=== PATIENT | female | born 1980 | race Caucasian/White ===

== ENCOUNTER 2024-02-26 12:49 | Outpatient (OUT) | payer MEDICARE, MEDICAID, SELFPAY ==
--- NOTE | 2024-02-26 | CONS_ITS ---
CONSULTATION DATE: 02/26/2024 TO: Dr. Longo CHIEF COMPLAINT: Includes severe left leg pain. HISTORY OF PRESENT ILLNESS: Review of systems, past medical/surgical history were obtained and documented on the health questionnaire and is available upon request. She is a 43-year-old female, reports having pain in the above mentioned areas for the last one year. She reports the pain as being 4-7/10 pain in the lower back and lower extremity, described as a sharp pain with a deep aching component, increased with activities such as standing, walking and performing transitioning maneuvers. Patient feels most comfortable in the semi-recumbent position. She also reports sitting too long is also uncomfortable at times. Denies any change in bowel and bladder habits or new sensorimotor changes in her lower extremities. MEDICATIONS: She currently has been on ibuprofen for at least the last three months. She reports that she has to limit the use of nonsteroidal agents secondary to ?easy bruisability?. EXAMINATION: Notable for patient having hypoesthesia along the left L4 dermatome, 3/5 strength of the left quadriceps and anterior tibialis, depressed patellar reflex. Straight leg raise is equivocally positive at approximately 90 degrees. She had no signs consistent with myelopathy. She had severe myofascial spasm of the left lumbar paravertebral muscles. IMPRESSION: Our impression is patient with chronic pain. She also has had physical therapy. She finished her last physical therapy sometime in the end of January, and she reports she went through her full course of physical therapy. RECOMMENDATIONS: I recommend patient discontinue her baclofen secondary to ineffectiveness. We will trial her on Zanaflex 4 mg, half a pill to one pill b.i.d. Obtain an x-ray of her lumbar spine, as well as MRI of her lumbar spine to determine if there is a mechanical etiology to her left L4 radicular process. As part of providing excellent, safe, comprehensive care, the following was completed at our patient's visit: 1. A medication reconciliation and review to ensure accurate knowledge of current/active medications, including asking our patients to inform us about any [id number] medications or herbal remedies/nutritional supplements/alternative remedies. 2. A review to specifically ensure our patients have had annual screening for: elevated body mass index (BMI, see intake chart for exact total), tobacco use, screening for depression, and screening for unhealthy alcohol use. When screening is concerning, patients are provided with education and the specific recommendation to discuss the concerning health issue and treatment options with their primary care provider. PERLITA
== END 2024-02-26 12:50 | disposition home or self-care (01) ==
PROVIDERS: PCP Family Medicine; Visit Provider Anesthesiology Pain Medicine
DX: G89.4 Chronic pain syndrome (principal); M79.662 Pain in left lower leg
CPT/HCPCS: G0463

== ENCOUNTER 2024-02-26 13:53 | Outpatient (OUT) | payer MEDICARE, MEDICAID, SELFPAY ==
--- NOTE | 2024-02-26 14:04 | XR_ITS ---
[facility] [id number] Patient Name: WON MCINTYRE MRN: [id number] date: 1980 Sex: F Assigned Patient Location: [facility] Current Patient Location: Accession/Order Number: [id number] Exam Date: 02/26/2024 14:15 Report Date: 02/27/2024 08:53 At the request of: VU AGUIRRE Procedure: XR lumbar spine 2-3V EXAMINATION: XR lumbar spine 2-3V HISTORY: Low Back Pain COMPARISON: No relevant comparison available. FINDINGS: BONES: Normal alignment with no acute fracture or spondylolisthesis. Mild degenerative spondylosis. Ffqv-lc-prvlqpea facet osteoarthropathy DISC SPACES: Normal. No significant disc height narrowing, subluxation, or endplate abnormality. PARASPINOUS: Negative. No paraspinous abnormality is seen. OTHER: Large amount of stool XR/XR lumbar spine 2-3V IMPRESSION: Mild degenerative changes Electronically authenticated by: SHERRIE JAEGER Date: 02/27/2024 08:53
== END 2024-02-26 13:54 | disposition home or self-care (01) ==
PROVIDERS: PCP Family Medicine; Visit Provider Anesthesiology Pain Medicine
DX: M54.50 Low back pain, unspecified (principal); M51.36 Other intervertebral disc degeneration, lumbar region
CPT/HCPCS: 72100

== ENCOUNTER 2024-03-11 13:21 | Outpatient (OUT) | payer MEDICARE, MEDICAID, SELFPAY ==
--- NOTE | 2024-03-11 13:28 | MR_ITS ---
[address] [address] Patient Name: WON MCINTYRE MRN: [id number] date: 1980 Sex: F Assigned Patient Location: MRI Current Patient Location: Accession/Order Number: [id number] Exam Date: 03/11/2024 13:39 Report Date: 03/12/2024 09:55 At the request of: VU AGUIRRE Procedure: MR lumbar spine wo con EXAMINATION: MR lumbar spine wo con HISTORY: Lumbar Radiculopathy ; low back and left leg pain COMPARISON: CT lumbar spine 04/09/2014 TECHNIQUE: A variety of imaging planes and parameters were utilized for visualization of suspected pathology. FINDINGS: For the purposes of numbering, sagittal T2 image # 8 extends from the T11 vertebral body superiorly to the S3 level inferiorly. PARASPINAL AREA: Normal with no visible mass. BONES: No fracture, pars defect, or osseous lesion. CORD/CAUDA EQUINA: Normal caliber, contour, and signal intensity. DISC LEVELS: 12-L1: Mild-moderate central canal narrowing without significant foraminal narrowing. Mild diffuse disc bulging with minimal disc at reduction. No significant facet arthropathy. L1-L2: No significant disc/facet abnormality, spinal stenosis, or foraminal stenosis. L2-L3: No significant disc/facet abnormality, spinal stenosis, or foraminal stenosis. L3-L4: Minimal central canal and foramen narrowing bilaterally. Minimal disc bulging without disc height reduction. Mild bilateral facet arthropathy. L4-L5: Mild degenerative facet arthropathy without significant central canal or foraminal narrowing. Normal disc. L5-S1: Early degenerative disc disease is present without focal protrusion or neural impingement. MR/MR lumbar spine wo con IMPRESSION: 1. Minimal degenerative changes of the spine, most notable at T12-L1 where there is mild/moderate central canal narrowing secondary to mild diffuse disc bulging. 2. No significant central canal or foraminal stenosis of the lumbar spine. Electronically authenticated by: LEXY BRENNER Date: 03/12/2024 09:55
== END 2024-03-11 13:22 | disposition home or self-care (01) ==
LOC: MRI 13:22
PROVIDERS: PCP Family Medicine; Visit Provider Anesthesiology Pain Medicine
DX: M54.16 Radiculopathy, lumbar region (principal); M51.36 Other intervertebral disc degeneration, lumbar region
CPT/HCPCS: 72148

== ENCOUNTER 2024-03-25 13:44 | Outpatient (OUT) | payer MEDICARE, SELFPAY ==
--- NOTE | 2024-03-25 | CONS_ITS ---
CONSULTATION DATE: 03/25/2024 TO: Dr. Longo HISTORY: Patient returns today complaining of pain in her mid back area. She describes the pain as being 6-7/10 pain, sharp in character, increased with activity such as standing, walking and performing transitioning maneuvers. Denied any change in bowel and bladder habits or new sensorimotor change in the lower extremities. EXAMINATION: Notable for patient having no clinical radiculopathy or myelopathy involving the lower extremities. She have severe pain with lumbar facet loading maneuvers on the left side at L1-2 and L2-3, with associated myofascial spasm along the lumbar paravertebral muscles. Her NICOLETTE on today?s visit was 20%. MEDICATIONS: Continues to use Zanaflex 4 mg pills, half a pill b.i.d., which offers only marginal reduction in pain symptoms. IMPRESSION: Patient appears to have chronic pain secondary to lumbosacral spondylosis, facet joint loading pain clinically. We did review her lumbosacral MRI in quite a bit of detail. RECOMMENDATIONS: We recommend proceeding with a diagnostic left sided L1-2 , L2-3 medial branch block. I have increased the Zanaflex 4 mg pills, half a pill to one pill up to b.i.d. as tolerated. As part of providing excellent, safe, comprehensive care, the following was completed at our patient's visit: 1. A medication reconciliation and review to ensure accurate knowledge of current/active medications, including asking our patients to inform us about any mrvq-lai-eyjhtua medications or herbal remedies/nutritional supplements/alternative remedies. 2. A review to specifically ensure our patients have had annual screening for: elevated body mass index (BMI, see intake chart for exact total), tobacco use, screening for depression, and screening for unhealthy alcohol use. When screening is concerning, patients are provided with education and the specific recommendation to discuss the concerning health issue and treatment options with their primary care provider. PERLITA
== END 2024-03-25 13:45 | disposition home or self-care (01) ==
LOC: PM 13:44
PROVIDERS: PCP Family Medicine; Visit Provider Anesthesiology Pain Medicine
DX: M47.816 Spondylosis without myelopathy or radiculopathy, lumbar region (principal); G89.4 Chronic pain syndrome
CPT/HCPCS: G0463

== ENCOUNTER 2024-04-22 07:58 | Day surgery (SDC) | payer MEDICARE, MEDICAID, SELFPAY ==
--- OUTSIDE RECORDS SUMMARY | 2024-04-22 08:18 | XMS_ITS | CCD ---
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 Role Phone ROWAN CASANOVA Primary Care Unavailable BRENDA WEI Attending Unavailab JUICE Sweet Attending Unavailable JUAN, DR IVORY Consulting [facility] GOL[facility] Primary Care Unavailable JUAN, DR IVORY Attending Unavailable JUAN, DR IVORY Admitting Unavailable JESÚS, DR CASTRO Consulting Unavailable Solo Navarrete Attending Unavailable Rumschlag DO, Kadi K Primary Care Provider Pawan Kerns MD Primary Care Provider RUMSCHLAG, KADI K Primary Care Unavailable MEAGAN MORAN Attending Unavailable OPHELIA LAZO Admitting Unavailable INPATIENT, TELENEUROLOGY Consulting Unavail able ÓSCAR WALLS Attending Unavailable ÓSCAR WALLS Referring Unavailable RUMSCHLAG, KADI K Primary Care Unavailable ÓSCAR WALLS Attending Unavailable ÓSCAR WALLS Referring Unavailable RUMSCHLAG, KADI K Primary Care Unavailable VICKY RUSHING Attending Unavailable VICKY RUSHING Referring Unavailable RUMSCHLAG, KADI K Primary Care Unavailable ÓSCAR WALLS Attending Unavailable ÓSCAR WALLS Referring Unavailable RUMSCHLAG, KADI K Primary Care Unavailable VICKY RUSHING Attending Unavailable СЕРГЕЙ VICKY M Referring Unavailable RUMSCHLAG, KADI K Primary Care Unavailable VICKY RUSHING Attending Unavailable СЕРГЕЙ, VICKY M Referring Unavailable RUMSCHLAG, KADI K Primary Care Unavailable SHIRA FRANCO Attending Unavailable SHIRA FRANCO Referring Unavailable RUMSCHLAG, KADI K Primary Care Unavailable RUMSCHLAG, KADI K Primary Care Unavailable JUVE ALANIZ Attending Unavailable RUMSCHLAG, KADI K Primary Care Unavailable JUVE ALANIZ Attending Unavailable RUMSCHLAG, KADI K Primary Care Unavailable JUVE ALANIZ Attending Unavailable JUAN FRANCO Attending Unavailable RUMSCHLAG, KADI K Referring Unavailable KADI HERMOSILLO Primary Care Unavailable Kadi Hermosillo DO Primary Care Provider MATTHEW GIRON Attending Unavailable JESÚS, MATTHEW Godoy Referring Unavailable JUVE GARRETT Attending Unavailable KADI HERMOSILLO Referring Unavailable GIRON, MATTHEW Godoy Attending Unavailable GIRON, MATTHEW Godoy Attending Unavailable XAVIER, GERARDO Godoy Attending Unavailable GIRON, MATTHEW Godoy Referring Unavailable XAVIER, GERARDO Godoy Attending Unavailable GIRON, J Referring Unavailable XAVIER, GERARDO Godoy Attending Unavailable GIRON, J Referring Unavailable XAVIER, GERARDO Godoy Attending Unavailable GIRON, J Referring Unavailable JANETH RODRIGUEZ Attending Unavailable LEXY PASCUAL Attending Unavailable XAVIER, GERARDO Godoy Attending Unavailable GIRON, MATTHEW Godoy Referring Unavailable ANGIE YOUNGBLOOD Attending Unavailable GIRON, MATTHEW Godoy Referring Unavailable XAVIER, GERARDO Godoy Attending Unavailable GIRON, MATTHEW Godoy Referring Unavailable GIRON, MATTHEW Godoy Attending Unavailable XAVIER, GERARDO Godoy Attending Unavailable GIRON, MATTHEW Godoy Referring Unavailable XAVIER, GERARDO Godoy Attending Unavailable GIRON, MATTHEW Godoy Referring Unavailable JR. MORENO GEORGE C Attending Unavaila ble Allergies Allergy Classification Reported Allergen(s) Allergy Type Date of Onset Reaction(s) Facility (2 sources) Amoxicillin; Translations: [AMOXICILLIN] Drug Allergy 02-14-20 17 [facility] Repository (2 sources) Aspirin; Translations: [ASPIRIN] Drug Allergy 02-14-20 17 [facility] Repository (2 sources) Amoxicillin Drug Allergy 02-14-20 17 [facility] Work Phone: (2 sources) Aspirin Drug Allergy 02-14-20 17 Other (See Comments) [facility] (6 sources) Ibuprofen; Translations: [IBUPROFEN] Drug Allergy 02-14-20 Other (See Comments) [facility] (3 sources) traMADol; Translations: [TRAMADOL HCL] Drug Allergy 03-09-20 19 [facility] (3 sources) Aluminum aspirin Drug Allergy 12-10-19 [facility] (3 sources) HYDROmorphone Drug Allergy 04-18-20 [facility] (3 sources) Ketorolac trometamol Allergy to substance 04-18-20 [facility] (3 sources) Penicillins Drug Intolerance 12-10-19 17 [facility] (3 sources) traMADol Drug Allergy 03-09-20 19 [facility] (3 sources) Amoxicillin-Pot Clavulanate Drug Allergy 04-18-20 23 [facility] Work Phone: Medications Current Medications Medication Drug Class(es) Dates Sig (Normalized) Sig (Original) acetaminophen 325 mg / HYDROcodone bitartrate 5 mg oral tablet (3 sources) Opioid Agonist Start: 07-17-2023 HYDROcodone-aceta minophen ([place]) 5-325 MG tablet albuterol 0.83 mg/ml inhalation solution (7 sources) beta2-Adrenergic Agonist Start: 03-16-2023 albuterol (2.5 MG/3ML) 0.083% nebulizer solution USE 1 VIAL IN NEBULIZER EVERY 4 HOURS NEEDED 0 03/16/2023 Active take 1.25 mg by inha lation every six hours as needed for wheezing albuterol (ACCUNEB) 1.25 mg/3 mL nebuliz er solution Inhale 3 mL (1.25 mg total) by nebulization every 6 (six) hours as needed for wheezing. 0 Active take 2 puff(s) by in halation every six hours as needed for wheezing albuterol (PROVENTIL HFA;VENTOLIN HFA) 9 0 mcg/actuation inhaler Inhale 2 puffs every 6 (six) hours as needed for wheezing. 0 Active baclofen 20 mg oral tablet (5 sources) gamma-Aminobutyric Acid-ergic Agonist Start: 10-25-2023 take 1 tablet by mouth twice daily as needed baclofen (Lioresal) 20 MG tablet Take 20 mg by mouth 2 (two) times a day as needed 0 10/25/2023 Active Start: 02-15-2023 take 1 tablet by mercedes th twice daily as needed baclofen (LIORESAL) 10 mg tablet Take 1 tablet (10 mg total) by mouth 2 (two) times a day as needed. 0 02/15/2023 Active benzonatate 100 mg oral capsule (1 source) Non-narcotic Antitussive Start: 11-21-2023 End: 11-28-2023 take 1 capsule by mouth every eight hours benzonatate (TESSALON PERLES) 100 mg capsule Take 1 capsule (100 mg total) by mouth every 8 (eight) hours for 7 days. 21 capsule 0 11/21/2023 11/28/2023 Active empagliflozin 10 mg oral tablet (2 sources) Sodium-Glucose Cotransporter 2 Inhibitor take 1 tablet by mouth in the morning empagliflozin (JARDIANCE) 10 mg tablet tablet Take 1 tablet (10 mg total) by mouth in the morning. 0 Active 60 actuat fluticasone propionate 0.5 mg/actuat / salmeterol 0.05 mg/actuat dry powder inhaler (5 sources) Corticosteroid, beta2-Adrenergic Agonist Start: 04-20-2021 take 1 puff(s) by inhalation once ADVAIR DISKUS 500-50 mcg/dose DISKUS Inhale 1 puff every 12 (twelve) hours. 0 04/20/2021 Active take 2 puff(s) by in halation in the morning fluticasone-salmeterol (Advair) 45-21 MC G/ACT inhaler Inhale 2 puffs in the morning and 2 puffs before bedtime. Rinse mouth with water after use to reduce aftertaste and incidence of candidiasis. Do not swallow.. 0 Active insulin aspart, human 100 unt/ml injectable solution (2 sources) Insulin Analog insulin aspart U-100 (NovoLOG) 100 unit/mL injection Inject 0.06 mL (6 Units total) under the skin in the morning and 0.06 mL (6 Units total) at noon and 0.06 mL (6 Units total) in the evening. Inject before meals. 0 Active 3 ml insulin glargine 100 unt/ml pen injector (2 sources) Insulin Analog Start: 1 LANTUS SOLOSTAR U-100 INSULIN 100 unit/mL (3 mL) insulin pen Inject 60 Units under the skin once daily at bedtime. 0 03/18/2021 Active lisinopril 5 mg oral tablet (5 sources) Angiotensin Converting Enzyme Inhibitor Start: 2 take 1 tablet by mouth in the morning lisinopriL (PRINIVIL,ZESTRIL) 5 mg tablet Take 1 tablet (5 mg total) by mouth in the morning. 90 tablet 3 08/03/2022 Active Start: 07-30-2022 take 1 tablet by mercedes th once daily lisinopril 2.5 MG tablet TAKE 1 TABLET BY MOUTH ONCE DAILY FOR 90 DAYS 0 07/30/2022 Active metFORMIN hydrochloride 1000 mg oral tablet (2 sources) Biguanide take 1 tablet by mouth in the morning, then take 1 tablet by mouth at mealtime metFORMIN (GLUCOPHAGE) 1000 mg tablet Take 1 tablet (1,000 mg total) by mouth in the morning and 1 tablet (1,000 mg total) in the evening. Take with meals. 0 Active montelukast 10 mg oral tablet (2 sources) Leukotriene Receptor Antagonist take 1 tablet by mouth once daily montelukast (SINGULAIR) 10 mg tablet Take 1 tablet (10 mg total) by mouth nightly. 0 Active idhtquwg-fued-CY-calciu m &mins (THERAGRAN-M) 9 mg iron-400 mcg tablet (2 sources) vpucwazw-svzv-ML -ca lcium &mins (THERAGRAN-M) 9 mg iron-400 mcg tablet Take 1 tablet by mouth in the morning. 0 Active omeprazole 40 mg delayed release oral capsule (5 sources) Proton Pump Inhibitor take 1 capsule by mouth in the morning omeprazole (PriLOSEC) 40 mg capsule Take 1 capsule (40 mg total) by mouth in the morning. 0 Active phenazopyridine hydrochloride 200 mg oral tablet (3 sources) Start: 05-08-20 Pyridium 200 MG tablet every 8 (eight) hours. 0 05/08/2023 Active rosuvastatin calcium 40 mg oral tablet (5 sources) HMG-CoA Reductase Inhibitor Start: 02-23-20 take 1 tablet by mouth once daily rosuvastatin (Crestor) 40 MG tablet TAKE 1 TABLET BY MOUTH ONCE DAILY FOR 90 DAYS 0 02/22/2023 Active take 2 tablets by mouth in the m orning rosuvastatin (CRESTOR) 20 mg tablet Take 2 tablets (40 mg total) by mouth in the morning. 0 Active SITagliptin 100 mg oral tablet (2 sources) Dipeptidyl Peptidase 4 Inhibitor Start: 04-20-2021 take 1 tablet by mouth in the morning JANUVIA 100 mg tablet Take 1 tablet (100 mg total) by mouth in the morning. 0 04/20/2021 Active 24 hr venlafaxine 150 mg extended release oral capsule (5 sources) Serotonin and Norepinephrine Reuptake Inhibitor Start: 02-22-2023 take 1 capsule by mouth once daily at mealtime venlafaxine XR (Effexor XR) 150 MG 24 hr capsule TAKE 1 CAPSULE BY MOUTH ONCE DAILY WITH FOOD 0 02/22/2023 Active take 2 tablets by mo ut in the morning, then take 2 tablets by mouth at bedtime venlafaxine (EFFEXOR) 75 mg tablet Take 2 tablets (150 mg total) by mouth in the morning and 2 tablets (150 mg total) before bedtime. 0 Active Completed/Discontinued Medications Medication Drug Class(es) Dates Sig (Normalized) Sig (Original) predniSONE 20 mg oral tablet (1 source) Start: 11-23-2023 End: 11-27-2023 take 2 tablets by mouth in the morning predniSONE (DELTASONE) 20 mg tablet Take 2 tablets (40 mg total) by mouth in the morning for 4 days. 8 tablet 0 11/23/2023 11/27/2023 Problems Active Problems Problem Classification Problem Date Documented Da te Episodic/Chronic Abdominal pain (4 sources) Pelvic and perineal pain; Translations: [PELVIC AND PERINEAL PAIN] Onset: 1 Episodic Acute bronchitis (1 source) Acute bronchitis, unspecified; Translations: [Acute bronchitis, unspecified] Onset: 4 Episodic Anxiety disorders (6 sources) Mixed anxiety and depressive disorder; Translations: [Anxiety disorder, unspecified] Onset: 2 02-07-2022 Chronic Asthma (5 sources) Asthma; Translations: [Unspecified asthma, uncomplicated] Onset: 2 02-07-2022 Chronic Blindness and vision defects (5 sources) Visual impairment; Translations: [Unspecified visual loss] Onset: 2 02-07-2022 Chronic Cardiac dysrhythmias (1 source) Tachycardia, unspecified; Translations: [Tachycardia, unspecified] Onset: 3 Episodic Chronic obstructive pulmonary disease and bronchiectasis (5 sources) Chronic obstructive lung disease; Translations: [Chronic obstructive pulmonary disease, unspecified] Onset: 2 10-02-2023 Chronic Chronic ulcer of skin (3 sources) Chronic ulcer of foot; Translations: [Non-pressure chronic ulcer of other part of unspecified foot with unspecified severity] Onset: 3 05-18-2023 Chronic Diabetes mellitus without complication (6 sources) Type 2 diabetes mellitus without complications; Translations: [Type 2 diabetes mellitus] Onset: 1 10-02-2023 Chronic Diseases of white blood cells (5 sources) Band neutrophil count above reference range; Translations: [Bandemia] Onset: 3 Resolved: 4 08-02-2023 Chronic Disorders of lipid metabolism (5 sources) Hyperlipidemia; Translations: [Hyperlipidemia, unspecified] Onset: 2 02-07-2022 Chronic Esophageal disorders (5 sources) Gastroesophageal reflux disease without esophagitis; Translations: [Gastro-esophageal reflux disease without esophagitis] Onset: 2 10-02-2023 Chronic Essential hypertension (5 sources) Hypertensive disorder; Translations: [Essential (primary) hypertension] Onset: 2 10-02-2023 Chronic Gastroduodenal ulcer (except hemorrhage) (5 sources) Peptic ulcer; Translations: [Peptic ulcer, site unspecified, unspecified as acute or chronic, without hemorrhage or perforation] Onset: 2 02-07-2022 Chronic Headache; including migraine (5 sources) Migraine; Translations: [Migraine, unspecified, not intractable, without status migrainosus] Onset: 2 02-07-2022 Chronic Joint disorders and dislocations; trauma-related (6 sources) Chondromalacia of left patella; Translations: [Chondromalacia patellae, left knee] Onset: 3 05-18-2023 Chronic Malaise and fatigue (1 source) Fatigue Onset: 3 Episodic Mood disorders (6 sources) Bipolar disorder; Translations: [Bipolar disorder, unspecified] Onset: 2 10-02-2023 Chronic Osteoarthritis (3 sources) Arthritis of left knee; Translations: [Unilateral primary osteoarthritis, left knee] Onset: 3 05-18-2023 Chronic Other connective tissue disease (1 source) Pain in right toe(s); Translations: [Pain in right toe(s)] Onset: 4 Episodic Other connective tissue disease (1 source) Pain in toe Onset: 4 Episodic Other ear and sense organ disorders (1 source) Hearing loss; Translations: [Unspecified hearing loss, unspecified ear] 11-17-2023 Chronic Other gastrointestinal disorders (1 source) Constipation, unspecified; Translations: [CONSTIPATION UNSPECIFIED] Onset: 1 Episodic Other liver diseases (1 source) Abnormal levels of other serum enzymes; Translations: [ABNORMAL LEVELS OTHER SERUM ENZYMES] Onset: 1 Episodic Other nervous system disorders (3 sources) Difficulty walking; Translations: [Difficulty in walking, not elsewhere classified] Onset: 3 05-18-2023 Chronic Other nervous system disorders (3 sources) Chronic pain; Translations: [Other chronic pain] Onset: 3 05-18-2023 Chronic Other non-traumatic joint disorders (1 source) Pain in right elbow; Translations: [Pain in right elbow] Onset: 4 Episodic Other non-traumatic joint disorders (1 source) Pain in elbow Onset: 4 Episodic Other non-traumatic joint disorders (1 source) Pain in left shoulder; Translations: [Pain in left shoulder] Onset: 3 Episodic Other non-traumatic joint disorders (1 source) Shoulder pain Onset: 3 Episodic Other screening for suspected conditions (not mental disorders or infectious disease) (3 sources) Ultrasound scan abnormal; Translations: [Abnormal findings on diagnostic imaging of other specified body structures] Onset: 3 05-18-2023 Chronic Paralysis (6 sources) Cerebral palsy; Translations: [Cerebral palsy, unspecified] Onset: 2 10-02-2023 Chronic Residual codes; unclassified (5 sources) Delirium; Translations: [Disorientation, unspecified] Onset: 3 Resolved: 4 10-01-2023 Episodic Residual codes; unclassified (1 source) Tobacco user; Translations: [Tobacco use] 11-17-2023 Episodic Residual codes; unclassified (1 source) Altered mental status, unspecified; Translations: [Altered mental status, unspecified] Onset: 4 Episodic Residual codes; unclassified (1 source) Memory loss Onset: 4 Episodic Residual codes; unclassified (1 source) Disorientation, unspecified; Translations: [Disorientation, unspecified] Onset: 3 Episodic Residual codes; unclassified (1 source) Altered mental status; Translations: [Altered mental status, unspecified] 11-27-2023 Episodic Rheumatoid arthritis and related disease (5 sources) Rheumatoid arthritis; Translations: [Rheumatoid arthritis, unspecified] Onset: 2 02-07-2022 Chronic Spondylosis; intervertebral disc disorders; other back problems (10 sources) Lumbosacral spondylosis without myelopathy; Translations: [Spondylosis without myelopathy or radiculopathy, lumbosacral region] Onset: 7 02-13-2017 Chronic Substance-related disorders (1 source) Nicotine dependence, cigarettes, uncomplicated; Translations: [NICOTINE DEPEND CIGARETTES UNCOMP] Onset: 1 Chronic Unclassified (1 source) Cold Like Symptoms Onset: 4 Unclassified (1 source) Ill Onset: 3 Past or Other Problems Problem Classification Problem Date Documented Da te Episodic/Chronic Biliary tract disease (3 sources) Biliary calculus; Translations: [Calculus of gallbladder without cholecystitis without obstruction] Onset: 05-18-2023 05-18-2023 Episodic Diabetes mellitus with complications (8 sources) Diabetic ketoacidosis without coma; Translations: [Type 1 diabetes mellitus with ketoacidosis without coma] Onset: 04-10-2022 Resolved: 10-02-2023 10-02-2023 Chronic Diseases of mouth; excluding dental (4 sources) Lesion of salivary gland; Translations: [Disease of salivary gland, unspecified] Onset: 11-14-2023 Resolved: 11-14-2023 11-14-2023 Episodic Heart valve disorders (5 sources) Heart murmur; Translations: [Cardiac murmur, unspecified] Onset: 02-07-2022 02-07-2022 Episodic Mood disorders (1 source) Mood disorders Onset: 11-27-2023 11-27-2023 Neoplasms of unspecified nature or uncertain behavior (5 sources) Thrombocytosis; Translations: [Thrombocytosis] Onset: 08-02-2023 Resolved: 11-14-2023 08-02-2023 Episodic Other and unspecified benign neoplasm (3 sources) Benign neoplasm of bone; Translations: [Benign neoplasm of bone and articular cartilage, unspecified] Onset: 05-18-2023 05-18-2023 Episodic Other bone disease and musculoskeletal deformities (5 sources) Disorder of bone, unspecified; Translations: [Disorder of bone and cartilage, unspecified] Onset: 09-27-2017 09-27-2017 Episodic Other connective tissue disease (3 sources) Recurrent falls ; Translations: [Repeated falls] Onset: 05-18-2023 05-18-2023 Episodic Other non-traumatic joint disorders (3 sources) Pain in left knee; Translations: [Pain in joint, lower leg] Onset: 09-21-2018 05-18-2023 Episodic Other screening for suspected conditions (not mental disorders or infectious disease) (3 sources) Mammography abnormal; Translations: [Other abnormal and inconclusive findings on diagnostic imaging of breast] Onset: 05-18-2023 05-18-2023 Episodic Spondylosis; intervertebral disc disorders; other back problems (5 sources) Backache; Translations: [Dorsalgia, unspecified] Onset: 02-07-2022 02-07-2022 Episodic Thyroid disorders (5 sources) Disorder of thyroid gland; Translations: [Disorder of thyroid, unspecified] Onset: 02-07-2022 02-07-2022 Episodic Results Test Name Value Interpretation Reference Range Facility RAPID STREP SCR NURSINGon S. pyogenes Ag EIA Ql (Throat) Negative [facility] Comment on above: Performed By: #### C BCA, CMP, 63350-9, 5643-2 #### [facility] ([id number]) [address] [place] [address], [place] [address] SARS/FLU A+B/RSV by NAAT/Mol ecularon 11-21-2023 SARS/FLU A+B/RSV by NAAT/Molecular FLU A PCR Negative (qualifier value) FLU B PCR Negative (qualifier value) RSV by PCR Negative (qualifier value) SARS CoV 2 Not detected (qualifier value) NOTE The Xpert Xpress SARS-CoV-2/Flu/RSV Plus test is a rapid, multiplexed real-time RT-PCR test intended for the simultaneous qualitative detection and differentiation of SARS-CoV-2, influenza A, influenza B and respiratory syncytial virus (RSV) viral RNA from individuals suspected of respiratory viral infection consistent with COVID-19 by their healthcare provider. This test has not been validated in asymptomatic patients. The Xpert Xpress SARS-CoV-2 test is intended for use by qualified and trained operators who are performing tests using either [employer] or [employer] systems and is limited to laboratories that meet the CLIA requirements to perform high and moderate complexity tests. The Xpert Xpress SARS-CoV-2/Flu/RSV Plus is only for use under the Food and Drug Administration's Emergency Use Authorization. Results are for the simultaneous detection and differentiation of SARS-CoV-2, influenza A, influenza B and RSV nucleic acids in clinical specimens. SARS-CoV-2, influenza A, influenza B and RSV RNA identified by this test are generally detectable in upper respiratory samples during the acute phase of infection. Positive results are indicative of the presence of the identified virus, but do not rule out bacterial infection or co-infection with other pathogens not detected by this test. Clinical correlation with patient history and other diagnostic information is necessary to determine patient infection status. The agent detected may not be the definite cause of disease. Negative results do not preclude SARS-CoV-2, influenza A, influenza B and RSV infection and should not be used as the sole basis for treatment or other patient management decisions. Negative results must be combined with clinical observations, patient history and epidemiological information. An Invalid result may occur with specimen-associated inhibition unable to be resolved with specimen repeat. Fact Sheet for Healthcare Providers: https://www.fda.gov/me pascual/370435/download Fact Sheet for Patients: https://www.fda.gov/me pascual/361878/download Normal [facility] Comment on above: Performed By: #### C [facility], 10629-2, 5643-2 #### [facility] ([id number]) [address] [place] [address] CBC AND AUTO DIFFon 10-03-20 ABSOLUTE BASOPHIL 0.0 X10E9/L Normal 0.0-0.2 [facility] Comment on above: Performed By: #### C [facility], 96399-1, 5643-2 #### [facility] ([id number]) [address] [place] [address] ABSOLUTE NEUTROPHIL 3.0 X10E9/L Normal 1.5-6.6 [facility] Comment on above: Performed By: #### Aaron ANDERSON CMP, , 5642- #### [facility] ([id number]) [address] [place] [address]290 Basophils/100 WBC (Bld) 0.6 % Normal [facility] Comment on above: Performed By: #### Aaron ANDERSON CMP, , 5642-2 #### [facility] ([id number]) [address] [place] [address] Eosinophils (Bld) [#/Vol] 0.1 10*3/uL Normal 0.0-0.4 [facility] Comment on above: Performed By: #### Aaron ANDERSON CMP, , 5642- #### [facility] ([id number]) [address] [place] [address]882 Eosinophils/100 WBC (Bld) 0.9 % Normal [facility] Comment on above: Performed By: #### Aaron ANDERSON CMP, , 5642- #### [facility] ([id number]) [address] [place] [address]13 Erythrocyte distribution width (RBC) [Ratio] 13.6 % Normal 11.5-15.0 [facility] Comment on above: Performed By: #### Aaron ANDERSON CMP, , 56-2 #### [facility] ([id number]) [address] [place] [address]73 Hematocrit (Bld) [Volume fraction] 39.7 % Normal 35-47 [facility] Comment on above: Performed By: #### Aaron ANDERSON CMP, , 43-2 #### [facility] ([id number]) [address] [place] [address]8965 Hemoglobin (Bld) [Mass/Vol] 13.1 g/dL Normal 11.7-15.5 [facility] Comment on above: Performed By: #### Aaron ANDERSON CMP, , 5643-2 #### [facility] ([id number]) [address] [place] [address]9920 Lymphocytes (Bld) [#/Vol] 2.2 10*3/uL Normal 1.0-3.5 [facility] Comment on above: Performed By: #### Aaron ANDERSON [facility], , 5642-2 #### [facility] ([id number]) [address] [place] [address]107 Lymphocytes/100 WBC (Bld) 36.6 % Normal [facility] Comment on above: Performed By: #### Aaron ANDERSON [facility], , 5642-2 #### [facility] ([id number]) [address] [place] [address] 47031 MCH (RBC) [Entitic mass] 28.5 pg Normal 27-34 [facility] Comment on above: Performed By: #### Aaron ANDERSON [facility], , 5642-2 #### [facility] ([id number]) [address] [place] [address] 89343 MCHC (RBC) [Mass/Vol] 32.9 g/dL Normal 32-36 [facility] Comment on above: Performed By: #### Aaron ANDERSON CMP, , 5643-2 #### [facility] ([id number]) [address] [place] [address] 73133 MCV (RBC) [Entitic vol] 87 fL Normal 80-100 [facility] Comment on above: Performed By: #### Aaron ANDERSON CMP, , 5643-2 #### [facility] ([id number]) [address] [place] [address] 58161 Monocytes (Bld) [#/Vol] 0.8 10*3/uL Normal 0-0.9 [facility] Comment on above: Performed By: #### Aaron ANDERSON CMP, , 56- #### [facility] ([id number]) [address] [place] [address] 18314 Monocytes/100 WBC (Bld) 13.1 % Normal [facility] Comment on above: Performed By: #### Aaron ANDERSON CMP, , 5642-2 #### [facility] ([id number]) [address] [place] [address] 40889 Neutrophils/100 WBC (Bld) 48.8 % Normal [facility] Comment on above: Performed By: #### Aaron ANDERSON CMP, , 5642- #### [facility] ([id number]) [address] [place] [address] 75527 Platelet mean volume (Bld) [Entitic vol] 7.7 fL Normal 7-12 [facility] Comment on above: Performed By: #### Aaron ANDERSON CMP, , 56- #### [facility] ([id number]) [address] [place] [address] 32699 Platelets (Bld) [#/Vol] 392 10*3/uL Normal 150-450 [facility] Comment on above: Performed By: #### Aaron ANDERSON CMP, , 56-2 #### [facility] ([id number]) [address] [place] [address] 26064 RBC COUNT 4.58 X10E12/L Normal 3.80-5.20 [facility] Comment on above: Performed By: #### Aaron ANDERSON, CMP, , 5643-2 #### [facility] ([id number]) [address] [place] [address] 84118 WBC (Bld) [#/Vol] 6.1 10*3/uL Normal 4.0-11.0 [facility] Comment on above: Performed By: #### C BCA, CMP, , 5643-2 #### [facility] ([id number]) [address] [place] [address] 04942 COMPREHENSIVE METABOLIC PANE Artur 10-03-2023 Albumin [Mass/Vol] 3.6 g/dL Normal 3.2-5.3 [facility] Comment on above: Performed By: #### C BCA, CMP, , 43-2 #### [facility] ([id number]) [address] [place] [address] 94054 ALP [Catalytic activity/Vol] 86 U/L Normal 39-130 [facility] Comment on above: Performed By: #### C BCA, CMP, , 43-2 #### [facility] ([id number]) [address] [place] [address] 57535 ALT [Catalytic activity/Vol] 24 U/L Normal 0-31 [facility] Comment on above: Performed By: #### C BCA, CMP, , 5643-2 #### [facility] ([id number]) [address] [place] [address] 09764 Anion gap [Moles/Vol] 7 mmol/L Normal 5-15 [facility] Comment on above: Performed By: #### C BCA, CMP, , 5643-2 #### [facility] ([id number]) [address] [place] [address] 10654 AST [Catalytic activity/Vol] 36 U/L Normal 0-41 [facility] Comment on above: Performed By: #### C BCA, CMP, , 5643-2 #### [facility] ([id number]) [address] [place] [address] 47842 Bilirubin [Mass/Vol] 0.7 mg/dL Normal 0.3-1.2 [facility] Comment on above: Performed By: #### C JUSTIN, CMP, , 5642-2 #### [facility] ([id number]) [address] [place] [address] 88368 Calcium [Mass/Vol] 8.5 mg/dL Normal 8.5-10.5 [facility] Comment on above: Performed By: #### C BCA, CMP, , 5642-2 #### [facility] ([id number]) [address] [place] [address] 28510 Chloride [Moles/Vol] 107 mmol/L Normal 98-109 [facility] Comment on above: Performed By: #### C JUSTIN, CMP, , 5642- #### [facility] ([id number]) [address] [place] [address] 22577 CO2 [Moles/Vol] 23 mmol/L Normal 22-32 [facility] Comment on above: Performed By: #### C JUSTIN, CMP, , 56-2 #### [facility] ([id number]) [address] [place] [address] 11005 Creatinine [Mass/Vol] 0.70 mg/dL Normal 0.40-1.00 [facility] Comment on above: Result Comment: METH OD TRACEABLE TO IDMS STANDARD Performed By: #### C BCA, CMP, , 5642-2 #### [facility] ([id number]) [address] [place] [address] 03920 eGFR (CKD-EPI) NON-RACE DEPENDENT >90 Normal >59 [facility] Comment on above: Result Comment: Reported eGFR is based on the CKD-EPI 2020 equation that does not use a race coefficient. Performed By: #### C BCA, CMP, , 43-2 #### [facility] ([id number]) [address] [place] [address] 63082 Glucose [Mass/Vol] 78 mg/dL Normal 65-99 [facility] Comment on above: Performed By: #### C JUSTIN CMP, , 5643-2 #### [facility] ([id number]) [address] [place] [address] 40918 Potassium [Moles/Vol] 3.6 mmol/L Normal 3.5-5.0 [facility] Comment on above: Performed By: #### C JUSTIN CMP, , 5643-2 #### [facility] ([id number]) [address] [place] [address] 89458 Protein [Mass/Vol] 6.6 g/dL Normal 6.0-8.0 [facility] Comment on above: Performed By: #### C JUSTIN, CMP, , 43-2 #### [facility] ([id number]) [address] [place] [address] 84744 Sodium [Moles/Vol] 137 mmol/L Normal 134-146 [facility] Comment on above: Performed By: #### C JUSTIN, CMP, , 5643-2 #### [facility] ([id number]) [address] [place] [address] 33017 Urea nitrogen [Mass/Vol] 17 mg/dL Normal 5-23 [facility] Comment on above: Performed By: #### C BCA, CMP, , 5643-2 #### [facility] ([id number]) [address] [place] [address] 85274 MAGNESIUMon 10-03-2023 Magnesium [Mass/Vol] 1.9 mg/dL Normal 1.8-2.6 [facility] Comment on above: Performed By: #### C JUSTIN, CMP, , 5643-2 #### [facility] ([id number]) [address] [place] [address] 72954 AMMONIAon 10-02-2023 Ammonia (P) [Moles/Vol] 33 umol/L Normal 11-35 [facility] Comment on above: Performed By: #### Aaron ANDERSON CMP, , 5643-2 #### [facility] ([id number]) [address] [place] [address] 68505 BLOOD CULTUREon 10-02-2023 Bacteria identified Aer cx Nom (Bld) SPECIMEN NOTES SUBOPTIMAL VOLUME OF BLOOD COLLECTED, RESULTS MAY BE AFFECTED. CULTURE RESULTS NO GROWTH [address] [facility] Comment on above: Performed By: #### Aaron ANDERSON CMP, , 5643-2 #### [facility] ([id number]) [address] [place] [address] 43156 Bacteria identified Aer cx Nom (Bld) SPECIMEN NOTES SUBOPTIMAL VOLUME OF BLOOD COLLECTED, RESULTS MAY BE AFFECTED. CULTURE RESULTS NO GROWTH [address] [facility] Comment on above: Performed By: #### Aaron ANDERSON CMP, , 5643-2 #### [facility] ([id number]) [address] [place] [address] 20558 CBC AND AUTO DIFFon 10-02-20 23 ABSOLUTE BASOPHIL 0.1 X10E9/L Normal 0.0-0.2 [facility] Comment on above: Performed By: #### Aaron ANDERSON CMP, , 5643-2 #### [facility] ([id number]) [address] [place] [address] 68081 ABSOLUTE NEUTROPHIL 8.5 X10E9/L High 1.5-6.6 [facility] Comment on above: Performed By: #### Aaron ANDERSON CMP, , 5643-2 #### [facility] ([id number]) [address] [place] [address] 84353 Basophils/100 WBC (Bld) 0.5 % Normal [facility] Comment on above: Performed By: #### Aaron ANDERSON CMP, , 56- #### [facility] ([id number]) [address] [place] [address] 39736 Eosinophils (Bld) [#/Vol] 0.1 10*3/uL Normal 0.0-0.4 [facility] Comment on above: Performed By: #### Aaron ANDERSON [facility], , 5642- #### [facility] ([id number]) [address] [place] [address] 73161 Eosinophils/100 WBC (Bld) 0.6 % Normal [facility] Comment on above: Performed By: #### Aaron ANDERSON CMP, , 5642- #### [facility] ([id number]) [address] [place] [address] 40529 Erythrocyte distribution width (RBC) [Ratio] 13.6 % Normal 11.5-15.0 [facility] Comment on above: Performed By: #### Aaron ANDERSON [facility], , 5642-2 #### [facility] ([id number]) [address] [place] [address] 71083 Hematocrit (Bld) [Volume fraction] 43.3 % Normal 35-47 [facility] Comment on above: Performed By: #### Aaron ANDERSON CMP, , 5642-2 #### [facility] ([id number]) [address] [place] [address] 54292 Hemoglobin (Bld) [Mass/Vol] 14.4 g/dL Normal 11.7-15.5 [facility] Comment on above: Performed By: #### Aaron ANDERSON CMP, , 43-2 #### [facility] ([id number]) [address] [place] [address] 93262 Lymphocytes (Bld) [#/Vol] 3.2 10*3/uL Normal 1.0-3.5 [facility] Comment on above: Performed By: #### Aaron ANDERSON CMP, , 43-2 #### [facility] ([id number]) [address] [place] [address] 82875 Lymphocytes/100 WBC (Bld) 24.9 % Normal [facility] Comment on above: Performed By: #### Aaron ANDERSON, CMP, , 5642-2 #### [facility] ([id number]) [address] [place] [address] 99005 MCH (RBC) [Entitic mass] 28.9 pg Normal 27-34 [facility] Comment on above: Performed By: #### Aaron ANDERSON CMP, , 43-2 #### [facility] ([id number]) [address] [place] [address] 11226 MCHC (RBC) [Mass/Vol] 33.4 g/dL Normal 32-36 [facility] Comment on above: Performed By: #### Aaron ANDERSON CMP, , 5643-2 #### [facility] ([id number]) [address] [place] [address] 45069 MCV (RBC) [Entitic vol] 87 fL Normal 80-100 [facility] Comment on above: Performed By: #### Aaron ANDERSON, CMP, , 43-2 #### [facility] ([id number]) [address] [place] [address] 18489 Monocytes (Bld) [#/Vol] 1.1 10*3/uL High 0-0.9 [facility] Comment on above: Performed By: #### Aaron ANDERSON CMP, , 43-2 #### [facility] ([id number]) [address] [place] [address] 61244 Monocytes/100 WBC (Bld) 8.5 % Normal [facility] Comment on above: Performed By: #### Aaron ANDERSON CMP, , 5643-2 #### [facility] ([id number]) [address] [place] [address] 78896 Neutrophils/100 WBC (Bld) 65.5 % Normal [facility] Comment on above: Performed By: #### Aaron ANDERSON CMP, , 43-2 #### [facility] ([id number]) [address] [place] [address] 79310 Platelet mean volume (Bld) [Entitic vol] 7.7 fL Normal 7-12 [facility] Comment on above: Performed By: #### Aaron ANDERSON CMP, , 5643-2 #### [facility] ([id number]) [address] [place] [address] 89575 Platelets (Bld) [#/Vol] 510 10*3/uL High 150-450 [facility] Comment on above: Performed By: #### Aaron ANDERSON CMP, , 5643-2 #### [facility] ([id number]) [address] [place] [address] 24553 RBC COUNT 4.99 X10E12/L Normal 3.80-5.20 [facility] Comment on above: Performed By: #### Aaron ANDERSON, CMP, , 5643-2 #### [facility] ([id number]) [address] [place] [address] 37753 WBC (Bld) [#/Vol] 13.0 10*3/uL High 4.0-11.0 [facility] Comment on above: Performed By: #### Aaron ANDERSON CMP, , 5643-2 #### [facility] ([id number]) [address] [place] [address] 09116 COMPREHENSIVE METABOLIC PANE [facility] 10-02-2023 Albumin [Mass/Vol] 4.3 g/dL Normal 3.2-5.3 [facility] Comment on above: Performed By: #### C BCA, CMP, , 5643-2 #### [facility] ([id number]) [address] [place] [address] 38695 ALP [Catalytic activity/Vol] 98 U/L Normal 39-130 [facility] Comment on above: Performed By: #### C BCA, CMP, , 43-2 #### [facility] ([id number]) [address] [place] [address] 14753 ALT [Catalytic activity/Vol] 17 U/L Normal 0-31 [facility] Comment on above: Performed By: #### C BCA, CMP, , 43-2 #### [facility] ([id number]) [address] [place] [address] 81663 Anion gap [Moles/Vol] 8 mmol/L Normal 5-15 [facility] Comment on above: Performed By: #### C BCA, CMP, , 5643-2 #### [facility] ([id number]) [address] [place] [address] 97704 AST [Catalytic activity/Vol] 24 U/L Normal 0-41 [facility] Comment on above: Performed By: #### C BCA, CMP, , 43-2 #### [facility] ([id number]) [address] [place] [address] 37766 Bilirubin [Mass/Vol] 1.0 mg/dL Normal 0.3-1.2 [facility] Comment on above: Performed By: #### C BCA, CMP, , 5643-2 #### [facility] ([id number]) [address] [place] [address] [place] [address] Calcium [Mass/Vol] 9.3 mg/dL Normal 8.5-10.5 [facility] Comment on above: Performed By: #### C SARAH ANDERSON, , 5642-2 #### [facility] ([id number]) [address] [place] [address] 54213 Chloride [Moles/Vol] 109 mmol/L Normal 98-109 [facility] Comment on above: Performed By: #### C SARAH ANDERSON, , 5642- #### [facility] ([id number]) [address] [place] [address] 20448 CO2 [Moles/Vol] 24 mmol/L Normal 22-32 [facility] Comment on above: Performed By: #### C SARAH ANDERSON, , 5642-11 #### [facility] ([id number]) [address] [place] [address] 42163 Creatinine [Mass/Vol] 0.81 mg/dL Normal 0.40-1.00 [facility] Comment on above: Result Comment: METH OD TRACEABLE TO IDMS STANDARD Performed By: #### C SARAH ANDERSON, , 5642-11 #### [facility] ([id number]) [address] [place] [address] 94132 eGFR (CKD-EPI) NON-RACE DEPENDENT >90 Normal >59 [facility] Comment on above: Result Comment: Reported eGFR is based on the CKD-EPI 2021 equation that does not use a race coefficient. Performed By: #### C SARAH ANDERSON, , 5642-2 #### [facility] ([id number]) [address] [place] [address] 20446 Glucose [Mass/Vol] 174 mg/dL High 65-99 [facility] Comment on above: Performed By: #### C SARAH ANDERSON, , 5642-2 #### [facility] ([id number]) [address] [place] [address] 85941 Potassium [Moles/Vol] 3.9 mmol/L Normal 3.5-5.0 [facility] Comment on above: Performed By: #### Aaron ANDERSON CMP, , 5643-2 #### [facility] ([id number]) [address] [place] [address] 85671 Protein [Mass/Vol] 7.9 g/dL Normal 6.0-8.0 [facility] Comment on above: Performed By: #### Aaron ANDERSON [facility], , 5643-2 #### [facility] ([id number]) [address] [place] [address] 64269 Sodium [Moles/Vol] 141 mmol/L Normal 134-146 [facility] Comment on above: Performed By: #### Aaron ANDERSON [facility], , 5643-2 #### [facility] ([id number]) [address] [place] [address] 21063 Urea nitrogen [Mass/Vol] 10 mg/dL Normal 5-23 [facility] Comment on above: Performed By: #### Aaron ANDRESON CMP, , 5643-2 #### [facility] ([id number]) [address] [place] [address] 46101 CRP [Mass/Vol]on 10-02-2023 C REACTIVE PROTEIN 1.0 mg/dL High 0.000-0.744 [facility] Comment on above: Performed By: #### Aaron ANDERSON CMP, , 5643-2 #### [facility] ([id number]) [address] [place] [address] BRAIN WO CONTon CT BRAIN WO CONT CT BRAIN WO CONT Examination: Noncontrast brain CT Date of Exam:10/01/2023 Clinical History:Fatigue confusion Comparison:None Procedure: Multi-detector CT performed through the brain without IV contrast. Automatic exposure control (AEC) was utilized. Findings: There is no intracranial hemorrhage, extra-axial fluid collection, mass effect, or hydrocephalus. Smith-white matter differentiation is appropriate. Infarcts may be occult on CT, but grossly no acute infarct identified There is no midline shift. IMPRESSION: 1. No acute findings. All CT scans at this facility use dose modulation, iterative reconstruction, and/or weight based dosing when appropriate to reduce radiation dose to as low as reasonably achievable. Finalized by Cleve Valentin MD on 10/01/2023 10:[address] [facility] FREE T4on 10-02-2023 Free T4 [Mass/Vol] 0.98 ng/dL Normal 0.61-1.60 [facility] Comment on above: Performed By: #### 1 0839-9, 67674-3, TSHR, 3024-7 ####[facility] ([id number])[address] [place] [address]#### 2132-9 ####[facility] ([id number])[address] [place] [address], [address] [place] [address] Glucose Glucometer (BldC) [M ass/Vol]on 10-02-2023 Glucose [Mass/Vol] 146 mg/dL High 65-99 [facility] Glucose [Mass/Vol] 127 mg/dL High 65-99 [facility] Glucose [Mass/Vol] 136 mg/dL High 65-99 [facility] Glucose [Mass/Vol] 114 mg/dL High 65-99 [facility] Glucose [Mass/Vol] 152 mg/dL High 65-99 [facility] Glucose [Mass/Vol] 188 mg/dL High 65-99 [facility] Glucose [Mass/Vol] 221 mg/dL High 65-99 [facility] HGB A1C (GLYCO-HGB)on 2022 Glucose [Mass/Vol] 194 mg/dL Normal [facility] Comment on above: Performed By: #### 1 0839-9, 32679-3, TSHR, 3024-7 ####[facility] ([id number])[address] [place] [address] 79297#### 2132-9 ####[facility] ([id number])[address], [address] [place] [address] 01642 HbA1c (Bld) [Mass fraction] 8.4 % High 4.4-5.6 [facility] Comment on above: Result Comment: NOTE ADA Guidelines Result HgbA1c Normal : less than 5.7 % Prediabetes : 5.7 % to 6.4 % Diabetes : > 6.4 % Use with caution in patients with abnormal hemoglobin variants as the half-life of red blood cells and in vivo glycation rates are affected. Performed By: #### 1 0839-9, 00581-2, TSHR, 3024-7 ####[facility] ([id number])[address] [place] [address] 24713#### 2132-9 ####[facility] ([id number])[address] [facility], [address] [place] [address] 02637 MAGNESIUMon 10-02-2023 Magnesium [Mass/Vol] 2.2 mg/dL Normal 1.8-2.6 [facility] Comment on above: Performed By: #### C BCA, CMP, 71497-8, 5643-2 #### [facility] ([id number]) [address] [place] [address] 53279 MR BRAIN W CONTon 10-02-2023 MR BRAIN W CONT MR BRAIN W CONT STUDY: MR BRAIN W CONT INDICATION: new onset seizure. TECHNIQUE: * Routine multiplanar multisequence MR imaging of the brain was performed with intravenous contrast. FINDINGS: Limited exam due to motion artifact. Limited postcontrast and coronal FLAIR sequences for the purpose of seizure evaluation given MR brain without contrast earlier this morning. Nonspecific FLAIR hyperintensity in the left anterior centrum semiovale extending to the left superior frontal gyrus (series 11, image 13 of 28). There may be equivocal enhancement which may reflect a developmental venous anomaly. Other etiologies such as transmantle sign of cortical dysplasia are considered less likely. No evidence of encephalocele is, mesial temporal sclerosis, heterotopic smith matter or enhancing cortical mass. IMPRESSION: * Limited exam due to motion artifact. 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 Correlation with semiology is recommended. * Please note the right parotid observation on the prior MRI is not well assessed due to motion. Finalized by Narinder Baez on 10/02/2023 6:[address] [facility] MR BRAIN WO CONTon 3 MR BRAIN WO CONT MR BRAIN WO CONT MRI brain: HISTORY: Altered mental status. Evaluate CVA. Multisequence multiplanar imaging of the brain was obtained utilizing the routine protocol. The diffusion-weighted images and corresponding ADC map show no focus of diffusion restriction or acute intracranial ischemia. There is no mass or midline shift. Basilar cisterns are patent. The sinuses are clear. Flow voids are normal in caliber and contour. White matter signal characteristics are unremarkable without evidence of significant chronic ischemia or demyelination. No susceptibility appreciated on gradient echo sequences. Cerebellar tonsils are normal position. Pituitary infundibulum is midline. There is a 1.3 cm nonspecific observation within the posterior aspect of the right parotid. Both benign and malignant processes could produce this appearance. Please correlate clinically. IMPRESSION: No acute intracranial findings. 1.3 cm nonspecific lesion posterior aspect of the right parotid, not fully evaluated with this exam. Please correlate clinically. Finalized by Loki Myers MD on 10/02/2023 7:[address] [facility] Procalcitonin IA [Mass/Vol]o n 10-02-2023 PROCALCITONIN <0.05 Normal <0.05 [facility] Comment on above: Result Comment: NOTE <0.50 ng/mL - Low risk of severe sepsis and/or septic shock. <2.00 ng/mL - Recommend retesting within 6-24 hours. >2.00 ng/mL - High risk of sepsis and/or septic shock. Performed By: #### 1 0839-9, 73929-9, TSHR, 3024-7 ####[facility] ([id number])[address] [place] [id number]#### 2131-9 ####[facility] ([id number])[facility] [facility], [address] [place] [id number] THYROID PROFILEon 10-02-2023 Free T4 [Mass/Vol] 1.19 ng/dL Normal 0.61-1.60 [facility] Comment on above: Performed By: #### C BCA, CMP, 21406-3, 5643-2 #### [facility] ([id number]) [address] [place] [id number] TSH 2.52 uIU/mL Normal 0.49-4.67 [facility] Comment on above: Performed By: #### C BCA, CMP, 17831-1, 5643-2 #### [facility] ([id number]) [address] [place] [address] 06616 TROPONIN Ion 10-02-2023 Troponin I.cardiac [Mass/Vol] ng/mL Normal 0.00-0.04 [facility] Comment on above: Performed By: #### 1 0839-9, 42048-5, TSHR, 3024-7 ####[facility] ([id number])[address] [place] [address] 855[address]#### 2131-9 ####[facility] ([id number])[address] [place] [address], [address] [place] [address]322 TSH WITH REFLEXon 10-02-2023 TSH 6.43 uIU/mL High 0.49-4.67 [facility] Comment on above: Performed By: #### 1 0839-9, 97578-4, TSHR, 3024-7 ####[facility] ([id number])[address] [place] [address] 83851#### 2132-9 ####[facility] ([id number])[address], [address] [place] [address] 13280 URIC ACIDon 10-02-2023 Urate [Mass/Vol] 3.5 mg/dL Normal 2.6-7.2 [facility] Comment on above: Performed By: #### C BCA, CMP, 74084-9, 5643-2 #### [facility] ([id number]) [address] [place] [address] 94189 VITAMIN B12on 10-02-2023 Cobalamin (Vitamin B12) [Mass/Vol] 313 pg/mL Normal 180-914 [facility] Comment on above: Performed By: #### 1 0839-9, 60811-4, TSHR, 3024-7 ####[facility] ([id number])[address] [place] [address] 19907#### 2-9 ####[facility] ([id number])[address] [facility], [address] [address] XR CHEST 1 VWon 10-02-2023 XR CHEST 1 VW XR CHEST 1 VW XR CHEST 1 VW HISTORY: Transient alteration of awareness, fatigue, possible aspiration. COMPARISON: 07/04/2023, 11/24/2022, 10/13/2021. FINDINGS: The cardiomediastinal silhouette is not enlarged. No pleural effusion or focal consolidation. Limited ability to detect pneumothorax on this semierect film. No discernible pneumothorax. IMPRESSION: No radiographically evident acute process. Approved by Resident Maximino Reeder MD on 10/02/2023 3:21 AM I, Brenda Hayes MD have personally reviewed the image(s) and agree with and/or edited the report Finalized by Brenda Hayes MD on 10/02/2023 4:[address] [facility] ACETAMINOPHENon 10-01-2023 Acetaminophen [Mass/Vol] ug/mL Low 10.0-30.0 [facility] Comment on above: Result Comment: Refe rence ranges are for therapeutic limits. Performed By: #### 3 298-7, 4024-6, 98652-0 #### [facility] ([id number]) [address] [place] [address] 31320 AMMONIAon 10-01-2023 Ammonia (P) [Moles/Vol] 30 umol/L Normal 11-35 [facility] Comment on above: Performed By: #### 3 298-7, 4024-6, 66388-3 ####[facility] ([id number])[address] [place] [address] 41415 CBC AND AUTO DIFFon 10-01-20 ABSOLUTE BASOPHIL 0.1 X10E9/L Normal 0.0-0.2 [facility] Comment on above: Performed By: #### C BCA, CMP, 00852-6, 5643-2 #### [facility] ([id number]) [address] [place] [address] 05550 ABSOLUTE NEUTROPHIL 9.1 X10E9/L High 1.5-6.6 [facility] Comment on above: Performed By: #### C BCA, CMP, , 5643-2 #### [facility] ([id number]) [address] [place] [address] 14415 Basophils/100 WBC (Bld) 0.6 % Normal [facility] Comment on above: Performed By: #### C BCA, CMP, , 5643-2 #### [facility] ([id number]) [address] [place] [address] 10796 Eosinophils (Bld) [#/Vol] 0.1 10*3/uL Normal 0.0-0.4 [facility] Comment on above: Performed By: #### C BCA, CMP, , 56- #### [facility] ([id number]) [address] [place] [address] 76045 Eosinophils/100 WBC (Bld) 1.1 % Normal [facility] Comment on above: Performed By: #### C JUSTIN [facility], , 5642- #### [facility] ([id number]) [address] [place] [address] 55837 Erythrocyte distribution width (RBC) [Ratio] 13.6 % Normal 11.5-15.0 [facility] Comment on above: Performed By: #### C JUSTIN [facility], , 5642- #### [facility] ([id number]) [address] [place] [address] 55049 Hematocrit (Bld) [Volume fraction] 43.2 % Normal 35-47 [facility] Comment on above: Performed By: #### C JUSTIN [facility], , 5642- #### [facility] ([id number]) [address] [place] [address] 37505 Hemoglobin (Bld) [Mass/Vol] 14.5 g/dL Normal 11.7-15.5 [facility] Comment on above: Performed By: #### C SARAH ANDERSON, , 5642- #### [facility] ([id number]) [address] [place] [address] 47282 Lymphocytes (Bld) [#/Vol] 2.4 10*3/uL Normal 1.0-3.5 [facility] Comment on above: Performed By: #### C JUSTIN, CMP, , 5642-2 #### [facility] ([id number]) [address] [place] [address] 19351 Lymphocytes/100 WBC (Bld) 18.7 % Normal [facility] Comment on above: Performed By: #### C BCA, CMP, , 5642- #### [facility] ([id number]) [address] [place] [address] 21473 MCH (RBC) [Entitic mass] 28.8 pg Normal 27-34 [facility] Comment on above: Performed By: #### Aaron BCA, CMP, , 5642-2 #### [facility] ([id number]) [address] [place] [address] 21581 MCHC (RBC) [Mass/Vol] 33.5 g/dL Normal 32-36 [facility] Comment on above: Performed By: #### Aaron ANDERSON, CMP, , 5642- #### [facility] ([id number]) [address] [place] [address] 81753 MCV (RBC) [Entitic vol] 86 fL Normal 80-100 [facility] Comment on above: Performed By: #### Aaron BCA, CMP, , 5642- #### [facility] ([id number]) [address] [place] [address] 76804 Monocytes (Bld) [#/Vol] 1.0 10*3/uL High 0-0.9 [facility] Comment on above: Performed By: #### Aaron BCA, CMP, , 5642- #### [facility] ([id number]) [address] [place] [address] 98759 Monocytes/100 WBC (Bld) 7.5 % Normal [facility] Comment on above: Performed By: #### Aaron BCA, CMP, , 5642- #### [facility] ([id number]) [address] [place] [address] 08463 Neutrophils/100 WBC (Bld) 72.1 % Normal [facility] Comment on above: Performed By: #### C BCA, CMP, , 5643-2 #### [facility] ([id number]) [address] [place] [address] 72285 Platelet mean volume (Bld) [Entitic vol] 7.5 fL Normal 7-12 [facility] Comment on above: Performed By: #### C BCA, CMP, , 5643-2 #### [facility] ([id number]) [address] [place] [address] 88899 Platelets (Bld) [#/Vol] 510 10*3/uL High 150-450 [facility] Comment on above: Performed By: #### Aaron ANDERSON, CMP, , 5643-2 #### [facility] ([id number]) [address] [place] [address] 02679 RBC COUNT 5.02 X10E12/L Normal 3.80-5.20 [facility] Comment on above: Performed By: #### Aaron ANDERSON, CMP, , 5643-2 #### [facility] ([id number]) [address] [place] [address] 02779 WBC (Bld) [#/Vol] 12.6 10*3/uL High 4.0-11.0 [facility] Comment on above: Performed By: #### Aaron ANDERSON, CMP, , 5643-2 #### [facility] ([id number]) [address] [place] [address] 19560 COMPREHENSIVE METABOLIC PANE Artur 10-01-2023 Albumin [Mass/Vol] 4.8 g/dL Normal 3.2-5.3 [facility] Comment on above: Performed By: #### Aaron BCA, CMP, , 5643-2 #### [facility] ([id number]) [address] [place] [address] 27878 ALP [Catalytic activity/Vol] 101 U/L Normal 39-130 [facility] Comment on above: Performed By: #### C BCA, CMP, , 5643-2 #### [facility] ([id number]) [address] [place] [address] 45576 ALT [Catalytic activity/Vol] 17 U/L Normal 0-31 [facility] Comment on above: Performed By: #### C BCA, CMP, , 43-2 #### [facility] ([id number]) [address] [place] [address] 35000 Anion gap [Moles/Vol] 6 mmol/L Normal 5-15 [facility] Comment on above: Performed By: #### Aaron ANDERSON, CMP, , 43-2 #### [facility] ([id number]) [address] [place] [address] 70059 AST [Catalytic activity/Vol] 18 U/L Normal 0-41 [facility] Comment on above: Performed By: #### C JUSTIN, CMP, , 5643-2 #### [facility] ([id number]) [address] [place] [address] 53436 Bilirubin [Mass/Vol] 0.4 mg/dL Normal 0.3-1.2 [facility] Comment on above: Performed By: #### C BCA, CMP, , 5643-2 #### [facility] ([id number]) [address] [place] [address] 77054 Calcium [Mass/Vol] 9.2 mg/dL Normal 8.5-10.5 [facility] Comment on above: Performed By: #### C BCA, CMP, , 5643-2 #### [facility] ([id number]) [address] [place] [address] 44856 Chloride [Moles/Vol] 104 mmol/L Normal 98-109 [facility] Comment on above: Performed By: #### C SARAH ANDERSON, , 5643-2 #### [facility] ([id number]) [address] [place] [address] 07045 CO2 [Moles/Vol] 26 mmol/L Normal 22-32 [facility] Comment on above: Performed By: #### C SARAH ANDERSON, , 5642- #### [facility] ([id number]) [address] [place] [address] 35503 Creatinine [Mass/Vol] 0.88 mg/dL Normal 0.40-1.00 [facility] Comment on above: Result Comment: METH OD TRACEABLE TO IDMS STANDARD Performed By: #### C SARAH ANDERSON, , 5642-11 #### [facility] ([id number]) [address] [place] [address] 48950 GFR/1.73 sq M.predicted among non-blacks MDRD (S/P/Bld) [Vol rate/Area] 84 mL/min/{1.73_m2} Normal >59 [facility] Comment on above: Result Comment: Reported eGFR is based on the CKD-EPI 2020 equation that does not use a race coefficient. Performed By: #### C SARAH ANDERSON, , 5642- #### [facility] ([id number]) [address] [place] [address] 29228 Glucose [Mass/Vol] 247 mg/dL High 65-99 [facility] Comment on above: Performed By: #### C ASRAH ANDERSON, , 56-2 #### [facility] ([id number]) [address] [place] [address] 32918 Potassium [Moles/Vol] 4.0 mmol/L Normal 3.5-5.0 [facility] Comment on above: Performed By: #### C SARAH ANDERSON, , 5642-2 #### [facility] ([id number]) [address] [place] [address] 27921 Protein [Mass/Vol] 8.2 g/dL High 6.0-8.0 [facility] Comment on above: Performed By: #### C BCA, CMP, 82662-4, 5643-2 #### [facility] ([id number]) [address] [place] [address] 78453 Sodium [Moles/Vol] 136 mmol/L Normal 134-146 [facility] Comment on above: Performed By: #### C BCA, CMP, 18229-6, 5643-2 #### [facility] ([id number]) [address] [place] [address] 23790 Urea nitrogen [Mass/Vol] 12 mg/dL Normal 5-23 [facility] Comment on above: Performed By: #### C BCA, CMP, , 5643-2 #### [facility] ([id number]) [address] [place] [address] 84035 DRUG SCREEN, URINEon 023 AMPHETAMINE/METHAMP Negative Normal NEG [facility] Comment on above: Result Comment: AMPH /METH screening cut off = 1000 ng/mL Performed By: #### D STEELE #### [facility] ([id number]) [address] [place] [address] 51380 BARBITURATES Negative Normal NEG [facility] Comment on above: Result Comment: Kelsi iturates screening cut off value = 200 ng/mL Performed By: #### D STEELE #### [facility] ([id number]) [address] [place] [address] 30368 BENZODIAZEPINES Negative Normal NEG [facility] Comment on above: Result Comment: Simeon odiazepines screening cut off value = 200 ng/mL Performed By: #### D STEELE #### [facility] ([id number]) [address] [place] [address], [place] [address] CANNABINOIDS Negative Normal NEG [facility] Comment on above: Result Comment: Carlos abinoids/THC screening cut off value = 50 ng/mL Performed By: #### D STEELE #### [facility] ([id number]) [address] [place] [address] 67104 COCAINE METABOLITE Negative Normal NEG [facility] Comment on above: Result Comment: Coca ine screening cut off value = 300 ng/mL Performed By: #### D STEELE #### [facility] ([id number]) [address] [place] [address] 61226 ECSTASY Negative Normal [facility] Comment on above: Result Comment: Ecst asy screening cut off value = 500 ng/mL This report is intended for use in clinical monitoring or management of patients. Performed By: #### D STEELE #### [facility] ([id number]) [address] [place] [address] 17544 METHADONE Negative Normal [facility] Comment on above: Result Comment: Meth adone screening cut off value = 300 ng/mL. Performed By: #### D STEELE #### [facility] ([id number]) [address] [place] [address] 19349 OPIATES Negative Normal [facility] Comment on above: Result Comment: Opia chu screening cut off value = 300 ng/mL NOTE: This test is used for the detection of codeine, hydrocodone (>1000 ng/mL), morphine and hydromorphone (>900 ng/mL) in urine. Performed By: #### D STEELE #### [facility] ([id number]) [address] [place] [address] 31902 OXYCODONE Negative Normal NEG [facility] Comment on above: Result Comment: Oxyc odone screening cut off value = 300 ng/mL NOTE: This test is used for the detection of oxycodone and oxymorphone in urine. Performed By: #### D STEELE #### [facility] ([id number]) [address] [place] [address] 03031 PHENCYCLIDINE Negative Normal NEG [facility] Comment on above: Result Comment: Phen cyclidine screening cut off value = 25 ng/mL Performed By: #### D STEELE #### [facility] ([id number]) [address] [place] [address] 03074 ETHANOLon 10-01-2023 Ethanol [Mass/Vol] mg/dL Normal 0.00-0.08 [facility] Comment on above: Result Comment: This report is intended for use in clinical monitoring or management of patients. Performed By: #### C SARAH ANDERSON, 94234-8, 5643-2 #### [facility] ([id number]) [address] [place] [address] 49459 Glucose Glucometer (BldC) [M ass/Vol]on 10-01-2023 Glucose [Mass/Vol] 237 mg/dL High 65-99 [facility] MAGNESIUMon 10-01-2023 Magnesium [Mass/Vol] 2.1 mg/dL Normal 1.8-2.6 [facility] Comment on above: Performed By: #### C SARAH ANDERSON, 12988-4, 5643-2 #### [facility] ([id number]) [address] [place] [address] 96842 Salicylates [Mass/Vol]on SALICYLATE <4.0 Normal 2.0-25.0 [facility] Comment on above: Result Comment: Refe rence ranges are for therapeutic limits. Performed By: #### 3 298-7, 4024-6, 56037-6 #### [facility] ([id number]) [address] [place] [address] 46630 URN MACROSCOPIC NURon 2022 BILIRUBIN SAMMY Negative Normal NEG [facility] Comment on above: Performed By: #### N UM #### [facility] ([id number]) [address] [place] [address] [place] [address] BLOOD/HGB SAMMY Negative Normal NEG [facility] Comment on above: Performed By: #### N UM #### [facility] ([id number]) [address] [place] [address], [place] [address] GLUCOSE SAMMY 500 mg/dL Abnormal NEG [facility] Comment on above: Performed By: #### N UM #### [facility] ([id number]) [address] [place] [address], [place] [address] KETONES SAMMY Negative Normal NEG [facility] Comment on above: Performed By: #### N UM #### [facility] ([id number]) [address] [place] [address] [place] [address] LEUKOCYTE ESTERASE SAMMY Negative Normal NEG [facility] Comment on above: Performed By: #### N UM #### [facility] ([id number]) [address] [place] [address], [place] [address] NITRITE SAMMY Negative Normal NEG [facility] Comment on above: Performed By: #### N UM #### [facility] ([id number]) [address] [place] [address], [place] [address] PH SAMMY 7.0 Normal 5.0-8.5 [facility] Comment on above: Performed By: #### N UM #### [facility] ([id number]) [address] [place] [address] [place] [address] PROTEIN SAMMY Negative Normal NEG [facility] Comment on above: Performed By: #### N UM #### [facility] ([id number]) [address] [place] [address], [place] [address] SPECIFIC GRAVITY SAMMY 1.010 Normal 1.003-1.035 [facility] Comment on above: Performed By: #### N UM #### [facility] ([id number]) [address] [place] [address] UROBILINOGEN SAMMY 0.2 eu/dL Normal <1.1 [facility] Comment on above: Performed By: #### N UM #### [facility] ([id number]) [address] [place] [address] 47736 XR SHOULDER LT MIN 2 VWSon 1 11-25-2022 XR SHOULDER LT MIN 2 VWS XR SHOULDER LT MIN 2 VWS History: Pain. No known injury Study: Left Shoulder Three view study. Comparison: None Impression: No acute abnormality in the left shoulder.Surgical anchors are appreciated in the greater tuberosity and humeral head. No fracture or dislocation is appreciated. No chondrocalcinosis. Finalized by Leela Johnson MD on 09/24/2023 10:[address] [facility] HERPES SIMPLEX VIRUS (HSV) C ULTUREon 08-26-2021 HSV Culture/Type Comment Abnormal [facility] Comment on above: Result Comment: Posi tive for Herpes simplex virus type-2. Typing was confirmed by monoclonal antibody microscopic immunofluorescence. Performed By: #### H SVCUL #### [facility] [address] [address] [address] Gianfranco Orta AMYLASEon 08-21-2021 AMYL <30 Critically low 31-110 [facility] Comment on above: Performed By: #### A MY LIPA #### [facility] [address] [address] [address] Gianfranco Orta CBC AUTO DIFFon 08-21-2021 BASO # 0.1 103/ul Normal 0.0-0.1 [facility] Comment on above: Performed By: #### C BC #### [facility] [address] [address] [address] Gianfranco Orta Basophils/100 WBC (Bld) 0.5 % Normal 0.2-2.0 [facility] Comment on above: Performed By: #### C BC #### [facility] [address] [address] [address] Gianfranco Orta EO # 0.2 103/ul Normal 0.0-0.7 [facility] Comment on above: Performed By: #### C BC #### [facility] [address] [address] [address] Gianfranco Orta Eosinophils/100 WBC (Bld) 2.3 % Normal 0.9-7.0 [facility] Comment on above: Performed By: #### C BC #### [facility] [address] [place] [address] Dr. Gianfranco Orta Erythrocyte distribution width (RBC) [Ratio] 16.1 % Critically high 11.0-15.0 [facility] Comment on above: Performed By: #### C BC #### [facility] [address] [place] [address] Dr. Gianfranco Orta Hematocrit (Bld) [Volume fraction] 35.3 % Critically low 36.0-48.0 [facility] Comment on above: Performed By: #### C BC #### [facility] [address] [place] [address] Dr. Gianfranco Orta Hemoglobin (Bld) [Mass/Vol] 11.3 g/dL Critically low 12.0-16.0 [facility] Comment on above: Performed By: #### C BC #### [facility] [address] [place] [address] Dr. Gianfranco Orta IG # 0.07 10e3/ul Critically high 0.00-0.03 [facility] Comment on above: Performed By: #### C BC #### [facility] [address] [place] [address] Dr. Gianfranco Orta IG % 0.7 % Critically high 0.0-0.5 [facility] Comment on above: Performed By: #### C BC #### [facility] [address] [place] [address] Dr. Gianfranco Orta LYMPH # 2.6 103/ul Normal 1.2-3.8 [facility] Comment on above: Performed By: #### C BC #### [facility] [address] [place] [address] Dr. Gianfranco Orta Lymphocytes/100 WBC (Bld) 26.7 % Normal 20.5-60.0 [facility] Comment on above: Performed By: #### C BC #### [facility] [address] [place] [address] Dr. Gianfranco Orta MANUAL DIFF REQ NO Normal [facility] Comment on above: Performed By: #### C BC #### [facility] [address] [place] [address] Dr. Gianfranco Orta MCH (RBC) [Entitic mass] 26.1 pg Critically low 26.7-34.0 [facility] Comment on above: Performed By: #### C BC #### [facility] [address] [place] [address] Dr. Gianfranco Orta MCHC (RBC) [Mass/Vol] 32.0 g/dL Normal 29.9-35.2 [facility] Comment on above: Performed By: #### C BC #### [facility] [address] [place] [address] Dr. Gianfranco Orta MCV (RBC) [Entitic vol] 81.5 fL Normal 81.0-99.0 [facility] Comment on above: Performed By: #### C BC #### [facility] [address] [place] [address] Dr. Gianfranco Orta MONO # 0.5 103/ul Normal 0.3-0.8 [facility] Comment on above: Performed By: #### C BC #### [facility] [address] [place] [address] Dr. Gianfrnaco Orta Monocytes/100 WBC (Bld) 5.2 % Normal 1.7-12.0 [facility] Comment on above: Performed By: #### C BC #### [facility] [address] [place] [address] Dr. Gianfranco Orta NEUT # 6.4 103/ul Normal 1.4-6.5 [facility] Comment on above: Performed By: #### C BC #### [facility] [address] [place] [address] Dr. Gianfranco Orta Neutrophils/100 WBC (Bld) 64.6 % Normal 43.0-75.0 [facility] Comment on above: Performed By: #### C BC #### [facility] [address] [place] [address] Dr. Gianfranco Orta Platelet mean volume (Bld) [Entitic vol] 10.8 fL Normal 9.5-13.5 [facility] Comment on above: Performed By: #### C BC #### [facility] [address] [place] [address] Dr. Gianfranco Orta PLT 322 103/ul Normal 150-450 [facility] Comment on above: Performed By: #### C BC #### [facility] [address] [place] [address] Dr. Gianfranco Orta RBC 4.33 106/ul Normal 4.20-5.40 [facility] Comment on above: Performed By: #### C BC #### [facility] [address] [place] [address] Dr. Gianfranco Orta WBC 9.9 103/ul Normal 4.0-11.0 [facility] Comment on above: Performed By: #### C BC #### [facility] [address] [place] [address] Dr. Gianfranco Orta CULTURE URINEon 08-21-2021 CULTURE URINE Culture Observations : LIGHT GROWTH OF MIXED GENITAL ROSANNE. NO POTENTIAL PATHOGENS SEEN. Normal [facility] Comment on above: Performed By: #### U RCX #### [facility] [address] [place] [address] Dr. Gianfranco Orta ER URINE PROFILEon Bilirubin Ql (U) Negative Normal NEGATIVE [facility] [place] Comment on above: Performed By: #### U MICRO, ERUR #### [facility] [address] [place] [address] Dr. Gianfranco Orta Clarity (U) CLEAR Normal CLEAR [facility] Comment on above: Performed By: #### U MICRO, ERUR #### [facility] [address] [place] [address] Dr. Gianfranco Orta Color (U) YELLOW Normal YELLOW [facility] Comment on above: Performed By: #### U MICRO, ERUR #### [facility] [address] [address] [address] Gianfranco MEDINA A micrscopic examination will be performed if indicated. Normal [facility] Comment on above: Performed By: #### U MICRO, ERUR #### [facility] [address] [address] [address] Gianfranco Orta Glucose Ql (U) 1000 mg/dl Abnormal NEGATIVE [facility] Comment on above: Performed By: #### U MICRO, ERUR #### [facility] [address] [address] [address] Gianfranco Orta Hemoglobin Ql (U) TRACE-INTACT Abnormal NEGATIVE [facility] Comment on above: Performed By: #### U MICRO, ERUR #### [facility] [address] [place] [address] Dr. Gianfranco Orta Ketones Ql (U) TRACE Abnormal NEGATIVE [facility] Comment on above: Performed By: #### U MICRO, ERUR #### [facility] [address] [place] [address] Dr. Gianfranco Orta LEUKOCYTES Negative Normal NEGATIVE [facility] Comment on above: Performed By: #### U MICRO, ERUR #### [facility] [address] [address] [address] Gianfranco Orta Nitrite Ql (U) Negative Normal NEGATIVE [facility] Comment on above: Performed By: #### U MICRO, ERUR #### [facility] [address] [place] [address] Dr. Gianfranco Orta pH (U) 6.0 [pH] Normal 5-9 [facility] Comment on above: Performed By: #### U MICRO, ERUR #### [facility] [address] [place] [address] Dr. Gianfranco Orta SPEC GRAVITY 1.010 Normal 1.005-<=1.025 [facility] Comment on above: Performed By: #### U MICRO, ERUR #### [facility] [address] [place] [address] Dr. Gianfranco Orta UA PROTEIN TRACE Normal NEGATIVE/ TRACE [facility] Comment on above: Performed By: #### U MICRO, ERUR #### [facility] [address] [place] [address] Dr. Gianfranco Orta UR MICRO IND INDICATED Normal [facility] Comment on above: Performed By: #### U MICRO, ERUR #### [facility] [address] [place] [address] Dr. Gianfranco Orta Urobilinogen Qn (U) 1.0 {Gabriela'U}/dL Normal 0.2 - 1. 0 [facility] Comment on above: Performed By: #### U MICRO, ERUR #### [facility] [address] [place] [address] Dr. Gianfranco Orta LIPASEon 08-21-2021 Lipase [Catalytic activity/Vol] 210.0 U/L Normal 23.0-300.0 [facility] Comment on above: Performed By: #### A MY, LIPA #### [facility] [address] [place] [address] Dr. Gianfranco Orta PREG HCG QUALon 08-21-2021 , QUAL Negative Normal NEGATIVE [facility] Comment on above: Performed By: #### P REG #### [facility] [address] [place] [address] Dr. Gianfranco Orta PROF 14(COMP METB)on 021 Albumin [Mass/Vol] 2.9 g/dL Critically low 3.5-5.0 [facility] Comment on above: Performed By: #### C MP #### [facility] [address] [place] [address] Dr. Gianfranco Orta Albumin/Globulin [Mass ratio] 0.7 {ratio} Normal [facility] Comment on above: Performed By: #### C MP #### [facility] [address] [place] [address] Dr. Gianfranco Orta ALP [Catalytic activity/Vol] 136 U/L Critically high 38-126 [facility] Comment on above: Performed By: #### C MP #### [facility] [address] [place] [address] Dr. Gianfranco Orta ALT [Catalytic activity/Vol] 384 U/L Critically high 9-52 [facility] Comment on above: Performed By: #### C MP #### [facility] [address] [address] [address] Gianfranco Orta Anion gap [Moles/Vol] 12.7 mmol/L Normal [facility] Comment on above: Performed By: #### C MP #### [facility] [address] [address] [address] Gianfranco Orta AST [Catalytic activity/Vol] 32 U/L Normal 14-36 [facility] Comment on above: Performed By: #### C MP #### [facility] [address] [address] [address] Gianfranco Orta Bilirubin [Mass/Vol] 0.5 mg/dL Normal 0.2-1.3 [facility] Comment on above: Performed By: #### C MP #### [facility] [address] [place] [address] Dr. Gianfranco Orta Calcium [Mass/Vol] 8.6 mg/dL Normal 8.4-10.2 [facility] Comment on above: Performed By: #### C MP #### [facility] [address] [address] [address] Gianfranco Orta Chloride [Moles/Vol] 100 mmol/L Normal 98-107 [facility] Comment on above: Performed By: #### C MP #### [facility] [address] [address] [address] Gianfranco Orta CO2 [Moles/Vol] 26.1 mmol/L Normal 22.0-30.0 [facility] [place] Comment on above: Performed By: #### C MP #### [facility] [address] [address] [address] Gianfranco Orta Creatinine [Mass/Vol] 0.74 mg/dL Normal 0.52-1.04 [facility] Comment on above: Performed By: #### C MP #### [facility] [address] [address] [address] Gianfranco Orta EGFR-AF [place] >60 Normal >=60 [facility] [place] Comment on above: Performed By: #### C MP #### [facility] [address] [place] [address] Dr. Gianfranco Orta EGFR-NON AF [place] >60 Normal >=60 [facility] Comment on above: Performed By: #### C MP #### [facility] [address] [place] [address] Dr. Gianfranco Orta Globulin (S) [Mass/Vol] 4.0 g/dL Normal [facility] Comment on above: Performed By: #### C MP #### [facility] [address] [address] [address] Gianfranco Orta Glucose [Mass/Vol] 365 mg/dL Critically high 74-106 T [facility] Comment on above: Performed By: #### C MP #### [facility] [address] [place] [address] Dr. Gianfranco Orta Potassium [Moles/Vol] 3.8 mmol/L Normal 3.4-5.0 [facility] Comment on above: Performed By: #### C MP #### [facility] [address] [place] [address] Dr. Gianfranco Orta Protein [Mass/Vol] 6.9 g/dL Normal 6.1-8.2 [facility] Comment on above: Performed By: #### C MP #### [facility] [address] [place] [address] Dr. Gianfranco Orta Sodium [Moles/Vol] 135 mmol/L Critically low 137-145 [facility] Comment on above: Performed By: #### C MP #### [facility] [address] [place] [address] Dr. Gianfranco Orta Urea nitrogen [Mass/Vol] 7.0 mg/dL Normal 7.0-17.0 [facility] Comment on above: Performed By: #### C MP #### [facility] [address] [place] [address] Dr. Gianfranco Orta Urea nitrogen/Creatinine [Mass ratio] 9.5 mg/mg Normal [facility] Comment on above: Performed By: #### C MP #### [facility] [address] [place] [address] Dr. Gianfranco Orta URINE MICROSCOPIC ONLYon BACTERIA SMALL Abnormal NONE SEEN [facility] Comment on above: Performed By: #### U MICRO, ERUR #### [facility] [address] [address] [address] Gianfranco Orta Bacteria identified Cx Nom (U) INDICATED Normal [facility] Comment on above: Performed By: #### U MICRO, ERUR #### [facility] [address] [place] [address] Dr. Gianfranco Orta CAST NONE SEEN Normal NONE SEEN [facility] Comment on above: Performed By: #### U MICRO, ERUR #### [facility] [address] [address] [address] Gianfranco Orta Crystals LM Nom (Urine sed) NONE SEEN Normal NONE SEEN [facility] Comment on above: Performed By: #### U MICRO, ERUR #### [facility] [address] [place] [address] Dr. Gianfranco Orta Epithelial cells LM Ql (Urine sed) FEW Abnormal NONE SEEN /RARE [facility] Comment on above: Performed By: #### U MICRO, ERUR #### [facility] [address] [address] [address] Gianfranco Orta MUCOUS NONE SEEN Normal NONE SEEN [facility] Comment on above: Performed By: #### U MICRO, ERUR #### [facility] [address] [place] [address] Dr. Gianfranco Orta RBC 5-10 Abnormal 0-2 [facility] Comment on above: Performed By: #### U MICRO, ERUR #### [facility] [address] [place] [address] Dr. Gianfranco Orta WBC 0-2 Abnormal NONE SEEN [facility] Comment on above: Performed By: #### U MICRO, ERUR #### [facility] [address] [place] [address] Dr. Gianfranco Orta XR HAND RIGHT (MIN 3 VIEWS)o n 03-19-2018 XR HAND RIGHT (MIN 3 VIEWS) REPORT: 3 views right hand and 3 views right wrist INDICATION: Pain status post injury FINDINGS: No acute fracture or dislocation is seen. Carpal rows are aligned. Early degenerative changes of the 1st CMC/STT articulation and IP joints. No soft tissue swelling. Final report electronically signed by Chikis Somers on 03/19/2018 12:39 PM IMPRESSION: NO ACUTE FRACTURE Interpreted by: Chikis Somers MD Signed by: Chikis Somers MD 03/19/18 Final result Normal [facility] XR WRIST RIGHT (MIN 3 VIEWS) on 03-19-2018 XR WRIST RIGHT (MIN 3 VIEWS) REPORT: 3 views right hand and 3 views right wrist INDICATION: Pain status post injury FINDINGS: No acute fracture or dislocation is seen. Carpal rows are aligned. Early degenerative changes of the 1st CMC/STT articulation and IP joints. No soft tissue swelling. Final report electronically signed by Chikis Somers on 03/19/2018 12:39 PM IMPRESSION: NO ACUTE FRACTURE Interpreted by: Chikis Somers MD Signed by: Chikis Somers MD 03/19/18 Final result Normal [facility] Vital Signs Date Time Vital Sign Value Performing Clinician Collin melo 11-27-2023 09:05-0500 Body height 157.5 cm Juan Franco PA-C [facility] 11-27-2023 09:05-0500 Body mass index (BMI) [Ratio] 28.17 kg/m2 Juan [facility]-C [facility] 11-27-2023 09:05-0500 Body weight 69.85 kg Juan Franco PA-C [facility] 11-27-2023 09:05-0500 Diastolic blood pressure 64 mm[Hg] Juan [facility]-C [facility] 11-27-2023 09:05-0500 Heart rate 90 /min Juan Franco PA-C [facility] 11-27-2023 09:05-0500 Systolic blood pressure 114 mm[Hg] Juan Franco PA-C [facility] 11-16-2023 11:20-0500 Body height 157.5 cm Juve Garrett DO Work Phone: [facility] 11-16-2023 11:20-0500 Body mass index (BMI) [Ratio] 28.17 kg/m2 Juve Garrett DO Work Phone: [facility] 11-16-2023 11:20-0500 Body weight 69.85 kg Juve Garrett DO Work Phone: [facility] Encounters Encounter Date Encounter Type Care Provider Facility Start: 02-11-2024 End: 02-11-2024 ambulatory SUSAN LESTER Not Available Start: 02-01-2024 End: 02-01-2024 ambulatory GERARDO J XAVIER Not Available Start: 01-30-2024 End: 01-30-2024 ambulatory GERARDO J XAVIER Not Available Start: 01-25-2024 End: 01-25-2024 ambulatory GERARDO J XAVIER Not Available Start: 01-23-2024 End: 01-23-2024 ambulatory ANGIE YOUNGBLOOD Not Available Start: 01-18-2024 End: 01-18-2024 ambulatory GERARDO J XAVIER Not Available Start: 01-16-2024 End: 01-16-2024 ambulatory LEXY PASCUAL Not Available Start: 01-15-2024 End: 01-15-2024 ambulatory JANETH RODRIGUEZ Not Available Start: 01-11-2024 End: 01-11-2024 ambulatory GERARDO J XAVIER Not Available Start: 01-08-2024 End: 01-08-2024 ambulatory GERARDO J XAVIER Not Available Start: 01-04-2024 End: 01-04-2024 ambulatory GERARDO J XAVIER Not Available Start: 01-01-2024 End: 01-01-2024 ambulatory GERARDO J XAVIER Not Available Start: 01-01-2024 End: 01-01-2024 ambulatory MATTHEW GIRON Not Available Start: 12-04-2023 End: 12-04-2023 ambulatory MATTHEW GIRON Not Available Start: 11-27-2023 End: 11-27-2023 ambulatory JUAN Walker [facility] Start: 11-27-2023 End: 11-27-2023 Office outpatient visit 25 minutes Juan Franco PANaty [facility] Comment on above: Altered mental statu s, unspecified altered mental status type (Primary Dx); Other cerebral palsy ([facility]); Anxiety and depression; Bipolar affective disorder, remission status unspecified ([facility]) Start: 11-23-2023 End: 11-23-2023 Emergency department patient visit [facility] Start: 11-21-2023 End: 11-21-2023 Emergency department patient visit [facility] Start: 11-19-2023 Chart abstracting Gerardo Sullivan gs PT Work Phone: [facility] Start: 11-16-2023 Bamboo flowsheet Juve S Bieden bach DO Work Phone: [facility] Start: 11-16-2023 Bamboo flowsheet Juve S Bieden bach DO Work Phone: [facility] Start: 11-16-2023 End: 11-16-2023 ambulatory JUVE GARRETT Not Available Start: 11-16-2023 End: 11-16-2023 Office outpatient new 45 minutes Juve S Biedjuventino DO Work Phone: [facility] Comment on above: Parotid mass (Primar y Dx); Tobacco abuse; Hearing loss, unspecified hearing loss type, unspecified laterality Start: 11-06-2023 End: 11-07-2023 ambulatory MATTHEW GIRON Not Available Start: 11-04-2023 End: 11-04-2023 Emergency department patient visit [facility] Start: 10-17-2023 Telephone encounter Reema Amaya [facility] Comment on above: Neurology Referral Start: 10-02-2023 End: 10-04-[address] [facility] Start: 10-02-2023 End: 10-04-[address] [facility] Start: 10-02-2023 End: 10-04-2023 ambulatory VICKY Quinn [facility] Start: 10-01-2023 End: 10-04-[address] [facility] Start: 10-01-2023 End: 10-04-2023 Emergency department patient visit [facility]SCAR WALLS [facility] Start: 09-24-2023 End: 09-25-2023 Emergency department patient visit [facility]SCAR W[facility] Start: 09-11-2023 End: 09-11-2023 ambulatory MATTHEW GIRON Not Available Start: 12-06-2022 ambulatory Solo Navarrete Facility:[facility] Start: 08-21-2021 End: 08-21-[address] DIANELYS MARTINEZ Facility:[facility] Start: 03-09-2019 [facility] Start: 09-21-2018 End: 09-21-2018 Emergency department patient visit BRENDA Delvalle WEI [facility] Start: 03-19-2018 End: 03-19-2018 Emergency department patient visit ROWAN Lewis CASANOVA [facility] Procedures Date Procedure Procedure Detail Performing Clinician Start: 11-27-2023 Adult depression scr eening assessment Juan Franco PA-C Work Phone: Start: 04-19-2023 Microscopic observat ion [Identifier] in Cervix by Cyto stain Reema Amaya Start: 04-22-2019 Microalbumin [Mass/v olume] in Urine by Test strip Reema Amyaa Start: 03-19-2018 VELCRO WRIST SPLINT BRA DY CASANOVA Start: 03-19-2018 Radex wrist complete minimum 3 views ROWAN CASANOVA Start: 03-19-2018 Radex hand minimum 3 views ROWAN JOCELYNE Plan of Treatment Date Care Activity Detail Author Start: 10-24-2031 DTaP,Tdap and Td Vaccines (3 - Td or Tdap) DTaP,Tdap and Td Vaccines (3 - Td or Tdap) [facility] Start: 04-19-2026 Screening for malignant neoplasm of cervix Pap Smear [facility] Start: 11-27-2024 Adult BMI Screening Adult BMI Screen ing [facility] Start: 11-27-2024 [facility] Start: 11-27-2024 Tobacco Screening Tobacco Screening [facility] Start: 11-03-2024 Adult BMI Screening Adult BMI Screen ing [facility] Start: 11-03-2024 Tobacco Screening Tobacco Screening [facility] Start: 06-12-2024 End: 06-12-2024 Patient encounter procedure 06/12/2024 9:15 AM EDT Office Visit Leelee Meier [facility] Oncology [address] [place] [phone] You Patel MD [address] [facility] [address] [place] [address] Leelee Delval[place] [facility] On[facility] Start: 06-12-2024 End: 06-12-2024 ambulatory 06/12/2024 8:50 AM EDT Support Visit Leelee Meier [facility] Medical Oncology [address] [place] [phone] Leelee Delvalle [place] [facility] Start: 05-23-2024 End: 05-23-2024 Patient encounter procedure 05/23/2024 1:00 PM EDT Office Visit [facility] [address] [place] [phone] Juve Garrett DO [address] [place] [address] [facility] Start: 01-29-2024 End: 01-29-2024 Patient encounter procedure 01/29/2024 9:30 AM EDT Office Visit [facility] [address] [place] [phone] Juan Franco, PAAndreyC [address] [place] [phone] [facility] Start: 01-15-2024 End: 01-15-2024 Clinical Support 01/15/2024 2:00 PM EDT Clinical Support [facility] [address] [facility] [place] [phone] Janeth Rodriguez, [facility] [address] [facility] [address] [facility] Start: 12-13-2023 End: 12-13-2023 ambulatory 12/13/2023 9:15 AM EST Support Visit Leelee Meier [facility] - Medical Oncology [address] [place] [phone] Leelee Meier [facility] Start: 12-04-2023 End: 12-04-2023 Patient encounter procedure 12/04/2023 9:15 AM EST Office Visit [facility] [address] [place] [phone] Matthew Giron, JACQUE [address] [address] [facility] Start: 11-27-2023 End: 11-27-2023 Patient encounter procedure 11/27/2023 3:30 PM EST Procedure Visit [facility] [address] [place] [phone] Lexy Pascual, SISI [address] [place] [address] [facility] Start: 11-27-2023 End: 11-27-2023 Patient encounter procedure 11/27/2023 9:30 AM EST Office Visit [facility] [address] [facility] [place] [phone] Juan Franco PA-C [address] [facility], [address] [place] [phone] [facility] Start: 11-19-2023 End: 11-19-2023 ambulatory 11/19/2023 9:30 AM EST Evaluation [facility] [address] [place] [phone] Gerardo Pete, PT [address] [place] [address] [facility] Start: 06-08-2023 Influenza vaccination Influenza Vacc ine [facility] Start: 04-22-2020 Urine screening for protein Urine Microalbumin [facility] Start: 1999 Adult BMI Follow Up Plan Adult BMI Follow Up Plan [facility] [facility] Start: 1999 Diabetic foot examination Diabetic Foot Exam [facility] Start: 1993 Depression Screening Depression Scre ening [facility] Start: 1981 Glaucoma screening Diabetic Op hthalmology Exam [facility] Start: 1981 Tobacco Counseling Tobacco Counselin g [facility] End: 11-27-2024 Sleep Deprived EEG Sleep Deprived EEG Neurology Routine Altered mental status, unspecified altered mental status type 1 Occurrences starting 11/27/2023 until 11/27/2024 [facility] Work Phone: Comment on above: 1 Occurrences starti ng 11/27/2023 until 11/27/2024 Immunizations Immunization Date Immunization Notes Care Provider Fa cili 10-24-2021 tetanus toxoid, reduced diphtheria toxoid, and acellular pertussis vaccine, adsorbed [facility] 08-01-2011 influenza, seasonal, injectable Juve Garrett DO Work Phone: [facility] 08-01-2011 influenza virus vaccine, unspecified formulation [facility] 04-11-2010 tetanus toxoid, reduced diphtheria toxoid, and acellular pertussis vaccine, adsorbed Juve Biedenbach DO Work Phone: [facility] Payers Date Payer Category Payer Medicare [id number]. [id number] 2022 Medicare [id number] 2022 Medicare [id number] 2017 Medicaid [id number]. [id number] 2017 Medicare [id number] 1981 Unknown [id number] 2.16.8 40.1.403057.3.579.2.173 1981 Unknown [id number] 2.16.8 40.1.604419.3.579.2.173 1981 Unknown [id number] 2.16.8 40.1.128586.3.579.2.173 1981 Unknown [id number] 2.16.84 0.1.749792.3.579.2.593 1981 Unknown [id number] 2.16.8 40.1.968014.3.579.2.1285 1981 Unknown [id number] 2.16.8 40.1.272245.3.579.2.1285 1981 Unknown [id number] 2.16.8 40.1.185666.3.579.2.1285 1981 Unknown [id number] 2.16.8 40.1.936065.3.579.2.1285 1981 Unknown [id number] 2.16.84 0.1.245616.3.579.2.1285 1981 Unknown [id number] 2.16.84 0.1.251707.3.579.2.1285 1981 Unknown [id number] 2.16.84 0.1.851129.3.579.2.1285 1981 Unknown [id number] 2.16.84 0.1.969552.3.579.2.1285 1981 Unknown [id number] 2.16.84 0.1.450174.3.579.2.1285 1981 Unknown [id number] 2.16.84 0.1.783010.3.579.2.1285 1981 Unknown [id number] 2.16.84 0.1.559307.3.579.2.1285 1981 Unknown [id number] 2.16.840 .1.871787.3.579.2.1285 1981 Unknown [id number] 2.16.840. 1.392601.3.579.2.1285 1981 Unknown [id number] 2.16.84 0.1.087889.3.579.2.1258 1981 Unknown [id number] 2.16.84 0.1.581450.3.579.2.1258 1981 Unknown [id number] 2.16.84 0.1.163554.3.579.2.1258 1981 Unknown [id number] 2.16.84 0.1.044867.3.579.2.1258 1981 Unknown [id number] 2.16.84 0.1.563521.3.579.2.1258 1981 Unknown [id number] 2.16.84 0.1.811284.3.579.2.1258 1981 Unknown [id number] 2.16.84 0.1.328484.3.579.2.1258 1981 Unknown [id number] 2.16.84 0.1.863817.3.579.2.1258 1981 Unknown [id number] 2.16.84 0.1.719710.3.579.2.1258 1981 Unknown [id number] 2.16.84 0.1.377791.3.579.2.1258 1981 Unknown [id number] 2.16.84 0.1.785199.3.579.2.1258 1981 Unknown [id number] 2.16.84 0.1.326052.3.579.2.1258 1981 Unknown [id number] 2.16.84 0.1.846171.3.579.2.1258 1981 Unknown [id number] 2.16.84 0.1.316886.3.579.2.1259 1981 Unknown [id number] 2.16.84 0.1.994356.3.579.2.1259 1981 Unknown [id number] 2.16.84 0.1.067606.3.579.2.1259 1981 Unknown [id number] 2.16.84 0.1.958152.3.579.2.1259 1981 Unknown [id number] 2.16.840 .1.396093.3.579.2.1259 1959 Medicaid [id number] 1958 Medicare [id number] Social History Date Type Detail Facility Start: 10-08-1999 End: 07-04-2023 Tobacco smoking status MEIS Smokes tobacco daily [facility] Start: 10-08-1999 History of tobacco use Cigarette Smo ker [facility] Start: 10-21-2020 End: 07-04-2023 Cigarettes smoked current (pack per day) - Reported 0.5 [facility] Start: 06-19-2023 End: 07-04-2023 Tobacco use and exposure Smokeless tobacco non-user [facility] Start: 10-02-2023 End: 11-27-2023 Alcohol intake Current non-drinker of alcohol (finding) [facility] Start: 10-21-2020 End: 11-03-2023 Tobacco use panel [facility] Are you worried or concerned that in the next two months you may not have stable housing that you own, rent or stay in as a part of a household? No [facility] Start: 1980 Sex Assigned At Not on file P [facility] Start: 11-14-2023 End: 11-16-2023 Alcohol intake Ex-drinker (finding) [facility] Start: 06-19-2023 Tobacco Comment Smokes 6-10 ci gs per day [facility] Start: 08-17-2023 Alcohol Comment caffeine intak e: 3-4 cups per day [facility] History of Present illness Narrative 11-27-2023 Juan Franco PA-C - 11/27/2023 9:30 AM EST Note Date & Type Note Facility 11-27-2023 History of Presen t illness Narrative [facility] Neurology Office Note 11/27/2023 9:19 AM Patient info: Lindsey Mcintyre is a 43 y.o. female Account No.: [id number] Acct: : 1980 PCP: KADI HERMOSILLO DO Chief Complaint: Patient, 43 year old right hand dominant female, presents today for follow up Neurological evaluation regarding altered mental status. Last evaluated via telehealth consult on 10/02/[address] Clayton Lindsey is present in the office today with mother and son. Interval Hx: Lindsey denies any further such episodes of altered mental status since the episode on 10/01/23. Brain MRI completed on 10/02/23 did not show any acute intracranial abnormality. Routine EEG completed the following day on 10/03/23 was read as normal. Taking of patient's history was somewhat difficult. Patient's mother states Lindsey has a hx of cerebral palsy. She also states Lindsey had a stroke at age 13; prior chart documentation states age 5. Mother also reports Lindsey having had seizure-like events as a child but was never diagnosed with seizures/epilepsy or placed on anti-seizure medication. Seizure Risk Factors: (-) family hx of seizures: (-) hx of significant head injury/trauma: (-) hx of MANAGER BEHAVIORAL infection: (+) hx of stroke/cerebrovascular malformation: reported stroke at age 13 (-) hx of intracranial tumor/mass/cyst: (+/-) hx of cognitive delays/impairment: hx of cerebral palsy (-) hx of abuse (physical/emotional/etc.): Recent Labs: 10/01/23: CBC showed a WBC of 12.6 (range: 4.0-11.0), CMP with a Glucose of 247, UDS (-), Ethanol < 0.01, Ammonia was 30 (range: 11-35), TSH was 6.43 (range: 0.49-4.67), Free T4 was 0.98 (range: 0.61-1.60), Vitamin B12 was 313 (range: 180-914), Blood Culture #1 and #2 were normal/without growth x 5 days Previous Studies: 10/03/23: Routine EEG - Normal 10/02/23: Brain MRI without contrast - No acute intracranial abnormality Prior Hx: Initial Consultation 10/02/23 Lindsey Mcintyre is a 43 y.o. female with PMH of DMT2, HTN, HLD, migraine, bipolar disorder, cerebral palsy, COPD, who presented to [facility] 10/01/23 with reports of not feeling well. Patient was unable to tell ED physician exactly what was wrong but did c/o of an upset stomach. She did deny N/V/D, headache, abdominal pain, SOB or fever. Patient reported that she did not take her medications yesterday because she was too busy cooking and doing things for [employer]. Family was with her and reported that she has been urinating a lot, they stated that at abruptly 18:30 the patient became disoriented. Initially, while in the ED the patient appears to have improving mental status, she then became more altered. She was confused, thrashing in the bed, attempting to bite RN. At one point soft wrist restraints were applied. She was initially given Haldol 2.5mg IV, which did not help with mentation. She was given another 2.5mg of Haldol with no effect on mentation. She was then given Benadryl IV 50 mg and Zyprexa 10 mg which did appear to calm her down. She later became more disoriented again prior to her MRI and she was given Haldol 10 mg and Zyprexa 5 mg. Patient did relax and fall asleep after giving medications. Workup thus far includes CT brain that was negative for any acute pathology, MRI brain without contrast that was negative for any acute pathology. She has been afebrile. She does have mild leukocytosis with a white count of 13.0. Patient's blood glucose was 237 on arrival. Drug screen is negative. Urinalysis is negative for infection. Patient currently evaluated via tele. She received medications earlier this morning and is just waking up and is very lethargic. She does state her name and knows she is at [facility]. She did state that she remembers cooking in the kitchen but she is unable to recall any other events that brought her to the hospital. Patient's son and family members are in the room and provide history. Patient's son states that after dinner they were all cleaning up and his mom laid down on the couch and became unresponsive briefly she woke up and told family members that she had to go to the hospital and passed out again briefly. They deny any convulsive seizure activity, tongue trauma or loss of bowel or bladder. They deny any history of epilepsy, family history of epilepsy, head trauma or previous events of unresponsiveness. Past Medical Hx: See EMR Social Hx: Tobacco: yes, at least 1/2 ppd smoker ETOH: none Illicit Substances: none Family Hx: Mother: HTN, DM II Father: Asthma, Aneurysm Siblings: --- Surgical Hx: See EMR Allergies: See EMR Review of Systems: Constitutional: Negative for fever, chills, sweats, or unintentional weight loss Eyes: Negative HENT: Negative Cardiovascular: Negative for chest pain and palpitations Respiratory: Negative for cough and shortness of breath Gastrointestinal: Negative for nausea, vomiting, abdominal pain and diarrhea Genitourinary: Negative for dysuria, urgency, frequency, or hematuria Musculoskeletal: - RA Skin: Negative Neurological: - as noted in the HPI Psychiatric/Behavioral: - cerebral palsy, anxiety and depression Endocrine: - DM II Hem/Onc: Negative Allergy/Immunology: Negative Vitals: BP: 114/64 HR: 90 Weight: 69.9 kg Physical Exam: General: well groomed, appears stated age Neurological Exam: The patient is awake, alert, and attentive Speech and language are normal Normal affect, with normal orientation and seemingly normal cognition EOMI, PERRL, No gross visual field deficits Face is symmetric, Tongue protrudes midline Palate rises symmetrically with uvula midline Shoulder shrug is strong bilaterally Nose to finger testing is without dysmetria Upper Extremity Drift is (-) Fine motor skills are approximately equal in each hand Tremor: (-) Sensation is intact and symmetric in the extremities bilaterally DTR's are 1-2+ throughout Wetzel's sign (-) bilaterally Strength throughout the Upper Extremities is 5/5 Strength throughout the Lower Extremities is 5/5 Muscle Tone throughout the extremities is normal Romberg is (-) Gait is steady with normal base, normal stride and bilateral arm swing ASSESSMENT: Lindsey is a 43 year old right hand dominant female with a hx of asthma, anxiety, depression, bipolar affective disorder, GERD, HTN, hyperlipidemia, migraine, RA, COPD, remote stroke, and cerebral palsy who had an episode of confusion/delirium of unknown etiology. PLAN: Will order a Sleep Deprived EEG; consider Ambulatory EEG or LTME in the future Follow up in the office in 2 months Electronically Signed by: Juan Franco PA-C 11/28/23 1407 documented in this encounter [facility] History of Present illness Narrative 11-16-2023 Juve Garrett, - 11/16/2023 10:30 AM EST Note Date & Type Note Facility 11-16-2023 History of Presen t illness Narrative Subjective Patient ID: Lindsey Mcintyre is a 43 y.o. female who presents for Neck Mass (New Patient : Parotid mass) HPI 43-year-old white female presents today for evaluation of right parotid mass. Patient was undergoing MRI of the brain for evaluation of possible seizure disorder. Incidental finding of a mass of the right parotid gland measuring greater than 1 cm. Patient has been asymptomatic. Review of Systems HENT: Positive for congestion and hearing loss. Patient does admit to be a smoker. Neurological: History of cerebral palsy All other systems reviewed and are negative. Allergies as of 11/16/2023 - Reviewed 11/16/2023 Allergen Reaction Noted Amoxicillin-pot clavulanate 04/18/2023 Hydromorphone 04/18/2023 Ketorolac tromethamine 04/18/2023 Aspirin 12/09/2016 Ibuprofen 02/13/2017 Penicillins Rash 12/09/2016 Tramadol Rash 03/09/2019 Past Medical History: Diagnosis Date Asthma (CMS/HCC) Bandemia 08/02/2023 Cerebral palsy (CMS/[facility]) COPD (chronic obstructive pulmonary disease) (CMS/[facility]) Delirium 10/01/2023 Depression (CMS/HCC) Diabetes (CMS/HCC) GERD (gastroesophageal reflux disease) Heart murmur HLD (hyperlipidemia) (CMS/HCC) Hx of tear of meniscus of knee joint Hypertension (CMS/HCC) Knee pain, left Lesion of parotid gland 11/14/2023 Migraine headache (CMS/HCC) Thrombocytosis 08/02/2023 Current Outpatient Medications: albuterol (2.5 MG/3ML) 0.083% nebulizer solution, USE 1 VIAL IN NEBULIZER EVERY 4 HOURS NEEDED, Disp: , Rfl: baclofen (Lioresal) 20 MG tablet, Take 20 mg by mouth 2 (two) times a day as needed, Disp: , Rfl: fluticasone-salmeterol (Advair) 45-21 MCG/ACT inhaler, Inhale 2 puffs in the morning and 2 puffs before bedtime. Rinse mouth with water after use to reduce aftertaste and incidence of candidiasis. Do not swallow.., Disp: , Rfl: HYDROcodone-acetaminophen ([place]) 5-325 MG tablet, , Disp: , Rfl: lisinopril 2.5 MG tablet, TAKE 1 TABLET BY MOUTH ONCE DAILY FOR 90 DAYS, Disp: , Rfl: omeprazole (PriLOSEC) [address] capsule, Take 40 mg by mouth in the morning., Disp: , Rfl: Pyridium 200 MG tablet, every 8 (eight) hours., Disp: , Rfl: rosuvastatin (Crestor) 40 MG tablet, TAKE 1 TABLET BY MOUTH ONCE DAILY FOR 90 DAYS, Disp: , Rfl: venlafaxine XR (Effexor XR) 150 MG 24 hr capsule, TAKE 1 CAPSULE BY MOUTH ONCE DAILY WITH FOOD, Disp: , Rfl: Past Surgical History: Procedure Laterality Date SECTION, LOW TRANSVERSE CHOLECYSTECTOMY 2021 KNEE SURGERY Left 07/17/2023 LT KNEE SCOPE- DR MORENO KNEE SURGERY Left 12/08/2019 LT KNEE SCOPE PER DR COCHRAN ROTATOR CUFF REPAIR Left 2010 SHOULDER ARTHROSCOPY Left 2006 LT SHOULDER SURGERY PER DR COCHRAN Social History Socioeconomic History Marital status: Unmarried Spouse name: Not on file Number of children: Not on file Years of education: Not on file Highest education level: Not on file Occupational History Not on file Tobacco Use Smoking status: Every Day Packs/day: .5 Types: Cigarettes Start date: 10/08/1999 Smokeless tobacco: Never Tobacco comments: Smokes 6-10 cigs per day Substance and Sexual Activity Alcohol use: Not Currently Comment: caffeine intake: 3-4 cups per day Drug use: Never Sexual activity: Not on file Other Topics Concern Not on file Social History Narrative Not on file Social Determinants of Health Financial Resource Strain: Not on file Food Insecurity: Not on file Transportation Needs: Not on file Physical Activity: Not on file Stress: Not on file Social Connections: Not on file Intimate Partner Violence: Not on file Housing Stability: Not on file Objective ENT Physical Exam General Examination: General overview: Normal, age-appropriate, no evidence of distress Head: Normocephalic, atraumatic Eyes: Pupils are equally round and reactive to light and accommodation, extraocular muscles are intact Ears: External ear architecture within normal limits, ear canals are patent, tympanic membranes are intact. Nose: External nose unremarkable, nares patent, septum intact, congestion noted. Evidence of smoking Oral cavity: Mucosa moist, no evidence of ulcer, mass, or lesion Throat: Clear Neck/thyroid: Neck supple, full range of motion, no cervical lymphadenopathy, no evidence of thyromegaly, review of her MRI does reveal a small nodule of the right parotid gland. Very subtle. Quality of MRI is very poor. Lymph nodes: No cervical lymphadenopathy Skin: Warm and dry, no evidence of suspicious lesions, no rash Heart: No jugular venous distention, point of maximal impulse normal Lungs: Good air movement, no audible wheezing, no shortness of breath Chest: Normal shape and expansion Abdomen: Normal, soft, nontender, nondistended Musculoskeletal: Cervical spine normal, full range of motion Extremities: No clubbing, cyanosis, or edema Peripheral pulses: 2+ radial, 2+ carotid Neurologic: Alert and oriented, cranial nerves 2-12 are grossly intact Psych: Alert and oriented, normal affect, no evidence of distress Assessment/Plan Diagnoses and all orders for this visit: Parotid mass Comments: I recommend getting a CT scan of the neck in 6 months to look for interval change. Tobacco abuse Comments: Patient is encouraged to quit smoking Hearing loss, unspecified hearing loss type, unspecified laterality Comments: will arrange for an audiogram in the future documented in this encounter [facility] Note 10-17-2023 Telephone Encounter - Reema Amaya - 10/17/2023 12:45 PM ESTTelephone Encounter - Mildred Almeida - 10/17/2023 12:45 PM ESTTelephone Encounter - Deandra Shirley - 10/17/2023 12:45 PM EST Note Date & Type Note Facility 10-17-2023 Miscellaneous Notes Received call today 10/17/23 12:45 from patient to schedule new patient appt and I asked if referral was sent to us and she said no, she was handed referral by her PCP, Kadi Hermosillo. She will call their office to have them send referral, medical records for dx, and fax sheet to our referral fax# which I provided. I told her we need this information before we can schedule an appt. She said appt will not be through Workers Comp and isn't due to an accident. She said she no longer has [employer] Medicare Dual Complete. She said her primary is now [employer] and secondary is [place] Medicaid. She said she hasn't seen a neurologist before so it's not for second opinion. First [facility] from [facility] Voicemail New patient referral received. Dx:Altered mental status, unspecified altered mental status type [R41.82]/ Referred by:Kadi Hermosillo DO Referred to: Providers patient can see in clinic: Please contact patient to schedule from referral, Thanks! PLEASE REVIEW PLAN OVER THE PHONE AND ADVISE PATIENT TO BRING UPDATED INSURANCE INFORMATION TO THEIR NEW PATIENT APPOINTMENT Patient is scheduled for the following appointment on (JUAN FRANCO PA-C) 11/27/2023 at 9:30 AM. New patient Altered mental status, unspecified altered mental status type [R41.82] Referring provider: Kadi Hermosillo DO Requesting first available provider in [facility] with [place] Insurance verified: [place] [employer] [place] Exchange Not worker's comp related New patient paperwork mailed 11/09/2023 - MMV documented in this encounter [facility] Telephone encounter Note 10-17-2023 Telephone Encounter - Reema Amaya - 10/17/2023 12:45 PM EST Note Date & Type Note Facility 10-17-2023 Telephone encounter Note Received call today 10/17/23 12:45 from patient to schedule new patient appt and I asked if referral was sent to us and she said no, she was handed referral by her PCP, Kadi Hermosillo. She will call their office to have them send referral, medical records for dx, and fax sheet to our referral fax# which I provided. I told her we need this information before we can schedule an appt. She said appt will not be through [employer] and isn't due to an accident. She said she no longer has [employer] Medicare Dual Complete. She said her primary is now [employer] and secondary is [place] Medicaid. She said she hasn't seen a neurologist before so it's not for second opinion. [employer] Telephone encounter Note 10-17-2023 Telephone Encounter - Mildred Almeida - 10/17/2023 12:45 PM EST Note Date & Type Note Facility 10-17-2023 Telephone encount er Note First Attempt Made from [facility] Voicemail New patient referral received. Dx:Altered mental status, unspecified altered mental status type [R41.82]/ Referred by:Kadi Hermosillo DO Referred to: Providers patient can see in clinic: Please contact patient to schedule from referral, Thanks! PLEASE REVIEW PLAN OVER THE PHONE AND ADVISE PATIENT TO BRING UPDATED INSURANCE INFORMATION TO THEIR NEW PATIENT APPOINTMENT [employer] Telephone encounter Note 10-17-2023 Telephone Encounter - Deandra Shirley - 10/17/2023 12:45 PM EST Note Date & Type Note Facility 10-17-2023 Telephone encount er Note Patient is scheduled for the following appointment on (JUAN FRANCO PA-C) 11/27/2023 at 9:30 AM. New patient Altered mental status, unspecified altered mental status type [R41.82] Referring provider: Kadi Hermosillo, Requesting first available provider in [facility] with PA Insurance verified: [employer] [place] Exchange Not worker's comp related New patient paperwork mailed 11/09/2023 - MMV [facility] Evaluation note Note Date & Type Note Facility Evaluation note Diagnosis Parotid mass- Primary Swelling, mass, or lump in head and neck Tobacco abuse Tobacco use disorder Hearing loss, unspecified hearing loss type, unspecified laterality documented in this encounter [facility] Evaluation note Note Date & Type Note Facility Evaluation note Diagnosis Altered mental status, unspecified altered mental status type- Primary Other cerebral palsy (CMS-HCC) Anxiety and depression Bipolar affective disorder, remission status unspecified ([facility]-HCC) documented in this encounter [facility] Instructions Note Date & Type Note Facility Instructions Not on filedocumented in this en counter [facility] Instructions Note Date & Type Note Facility Instructions Not on filedocumented in this en counter [facility] Summary Purpose Family History No Family History Records FoundNo Family History Records FoundNo Family History Records FoundNo Family History Records FoundNo Family History Records Found Advance Directives No Advanced Directives Records FoundLatest Code Status on File Code Status Date Activated Date Inactivated Comments Full Code 10/01/2023 10:58 PM 10/03/2023 1:22 PM Latest Code Status on File Code Status Date Activated Date Inactivated Comments Full Code 10/01/2023 10:58 PM 10/03/2023 1:22 PM Reason for Referral Specialty Diagnoses / Procedures Referred By Contac t Referred To Contact Diagnoses Altered mental status, unspecified altered mental status type Procedures Sleep Deprived EEG Juan Franco, MAVIS [address] [place] [address] Referral ID Status Reason Start Date Expiration Date V isits Requested Visits Authorized [id number] Pending Review 11/27/2023 11/26/2024 1 1 Additional Source Comments INFORMATION SOURCE (unrecogn ized section and content) DATE CREATED AUTHOR 03/12/2019 Deana de jesus DATE CREATED AUTHOR AUTHOR'S ORGANIZ ATION 08/28/2021 [facility] DATE CREATED AUTHOR AUTHOR'S ORGANIZ ATION 09/28/2022 [facility] DATE CREATED AUTHOR AUTHOR'S ORGANIZ ATION 11/28/2023 [facility] DATE CREATED AUTHOR AUTHOR'S ORGANIZ ATION 02/11/2024 [facility] EPIC Reason for Visit (unrecogniz ed section and content) Reason Onset Date Comments Neurology Referral 10/17/2023 Reason Comments Neck Mass New Patient : Paroti d mass Reason Comments Memory Loss Patient is here toda y as a new patient for Altered mental status, unspecified altered mental status type. 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 Specialty Start Date End Date Kadi Hermosillo DO [address] [place] [address] PCP - General Family Medicine 01/24/22 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 Relationship Specialty Start Date End Date Pawan Kerns MD [address] [facility] [place] [id number] PCP - General 04/16/23 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 Relationship Specialty Start Date End Date Pawan Kerns MD [address] [facility] [place] [id number] PCP - General 04/16/23 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 This clinical summary was aggregated from multiple sources. Caution should be exercised in using it in the provision of clinical care. This summary normalizes information from multiple sources, and as a consequence, information in this document may materially change the coding, format and clinical context of patient data. In addition, data may be omitted in some cases. CLINICAL DECISIONS SHOULD BE BASED ON THE PRIMARY CLINICAL RECORDS. [facility]. provides no warranty or guarantee of the accuracy or completeness of information in this document.
[2024-04-22 08:33] VITALS: BP 148/98; PULSE 92; TEMP 36.7; O2SAT 100
[2024-04-22 08:39] LABS: Glucometer 198 mg/dL (74-106)
[2024-04-22 08:40] LABS: HCG Qualitative NEGATIVE (NEGATIVE); Internal Control Within Normal Limits
[2024-04-22 09:25] VITALS: BP 153/83; BP 155/72; PULSE 82; O2SAT 96; O2SAT 98
[2024-04-22] MEDS: BUPIVACAINE HCL 0.25% PF 25 MG/10 ML VIAL INJ (09:27)
--- NOTE | 2024-04-22 09:47 | P.ON_ITS ---
Date of procedure: 04/22/24 Pre-op diagnosis: Lumbar spondylosis Post-op diagnosis: same as pre-op Procedure: Left lumbar 1/2, 2/3 medial branch block Under fluoroscopic guidance Solution injected: 2millilitersMarcaine 0.25% Anesthesia :none Immediate complications none Time out process compliant After informed consent obtained from the patient placed in the Prone proposition . area was prepped and draped in a sterile fashion using Cloraprep .25 gauge spinal needle inserted over each of the above mentioned target areas . [place] were directed towards the target under fluoroscopic guidance . after encountering each of the targets , no indication of intravascular intraneuronal or intrathecal needle tip placement. Then 0 .5 to 1 Milliliter was injected at each level. [place] removed postoperatively. patient transferred to recovery in stable condition to be discharged home after meeting criteria Anesthesia: Local Surgeon: Charlie Harry Condition: stable
== END 2024-04-22 09:33 | disposition home or self-care (01) ==
LOC: SURGOUT 07:59
PROVIDERS: PCP Family Medicine; Visit Provider Anesthesiology Pain Medicine
DX: M47.816 Spondylosis without myelopathy or radiculopathy, lumbar region (principal); Z79.4 Long term (current) use of insulin; Z79.84 Long term (current) use of oral hypoglycemic drugs
CPT/HCPCS: 36415; 64493; 64494; 82948; 84703; J0665

== ENCOUNTER 2024-04-23 10:16 | Outpatient (OUT) | payer MEDICARE, MEDICAID, SELFPAY ==
--- NOTE | 2024-04-23 10:43 | P.CN_ITS ---
Consult Note: HPI Data of Consult Patient: known to practice within the last 3 years Requesting Physician: Christina Chiu NP Primary Care Provider: Kadi Chung Consult Narrative Reason for consult: f/u Narrative: Lindsey Knapp a pleasant 43 year old female presents for evaluation and management of chronic mid low back pain. She describes the pain as being 1.5/10 increasing to 6-7/10 pain, sharp in character, increased with activity such as standing, walking and performing transitioning maneuvers. Denied any change in bowel and bladder habits or new sensorimotor change in the lower extremities. reports mild benefit from OTC tylenol and xanaflex 2-4mg BID PRN prn. Recently underwent Left L1/2 L2/3 MBB #1 with >80% improvement in pain and function immediately following and hours after. cc:: CC: Christina Chiu NP Review of Systems ROS Status of ROS 10 or more systems reviewed and unremark able except as noted in history and below Musculoskeletal Reports: back pain Meds Home Medications and Allergies Home Medications ?Medication ?Instructions ?Recorded ?Confirmed ?Type albuterol sulfate 90 mcg/actuation 1 inh inhalation QID 02/27/24 04/22/24 History aerosol inhaler insulin aspart U-100 100 unit/mL 6 unit subcut TID 02/27/24 04/22/24 History (3 mL) subcutaneous pen (Novolog FlexPen U-100 Insulin aspart) insulin glargine 100 unit/mL 10 unit subcut QPM 02/27/24 04/22/24 History subcutaneous solution (Lantus U-100 Insulin) insulin lispro 100 unit/mL 10 unit subcut TID 02/27/24 04/22/24 History subcutaneous cartridge lisinopril 20 mg tablet 20 mg PO DAILY 02/27/24 04/22/24 History metformin 1,000 mg tablet 1,000 mg PO DAILY 02/27/24 04/22/24 History omeprazole 40 mg capsule,delayed 40 mg PO DAILY 02/27/24 04/22/24 History release rosuvastatin 40 mg tablet 40 mg PO DAILY 02/27/24 04/22/24 History sitagliptin phosphate 25 mg tablet 25 mg PO DAILY 02/27/24 04/22/24 History (Januvia) tizanidine 4 mg capsule (Zanaflex) 4 mg PO BID PRN muscle spasticity 02/27/24 04/22/24 History Allergies Allergy/AdvReac Type Severity Reaction Status Date / Time ibuprofen AdvReac Unknown Unknown Verified 04/22/24 08:31 Exam Constitutional Documenting provider has reviewed patient's vital signs: yes Common normals: no apparent distress, oriented x3, healthy appearing, alert and well nourished General appearance: cooperative HENMT Common normals: normocephalic, hearing grossly normal bilaterally and moist oral mucous membranes Head and scalp: normocephalic Eye Common normals: PERRL Pupil: PERRL Neck & C-Spine Common normals: full ROM General: normal visual inspection Chest Common normals: inspection of chest normal Respiratory Common normals: normal respiratory effort, no retractions and no use of accessory muscles Back & Pelvis Lumbar spine/lower back: ROM limited, pain with ROM, lumbar spinal tenderness and straight leg raise negative bilaterally Other: left positive facet loading, pain over L1-3 facets no radiculopathy no spasms noted strength 5/5 in BLE Extremity Common normals: normal to inspection and full ROM Neuro Common normals: oriented x3, CN's II-XII intact bilaterally, moves all extremities, no focal motor deficits, no sensory deficits noted, deep tendon reflexes 2+ bilaterally and gait normal Sensorium/orientation: alert Motor exam: strength 5/5 throughout and no movement abnormalities noted Psych Common normals: mental status grossly normal, thought process normal, cooperative, affect normal, speech normal and activity/motor behavior normal Speech: normal speech Thought process: normal thought process Results Additional Findings Additional findings: If on a controlled substance or opioids, I have checked an [place] report on this patient and there are no aberrancies noted in the prescribing history.??If on a controlled substance or opioid a drug screen was completed and reviewed within the last year, and if there has not been a drug screen completed we ordered one today to monitor higher risk, state monitored pain medication use. As part of providing excellent, safe, comprehensive care, the following was completed at our patient's visit: 1. A medication reconciliation and review to ensure accurate knowledge of current/active medications, including asking our patients to inform us about any [id number] medications or herbal remedies/nutritional supplements/alternative remedies. 2. A review to specifically ensure our patients have had annual screening for screening for depression, screening for tobacco use, and screening for unhealthy alcohol use. For concerning screenings had a discussion with the patient, provided patient education, and recommended follow-up with primary care provider when appropriate. If patient noted with a risk of falling, they received education on strength, gait, and balance training to prevent future risk of falling. Assessment and Plan Assessment and Plan (1) Lumbar spondylosis: (2) Myalgia: Plan left L1-2 L2-3 MBB #2 under fluoroscopy working towards thermal RFA, to be completed with 10mg PO Valium 30-60 mins prior to procedure due to anxiety. Risks vs benefits reviewed continue current medications f/u after injection
== END 2024-04-23 10:17 | disposition home or self-care (01) ==
LOC: PM 10:16
PROVIDERS: PCP Family Medicine; Visit Provider Nurse Practitioner
DX: M47.816 Spondylosis without myelopathy or radiculopathy, lumbar region (principal); M79.10 Myalgia, unspecified site
CPT/HCPCS: G0463

== ENCOUNTER 2024-05-06 06:56 | Day surgery (SDC) | payer MEDICARE, MEDICAID, SELFPAY ==
--- OUTSIDE RECORDS SUMMARY | 2024-05-06 06:59 | XMS_ITS | CCD ---
Author Organization [facility] CliniSyut Care Team Providers Care Title I Paraprofessional Name Role Phone ROWAN CASANOVA Primary Care Unavailable BRENDA WEI Attending Unavailab JUICE Sweet Attending Unavailable JUAN, DR IVORY Consulting Unavailable [facility] DR GOLDSMITH Primary Care Unavailable JUAN, DR IVORY Attending Unavailable JUAN, DR IVORY Admitting Unavailable JESÚS, DR CASTRO Consulting Unavailable Solo Navarrete Attending Unavailable Rumschlag DO, Kadi K Primary Care Provider [phone] Pawan Kerns MD Primary Care Provider [phone] RUMSCHLAG, KADI K Primary Care Unavailable MEAGAN [...] RUMSCHLAG, KADI K Primary Care Unavailable VICKY RUSIHNG Attending Unavailable СЕРГЕЙ, VICKY M Referring Unavailable [...] Primary Care Provider MATTHEW GIRON Attending Unavailable GIRON, MATTHEW Godoy Referring Unavailable JUVE GARRETT Attending Unavailable KADI HERMOSILLO Referring Unavailable GIRON, MATTHEW Godoy Attending Unavailable GIRON, MATTHEW Godoy Attending Unavailable XAVIER, GERARDO Godoy Attending Unavailable GIRON, J Referring Unavailable XAVIER, GERARDO Godoy Attending Unavailable GIRON, J Referring Unavailable XAVIER, GERARDO Godoy Attending Unavailable GIRON, J Referring Unavailable XAVIER, GERARDO Godoy Attending Unavailable GIRON, J Referring Unavailable JANETH COLEMAN Attending Unavailable RUSHER, LEXY Lal Attending Unavailable XAVIER, GERARDO Godoy Attending Unavailable GIRON, MATTHEW Godoy Referring Unavailable ANGIE YOUNGBLOOD Attending Unavailable GIRON, J Referring Unavailable XAVIER, GERARDO Godoy Attending Unavailable GIRON, J Referring Unavailable GIRON, MATTHEW Godoy Attending Unavailable XAVIER, GERARDO Godoy Attending Unavailable GIRON, J Referring Unavailable XAVIER, GERARDO Godoy Attending Unavailable GIRON, J Referring Unavailable JR. TIFFANIE, SUSAN Walker Attending Unavaila ble BRENDA, LEXY Lal Attending Unavailable JR. TIFFANIE, SUSAN Walker Attending Unavaila stephany MORENO JR., SUSAN Walker Referring Unavaila ble Allergies Allergy Classification Reported Allergen(s) Allergy Type Date of Onset Reaction(s) Facility (2 sources) Amoxicillin; Translations: [AMOXICILLIN] Drug Allergy 02-14-20 17 [facility] Repository (2 sources) Aspirin; Translations: [ASPIRIN] Drug Allergy 02-14-20 17 [facility] Repository (2 sources) Amoxicillin Drug Allergy 02-14-20 17 [facility] [employer] [facility] Work Phone: (2 sources) Aspirin Drug Allergy 02-14-20 Other (See Comments) [employer] [facility] (6 sources) Ibuprofen; Translations: [IBUPROFEN] Drug Allergy 02-14-20 17 Other (See Comments) [facility] [employer] [facility] (3 sources) traMADol; Translations: [TRAMADOL HCL] Drug Allergy 03-09-20 19 [facility] [employer] [facility] (3 sources) Aluminum aspirin Drug Allergy 12-10-19 17 [facility] (3 sources) HYDROmorphone Drug Allergy 04-18-20 23 [facility] (3 sources) Ketorolac trometamol Allergy to substance 04-18-20 23 [facility] (3 sources) Penicillins Drug Intolerance 12-10-19 17 [facility] (3 sources) traMADol Drug Allergy 03-09-20 19 [facility] (3 sources) Amoxicillin-Pot Clavulanate Drug Allergy 04-18-20 23 [facility] Work Phone: Medications Current Medications Medication Drug Class(es) Dates Sig (Normalized) Sig (Original) acetaminophen 325 mg / HYDROcodone bitartrate 5 mg oral tablet (3 sources) Opioid Agonist Start: 07-17-2023 HYDROcodone-aceta minophen ([place]) 5-325 MG tablet albuterol 0.83 mg/ml inhalation [...] mg total) by mouth nightly. 0 Active tclsdaqh-yqnj-ML-calciu m &mins (THERAGRAN-M) 9 mg iron-400 mcg tablet (2 sources) dizvuiwe-vyzh-HQ -ca lcium &mins (THERAGRAN-M) 9 mg iron-400 [...] 02/22/2023 Active take 2 tablets by mo uth in the morning, then take 2 tablets [...] Ag EIA Ql (Throat) Negative Normal NEG [facility] Comment on above: Performed By: #### C BCA, CMP, 41938-8, 5643-2 #### [facility] ([id number]) [address] [place] [address], [place] [address] SARS/FLU A+B/RSV by NAAT/Mol ecularon 11-21-2023 SARS/FLU [...] operators who are performing tests using either Perosphere DX or Crowdp[employer] systems and is limited to laboratories that [...] repeat. Fact Sheet for Healthcare Providers: https://www.fda.gov/me pascual/984670/download Fact Sheet for Patients: https://www.fda.gov/me pascual/116124/download Normal [facility] Comment on above: Performed By: #### C SARAH ANDERSON, 03809-9, 5643-2 #### [facility] ([id number]) [address] [place] [address] CBC AND AUTO DIFFon 10-03-20 ABSOLUTE BASOPHIL 0.0 X10E9/L Normal 0.0-0.2 [facility] Comment on above: Performed By: #### C SARAH ANDERSON, 89904-2, 5643-2 #### [facility] ([id number]) [address] [place] [address] 25897 ABSOLUTE NEUTROPHIL 3.0 X10E9/L Normal 1.5-6.6 [facility] Comment on above: Performed By: #### Aaron ANDERSON CMP, , 5642-2 #### [facility] ([id number]) [address] [place] [address] 03974 Basophils/100 WBC (Bld) 0.6 % Normal [facility] Comment on above: Performed By: #### Aaron ANDERSON, CMP, , 5642- #### [facility] ([id number]) [address] [place] [address] 47627 Eosinophils (Bld) [#/Vol] 0.1 10*3/uL Normal 0.0-0.4 [facility] Comment on above: Performed By: #### Aaron ANDERSON CMP, , 5642- #### [facility] ([id number]) [address] [place] [address] 71531 Eosinophils/100 WBC (Bld) 0.9 % Normal [facility] Comment on above: Performed By: #### Aaron ANDERSON, CMP, , 5642-2 #### [facility] ([id number]) [address] [place] [address] 04823 Erythrocyte distribution width (RBC) [Ratio] 13.6 % Normal 11.5-15.0 [facility] Comment on above: Performed By: #### Aaron ANDERSON, CMP, , 56-2 #### [facility] ([id number]) [address] [place] [address] 69352 Hematocrit (Bld) [Volume fraction] 39.7 % Normal 35-47 [facility] Comment on above: Performed By: #### Aaron ANDERSON CMP, , 43-2 #### [facility] ([id number]) [address] [place] [address] 06346 Hemoglobin (Bld) [Mass/Vol] 13.1 g/dL Normal 11.7-15.5 [facility] Comment on above: Performed By: #### Aaron ANDERSON CMP, , 5642- #### [facility] ([id number]) [address] [place] [address] 37385 Lymphocytes (Bld) [#/Vol] 2.2 10*3/uL Normal 1.0-3.5 [facility] Comment on above: Performed By: #### Aaron ANDERSON CMP, , 5642- #### [facility] ([id number]) [address] [place] [address] 54281 Lymphocytes/100 WBC (Bld) 36.6 % Normal [facility] Comment on above: Performed By: #### Aaron ANDERSON CMP, , 5642- #### [facility] ([id number]) [address] [place] [address] 63449 MCH (RBC) [Entitic mass] 28.5 pg Normal 27-34 [facility] Comment on above: Performed By: #### Aaron ANDERSON CMP, , 5642- #### [facility] ([id number]) [address] [place] [address] 07653 MCHC (RBC) [Mass/Vol] 32.9 g/dL Normal 32-36 [facility] Comment on above: Performed By: #### Aaron ANDERSON CMP, , 5642- #### [facility] ([id number]) [address] [place] [address] 27804 MCV (RBC) [Entitic vol] 87 fL Normal 80-100 [facility] Comment on above: Performed By: #### Aaron ANDERSON CMP, , 5642-2 #### [facility] ([id number]) [address] [place] [address] 96870 Monocytes (Bld) [#/Vol] 0.8 10*3/uL Normal 0-0.9 [facility] Comment on above: Performed By: #### Aaron ANDERSON, CMP, , 43-2 #### [facility] ([id number]) [address] [place] [address] 14846 Monocytes/100 WBC (Bld) 13.1 % Normal [facility] Comment on above: Performed By: #### Aaron ANDERSON, CMP, , 43-2 #### [facility] ([id number]) [address] [place] [address] 34162 Neutrophils/100 WBC (Bld) 48.8 % Normal [facility] Comment on above: Performed By: #### Aaron ANDERSON, CMP, , 43-2 #### [facility] ([id number]) [address] [place] [address] 31219 Platelet mean volume (Bld) [Entitic vol] 7.7 fL Normal 7-12 [facility] Comment on above: Performed By: #### Aaron ANDERSON, CMP, , 5643-2 #### [facility] ([id number]) [address] [place] [address] 46667 Platelets (Bld) [#/Vol] 392 10*3/uL Normal 150-450 [facility] Comment on above: Performed By: #### Aaron ANDERSON, CMP, , 5643-2 #### [facility] ([id number]) [address] [place] [address] 57340 RBC COUNT 4.58 X10E12/L Normal 3.80-5.20 [facility] Comment on above: Performed By: #### Aaron ANDERSON, CMP, , 5643-2 #### [facility] ([id number]) [address] [place] [address] 92208 WBC (Bld) [#/Vol] 6.1 10*3/uL Normal 4.0-11.0 [facility] Comment on above: Performed By: #### C BCA, CMP, , 5643-2 #### [facility] ([id number]) [address] [place] [address] 98595 COMPREHENSIVE METABOLIC PANE [facility] 10-03-2023 Albumin [Mass/Vol] 3.6 g/dL Normal 3.2-5.3 [facility] Comment on above: Performed By: #### C BCA, CMP, , 43-2 #### [facility] ([id number]) [address] [place] [address] 80073 ALP [Catalytic activity/Vol] 86 U/L Normal 39-130 [facility] Comment on above: Performed By: #### C BCA, CMP, , 43-2 #### [facility] ([id number]) [address] [place] [address] 07259 ALT [Catalytic activity/Vol] 24 U/L Normal 0-31 [facility] Comment on above: Performed By: #### C BCA, CMP, , 5643-2 #### [facility] ([id number]) [address] [place] [address] 05445 Anion gap [Moles/Vol] 7 mmol/L Normal 5-15 [facility] Comment on above: Performed By: #### C BCA, CMP, , 5643-2 #### [facility] ([id number]) [address] [place] [address] 15565 AST [Catalytic activity/Vol] 36 U/L Normal 0-41 [facility] Comment on above: Performed By: #### C BCA, CMP, , 5643-2 #### [facility] ([id number]) [address] [place] [address] 22164 Bilirubin [Mass/Vol] 0.7 mg/dL Normal 0.3-1.2 [facility] Comment on above: Performed By: #### C JUSTIN CMP, , 5643-2 #### [facility] ([id number]) [address] [place] [address] 99275 Calcium [Mass/Vol] 8.5 mg/dL Normal 8.5-10.5 [facility] Comment on above: Performed By: #### C JUSTIN CMP, , 5643-2 #### [facility] ([id number]) [address] [place] [address] 58800 Chloride [Moles/Vol] 107 mmol/L Normal 98-109 [facility] Comment on above: Performed By: #### C JUSTIN CMP, , 5643-2 #### [facility] ([id number]) [address] [place] [address] 78216 CO2 [Moles/Vol] 23 mmol/L Normal 22-32 [facility] Comment on above: Performed By: #### C JUSTIN CMP, , 5643-2 #### [facility] ([id number]) [address] [place] [address] 66214 Creatinine [Mass/Vol] 0.70 mg/dL Normal 0.40-1.00 [facility] Comment on above: Result Comment: METH OD TRACEABLE TO IDMS STANDARD Performed By: #### C JUSTIN CMP, , 5643-2 #### [facility] ([id number]) [address] [place] [address] 95363 eGFR (CKD-EPI) NON-RACE DEPENDENT >90 Normal >59 [facility] Comment on above: Result Comment: Reported eGFR is based on the CKD-EPI 2020 equation that does not use a race coefficient. Performed By: #### C JUSTIN, CMP, , 5643-2 #### [facility] ([id number]) [address] [place] [address] 89491 Glucose [Mass/Vol] 78 mg/dL Normal 65-99 [facility] Comment on above: Performed By: #### C JUSTIN, [facility], , 56-2 #### [facility] ([id number]) [address] [place] [address] 31824 Potassium [Moles/Vol] 3.6 mmol/L Normal 3.5-5.0 [facility] Comment on above: Performed By: #### C JUSTIN, CMP, , 56-2 #### [facility] ([id number]) [address] [place] [address] 42282 Protein [Mass/Vol] 6.6 g/dL Normal 6.0-8.0 [facility] Comment on above: Performed By: #### C JUSTIN, [facility], , 5643-2 #### [facility] ([id number]) [address] [place] [address] 08958 Sodium [Moles/Vol] 137 mmol/L Normal 134-146 [facility] Comment on above: Performed By: #### C JUSTIN, CMP, , 5643-2 #### [facility] ([id number]) [address] [place] [address] 17554 Urea nitrogen [Mass/Vol] 17 mg/dL Normal 5-23 [facility] Comment on above: Performed By: #### C BCA, CMP, , 5642-2 #### [facility] ([id number]) [address] [place] [address] 84444 MAGNESIUMon 10-03-2023 Magnesium [Mass/Vol] 1.9 mg/dL Normal 1.8-2.6 [facility] Comment on above: Performed By: #### Aaron ANDERSON CMP, , 5642-2 #### [facility] ([id number]) [address] [place] [address] 79806 AMMONIAon 10-02-2023 Ammonia (P) [Moles/Vol] 33 umol/L Normal 11-35 [facility] Comment on above: Performed By: #### Aaron ANDERSON CMP, , 5642-2 #### [facility] ([id number]) [address] [place] [address] 80960 BLOOD CULTUREon 10-02-2023 Bacteria identified Aer cx Nom (Bld) SPECIMEN NOTES SUBOPTIMAL VOLUME OF BLOOD COLLECTED, RESULTS MAY BE AFFECTED. CULTURE RESULTS NO GROWTH 5 DAYS Normal [facility] Comment on above: Performed By: #### Aaron ANDERSON CMP, , 5642-2 #### [facility] ([id number]) [address] [place] [address] Bacteria identified Aer cx Nom (Bld) SPECIMEN NOTES SUBOPTIMAL VOLUME OF BLOOD COLLECTED, RESULTS MAY BE AFFECTED. CULTURE RESULTS NO GROWTH 5 DAYS Normal [facility] Comment on above: Performed By: #### Aaron ANDERSON CMP, , 56- #### [facility] ([id number]) [address] [place] [address] 99948 CBC AND AUTO DIFFon 10-02-20 23 ABSOLUTE BASOPHIL 0.1 X10E9/L Normal 0.0-0.2 [facility] Comment on above: Performed By: #### Aaron ANDERSON CMP, , 5643-2 #### [facility] ([id number]) [address] [place] [address] 11245 ABSOLUTE NEUTROPHIL 8.5 X10E9/L High 1.5-6.6 [facility] Comment on above: Performed By: #### Aaron ANDERSON CMP, , 56-2 #### [facility] ([id number]) [address] [place] [address] 95264 Basophils/100 WBC (Bld) 0.5 % Normal [facility] Comment on above: Performed By: #### Aaron ANDERSON CMP, , 56-2 #### [facility] ([id number]) [address] [place] [address] 03073 Eosinophils (Bld) [#/Vol] 0.1 10*3/uL Normal 0.0-0.4 [facility] Comment on above: Performed By: #### Araon ANDERSON CMP, , 5642- #### [facility] ([id number]) [address] [place] [address] 70683 Eosinophils/100 WBC (Bld) 0.6 % Normal [facility] Comment on above: Performed By: #### Aaron ANDERSON CMP, , 5642-2 #### [facility] ([id number]) [address] [place] [address] 66699 Erythrocyte distribution width (RBC) [Ratio] 13.6 % Normal 11.5-15.0 [facility] Comment on above: Performed By: #### Aaron ANDERSON CMP, , 56- #### [facility] ([id number]) [address] [place] [address] 69546 Hematocrit (Bld) [Volume fraction] 43.3 % Normal 35-47 [facility] Comment on above: Performed By: #### Aaron ANDERSON, CMP, , 5642- #### [facility] ([id number]) [address] [place] [address] 45867 Hemoglobin (Bld) [Mass/Vol] 14.4 g/dL Normal 11.7-15.5 [facility] Comment on above: Performed By: #### Aaron ANDERSON CMP, , 43-2 #### [facility] ([id number]) [address] [place] [address] 07598 Lymphocytes (Bld) [#/Vol] 3.2 10*3/uL Normal 1.0-3.5 [facility] Comment on above: Performed By: #### Aaron ANDERSON CMP, , 5642- #### [facility] ([id number]) [address] [place] [address] 02086 Lymphocytes/100 WBC (Bld) 24.9 % Normal [facility] Comment on above: Performed By: #### Aaron ANDERSON CMP, , 5642- #### [facility] ([id number]) [address] [place] [address] 62032 MCH (RBC) [Entitic mass] 28.9 pg Normal 27-34 [facility] Comment on above: Performed By: #### Aaron ANDERSON CMP, , 5642-2 #### [facility] ([id number]) [address] [place] [address] 12853 MCHC (RBC) [Mass/Vol] 33.4 g/dL Normal 32-36 [facility] Comment on above: Performed By: #### Aaron ANDERSON CMP, , 5642- #### [facility] ([id number]) [address] [place] [address] 95449 MCV (RBC) [Entitic vol] 87 fL Normal 80-100 [facility] Comment on above: Performed By: #### Aaron ANDERSON, CMP, , 5642-2 #### [facility] ([id number]) [address] [place] [address] 60989 Monocytes (Bld) [#/Vol] 1.1 10*3/uL High 0-0.9 [facility] Comment on above: Performed By: #### Aaron ANDERSON CMP, , 5642-11 #### [facility] ([id number]) [address] [place] [address] 94926 Monocytes/100 WBC (Bld) 8.5 % Normal [facility] Comment on above: Performed By: #### Aaron ANDERSON, CMP, , 5642- #### [facility] ([id number]) [address] [place] [address] 25617 Neutrophils/100 WBC (Bld) 65.5 % Normal [facility] Comment on above: Performed By: #### Aaron ANDERSON, CMP, , 5642- #### [facility] ([id number]) [address] [place] [address] 72662 Platelet mean volume (Bld) [Entitic vol] 7.7 fL Normal 7-12 [facility] Comment on above: Performed By: #### Aaron ANDERSON, CMP, , 5642- #### [facility] ([id number]) [address] [place] [address] 31034 Platelets (Bld) [#/Vol] 510 10*3/uL High 150-450 [facility] Comment on above: Performed By: #### Aaron ANDERSON, CMP, , 5642- #### [facility] ([id number]) [address] [place] [address] 16133 RBC COUNT 4.99 X10E12/L Normal 3.80-5.20 [facility] Comment on above: Performed By: #### Aaron BCA, CMP, , 5642- #### [facility] ([id number]) [address] [place] [address] 33025 WBC (Bld) [#/Vol] 13.0 10*3/uL High 4.0-11.0 [facility] Comment on above: Performed By: #### Aaron BCA, CMP, , 5642-2 #### [facility] ([id number]) [address] [place] [address] 91247 COMPREHENSIVE METABOLIC PANE Artur 10-02-2023 Albumin [Mass/Vol] 4.3 g/dL Normal 3.2-5.3 [facility] Comment on above: Performed By: #### C BCA, CMP, , 43-2 #### [facility] ([id number]) [address] [place] [address] 50561 ALP [Catalytic activity/Vol] 98 U/L Normal 39-130 [facility] Comment on above: Performed By: #### C BCA, CMP, , 43-2 #### [facility] ([id number]) [address] [place] [address] 51701 ALT [Catalytic activity/Vol] 17 U/L Normal 0-31 [facility] Comment on above: Performed By: #### C BCA, CMP, , 43-2 #### [facility] ([id number]) [address] [place] [address] 76347 Anion gap [Moles/Vol] 8 mmol/L Normal 5-15 [facility] Comment on above: Performed By: #### C BCA, CMP, , 5643-2 #### [facility] ([id number]) [address] [place] [address] 35810 AST [Catalytic activity/Vol] 24 U/L Normal 0-41 [facility] Comment on above: Performed By: #### C BCA, CMP, , 5643-2 #### [facility] ([id number]) [address] [place] [address] 08697 Bilirubin [Mass/Vol] 1.0 mg/dL Normal 0.3-1.2 [facility] Comment on above: Performed By: #### C BCA, CMP, , 5643-2 #### [facility] ([id number]) [address] [place] [address] 98027 Calcium [Mass/Vol] 9.3 mg/dL Normal 8.5-10.5 [facility] Comment on above: Performed By: #### C JUSTIN, CMP, , 43-2 #### [facility] ([id number]) [address] [place] [address] 26013 Chloride [Moles/Vol] 109 mmol/L Normal 98-109 [facility] Comment on above: Performed By: #### C JUSTIN CMP, , 5642- #### [facility] ([id number]) [address] [place] [address] 69446 CO2 [Moles/Vol] 24 mmol/L Normal 22-32 [facility] Comment on above: Performed By: #### C JUSTIN, CMP, , 5642-2 #### [facility] ([id number]) [address] [place] [address] 60231 Creatinine [Mass/Vol] 0.81 mg/dL Normal 0.40-1.00 [facility] Comment on above: Result Comment: METH OD TRACEABLE TO IDMS STANDARD Performed By: #### C JUSTIN CMP, , 5642-2 #### [facility] ([id number]) [address] [place] [address] 07259 eGFR (CKD-EPI) NON-RACE DEPENDENT >90 Normal >59 [facility] Comment on above: Result Comment: Reported eGFR is based on the CKD-EPI 2020 equation that does not use a race coefficient. Performed By: #### C JUSTIN, CMP, , 5643-2 #### [facility] ([id number]) [address] [place] [address] 66959 Glucose [Mass/Vol] 174 mg/dL High 65-99 [facility] Comment on above: Performed By: #### C JUSTIN, CMP, , 5643-2 #### [facility] ([id number]) [address] [place] [address] 21317 Potassium [Moles/Vol] 3.9 mmol/L Normal 3.5-5.0 [facility] Comment on above: Performed By: #### C JUSTIN, CMP, , 43-2 #### [facility] ([id number]) [address] [place] [address] 67887 Protein [Mass/Vol] 7.9 g/dL Normal 6.0-8.0 [facility] Comment on above: Performed By: #### C JUSTIN, CMP, , 5643-2 #### [facility] ([id number]) [address] [place] [address] 21170 Sodium [Moles/Vol] 141 mmol/L Normal 134-146 [facility] Comment on above: Performed By: #### C JUSTIN, CMP, , 5643-2 #### [facility] ([id number]) [address] [place] [address] 44704 Urea nitrogen [Mass/Vol] 10 mg/dL Normal 5-23 [facility] Comment on above: Performed By: #### C JUSTIN, CMP, , 5643-2 #### [facility] ([id number]) [address] [place] [address] 31108 CRP [Mass/Vol]on 10-02-2023 C REACTIVE PROTEIN 1.0 mg/dL High 0.000-0.744 [facility] Comment on above: Performed By: #### C BCA, CMP, , 5643-2 #### [facility] ([id number]) [address] [place] [address] BRAIN WO CONTon 12-26-[address] BRAIN WO CONT CT BRAIN WO [...] Valentin MD on 10/01/2023 10:42 PM Normal [facility] FREE T4on 10-02-2023 Free T4 [Mass/Vol] 0.98 ng/dL Normal 0.61-1.60 [facility] Comment on above: Performed By: #### 1 0839-9, 73721-9, TSHR, 3024-7 ####[facility] ([id number])[address] [place] [address]#### 2132-9 ####[facility] ([id number])[address] [place] [address], [address] [place] [address] 89335 Glucose Glucometer (BldC) [M ass/Vol]on 10-02-2023 Glucose [Mass/Vol] 146 mg/dL High 65-99 [facility] Glucose [Mass/Vol] 127 mg/dL High 65-99 [facility] Glucose [Mass/Vol] 136 mg/dL High 65-99 [facility] Glucose [Mass/Vol] 114 mg/dL High 65-99 [facility] Glucose [Mass/Vol] 152 mg/dL High 65-99 [facility] Glucose [Mass/Vol] 188 mg/dL High 65-99 [facility] Glucose [Mass/Vol] 221 mg/dL High 65-99 [facility] HGB A1C (GLYCO-HGB)on 2022 Glucose [Mass/Vol] 194 mg/dL Normal [facility] Comment on above: Performed By: #### 1 0839-9, 71610-4, TSHR, 3024-7 ####[facility] ([id number])[address] [place] [address] 68344#### 2132-9 ####[facility] [facility] ([id number])[address] [place] [address], [address] [address] HbA1c (Bld) [Mass fraction] 8.4 % High 4.4-5.6 [facility] Comment on above: Result Comment: NOTE ADA Guidelines Result HgbA1c Normal : less than 5.7 % Prediabetes : 5.7 % to 6.4 % Diabetes : > 6.4 % Use with caution in patients with abnormal hemoglobin variants as the half-life of red blood cells and in vivo glycation rates are affected. Performed By: #### 1 0839-9, 87785-0, TSHR, 3024-7 ####[facility] ([id number])[address] [place] [address]#### 2132-9 ####[facility] ([id number])[address] [place] [address], [address] [address] MAGNESIUMon 10-02-2023 Magnesium [Mass/Vol] 2.2 mg/dL Normal 1.8-2.6 [facility] Comment on above: Performed By: #### C BCA, CMP, 31201-0, 5643-2 #### [facility] ([id number]) [address] [place] [address]02 MR BRAIN W CONTon 10-02-2023 MR BRAIN [...] Narinder Baez on 10/02/2023 6:09 PM Normal [facility] MR BRAIN WO CONTon 3 MR [...] Myers MD on 10/02/2023 7:30 AM Normal [facility] Procalcitonin IA [Mass/Vol]o n 10-02-2023 PROCALCITONIN <0.05 Normal <0.05 [facility] Comment on above: Result Comment: NOTE <0.50 ng/mL - Low risk of severe sepsis and/or septic shock. <2.00 ng/mL - Recommend retesting within 6-24 hours. >2.00 ng/mL - High risk of sepsis and/or septic shock. Performed By: #### 1 0839-9, 67157-2, TSHR, 3024-7 ####[facility] ([id number])[address] [place] [address]#### 9 ####[facility] ([id number])[address] [facility], [address] [place] [address] THYROID PROFILEon 10-02-2023 Free T4 [Mass/Vol] 1.19 ng/dL Normal 0.61-1.60 [facility] Comment on above: Performed By: #### C BCA, CMP, 30917-6, 5643-2 #### [facility] ([id number]) [address] [place] [address] TSH 2.52 uIU/mL Normal 0.49-4.67 [facility] Comment on above: Performed By: #### C BCA, CMP, , 5643-2 #### [facility] ([id number]) [address] [place] [address] 22361 TROPONIN Ion 10-02-2023 Troponin I.cardiac [Mass/Vol] ng/mL Normal 0.00-0.04 [facility] Comment on above: Performed By: #### 1 0839-9, 53533-4, TSHR, 3024-7 ####[facility] ([id number])[address] [place] [address]#### 2131-9 ####[facility] ([id number])[address] [facility], [address] [place] [address] 31910 TSH WITH REFLEXon 10-02-2023 TSH 6.43 uIU/mL High 0.49-4.67 [facility] Comment on above: Performed By: #### 1 0839-9, 67495-1, TSHR, 3024-7 ####[facility] ([id number])[address] [place] [address]#### 2132-9 ####[facility] ([id number])[address], [address] [place] [address] URIC ACIDon 10-02-2023 Urate [Mass/Vol] 3.5 mg/dL Normal 2.6-7.2 [facility] Comment on above: Performed By: #### C BCA, CMP, 80251-6, 5643-2 #### [facility] ([id number]) [address] [place] [address]102 VITAMIN B12on 10-02-2023 Cobalamin (Vitamin B12) [Mass/Vol] 313 pg/mL Normal 180-914 [facility] Comment on above: Performed By: #### 1 0839-9, 40833-3, TSHR, 3024-7 ####[facility] ([id number])[address] [place] [address]#### 2132-9 ####[facility] ([id number])[address], [address] [place] [address] 20741 XR CHEST 1 VWon 10-02-2023 XR CHEST [...] Hayes MD on 10/02/2023 4:35 AM Normal [facility] ACETAMINOPHENon 10-01-2023 Acetaminophen [Mass/Vol] ug/mL Low 10.0-30.0 [facility] Comment on above: Result Comment: Refe rence ranges are for therapeutic limits. Performed By: #### 3 298-7, 4024-6, 39120-8 #### [facility] ([id number]) [address] [place] [address] AMMONIAon 10-01-2023 Ammonia (P) [Moles/Vol] 30 umol/L Normal 11-35 [facility] Comment on above: Performed By: #### 3 298-7, 4024-6, 81846-3 ####[facility] ([id number])[address] [place] [address] 17762 CBC AND AUTO DIFFon 10-01-20 ABSOLUTE BASOPHIL 0.1 X10E9/L Normal 0.0-0.2 [facility] Comment on above: Performed By: #### C JUSTIN CMP, , 5643-2 #### [facility] ([id number]) [address] [place] [address]686 ABSOLUTE NEUTROPHIL 9.1 X10E9/L High 1.5-6.6 [facility] Comment on above: Performed By: #### C JUSTIN, CMP, , 5643-2 #### [facility] ([id number]) [address] [place] [address]20 Basophils/100 WBC (Bld) 0.6 % Normal [facility] Comment on above: Performed By: #### C BCA, CMP, , 5643-2 #### [facility] ([id number]) [address] [place] [address]28 Eosinophils (Bld) [#/Vol] 0.1 10*3/uL Normal 0.0-0.4 [facility] Comment on above: Performed By: #### Aaron ANDERSON CMP, , 56-2 #### [facility] ([id number]) [address] [place] [address] 31368 Eosinophils/100 WBC (Bld) 1.1 % Normal [facility] Comment on above: Performed By: #### Aaron ANDERSON [facility], , 5642-2 #### [facility] ([id number]) [address] [place] [address]773 Erythrocyte distribution width (RBC) [Ratio] 13.6 % Normal 11.5-15.0 [facility] Comment on above: Performed By: #### Aaron ANDERSON [facility], , 5642- #### [facility] ([id number]) [address] [place] [address]240 Hematocrit (Bld) [Volume fraction] 43.2 % Normal 35-47 [facility] Comment on above: Performed By: #### Aaron ANDERSON [facility], , 56-2 #### [facility] ([id number]) [address] [place] [address]1976 Hemoglobin (Bld) [Mass/Vol] 14.5 g/dL Normal 11.7-15.5 [facility] Comment on above: Performed By: #### Aaron ANDERSON CMP, , 5642-2 #### [facility] ([id number]) [address] [place] [address] 15522 Lymphocytes (Bld) [#/Vol] 2.4 10*3/uL Normal 1.0-3.5 [facility] Comment on above: Performed By: #### Aaron ANDERSON CMP, , 43-2 #### [facility] ([id number]) [address] [place] [address] 07374 Lymphocytes/100 WBC (Bld) 18.7 % Normal [facility] Comment on above: Performed By: #### Aaron ANDERSON CMP, , 5642- #### [facility] ([id number]) [address] [place] [address] 84596 MCH (RBC) [Entitic mass] 28.8 pg Normal 27-34 [facility] Comment on above: Performed By: #### Aaron ANDERSON CMP, , 5642-2 #### [facility] ([id number]) [address] [place] [address]771 MCHC (RBC) [Mass/Vol] 33.5 g/dL Normal 32-36 [facility] Comment on above: Performed By: #### Aaron ANDERSON CMP, , 5642- #### [facility] ([id number]) [address] [place] [address] 10678 MCV (RBC) [Entitic vol] 86 fL Normal 80-100 [facility] Comment on above: Performed By: #### Aaron ANDERSON CMP, , 5642- #### [facility] ([id number]) [address] [place] [address] 19830 Monocytes (Bld) [#/Vol] 1.0 10*3/uL High 0-0.9 [facility] Comment on above: Performed By: #### Aaron ANDERSON CMP, , 5642-2 #### [facility] ([id number]) [address] [place] [address] 32921 Monocytes/100 WBC (Bld) 7.5 % Normal [facility] Comment on above: Performed By: #### Aaron ANDERSON CMP, , 43-2 #### [facility] ([id number]) [address] [place] [address] 28843 Neutrophils/100 WBC (Bld) 72.1 % Normal [facility] Comment on above: Performed By: #### Aaron ANDERSON CMP, , 5643-2 #### [facility] ([id number]) [address] [place] [address] Platelet mean volume (Bld) [Entitic vol] 7.5 fL Normal 7-12 [facility] Comment on above: Performed By: #### Aaron ANDERSON CMP, , 43-2 #### [facility] ([id number]) [address] [place] [address] 23533 Platelets (Bld) [#/Vol] 510 10*3/uL High 150-450 [facility] Comment on above: Performed By: #### Aaron ANDERSON CMP, , 43-2 #### [facility] ([id number]) [address] [place] [address] 53850 RBC COUNT 5.02 X10E12/L Normal 3.80-5.20 [facility] Comment on above: Performed By: #### Aaron ANDERSON, CMP, , 5643-2 #### [facility] ([id number]) [address] [place] [address]6715 WBC (Bld) [#/Vol] 12.6 10*3/uL High 4.0-11.0 [facility] Comment on above: Performed By: #### Aaron ANDERSON, CMP, , 5643-2 #### [facility] ([id number]) [address] [place] [address] 92416 COMPREHENSIVE METABOLIC PANE Artur 10-01-2023 Albumin [Mass/Vol] 4.8 g/dL Normal 3.2-5.3 [facility] Comment on above: Performed By: #### Aaron ANDERSON, CMP, , 5643-2 #### [facility] ([id number]) [address] [place] [address] 17781 ALP [Catalytic activity/Vol] 101 U/L Normal 39-130 [facility] Comment on above: Performed By: #### C BCA, CMP, , 43-2 #### [facility] ([id number]) [address] [place] [address] 30866 ALT [Catalytic activity/Vol] 17 U/L Normal 0-31 [facility] Comment on above: Performed By: #### C BCA, CMP, , 43-2 #### [facility] ([id number]) [address] [place] [address] 65531 Anion gap [Moles/Vol] 6 mmol/L Normal 5-15 [facility] Comment on above: Performed By: #### C BCA, CMP, , 43-2 #### [facility] ([id number]) [address] [place] [address] 27245 AST [Catalytic activity/Vol] 18 U/L Normal 0-41 [facility] Comment on above: Performed By: #### C BCA, CMP, , 5643-2 #### [facility] ([id number]) [address] [place] [address] 38930 Bilirubin [Mass/Vol] 0.4 mg/dL Normal 0.3-1.2 [facility] Comment on above: Performed By: #### C BCA, CMP, , 43-2 #### [facility] ([id number]) [address] [place] [address] 45417 Calcium [Mass/Vol] 9.2 mg/dL Normal 8.5-10.5 [facility] Comment on above: Performed By: #### C BCA, CMP, , 5643-2 #### [facility] ([id number]) [address] [place] [address] [place] [address] Chloride [Moles/Vol] 104 mmol/L Normal 98-109 [facility] Comment on above: Performed By: #### C SARAH ANDERSON, , 56432 #### [facility] ([id number]) [address] [place] [address] 19923 CO2 [Moles/Vol] 26 mmol/L Normal 22-32 [facility] Comment on above: Performed By: #### C SARAH ANDERSON, , 5642- #### [facility] ([id number]) [address] [place] [address] 06272 Creatinine [Mass/Vol] 0.88 mg/dL Normal 0.40-1.00 [facility] Comment on above: Result Comment: METH OD TRACEABLE TO IDMS STANDARD Performed By: #### C SARAH ANDERSON, , 5642-11 #### [facility] ([id number]) [address] [place] [address] 45758 GFR/1.73 sq M.predicted among non-blacks MDRD (S/P/Bld) [Vol rate/Area] 84 mL/min/{1.73_m2} Normal >59 [facility] Comment on above: Result Comment: Reported eGFR is based on the CKD-EPI 2020 equation that does not use a race coefficient. Performed By: #### C SARAH ANDERSON, , 5642-11 #### [facility] ([id number]) [address] [place] [address] 30216 Glucose [Mass/Vol] 247 mg/dL High 65-99 [facility] Comment on above: Performed By: #### C SARAH ANDERSON, , 2 #### [facility] ([id number]) [address] [place] [address] 84747 Potassium [Moles/Vol] 4.0 mmol/L Normal 3.5-5.0 [facility] Comment on above: Performed By: #### C BCA, CMP, 42090-8, 5643-2 #### [facility] ([id number]) [address] [place] [address] 64117 Protein [Mass/Vol] 8.2 g/dL High 6.0-8.0 [facility] Comment on above: Performed By: #### C BCA, CMP, , 5643-2 #### [facility] ([id number]) [address] [place] [address] 49104 Sodium [Moles/Vol] 136 mmol/L Normal 134-146 [facility] Comment on above: Performed By: #### C BCA, CMP, , 5643-2 #### [facility] ([id number]) [address] [place] [address] 32379 Urea nitrogen [Mass/Vol] 12 mg/dL Normal 5-23 [facility] Comment on above: Performed By: #### C BCA, [facility], , 5643-2 #### [facility] ([id number]) [address] [place] [address] [place] [address] DRUG SCREEN, URINEon 023 AMPHETAMINE/METHAMP Negative Normal NEG [facility] Comment on above: Result Comment: AMPH /METH screening cut off = 1000 ng/mL Performed By: #### D STEELE #### [facility] ([id number]) [address] [place] [address] [place] [address] BARBITURATES Negative Normal NEG [facility] Comment on above: Result Comment: Kelsi iturates screening cut off value = 200 ng/mL Performed By: #### D STEELE #### [facility] ([id number]) [address] [place] [address] [place] [address] BENZODIAZEPINES Negative Normal NEG [facility] Comment on above: Result Comment: Simeon odiazepines screening cut off value = 200 ng/mL Performed By: #### D STEELE #### [facility] ([id number]) [address] [place] [address] 69682 CANNABINOIDS Negative Normal [facility] Comment on above: Result Comment: Carlos abinoids/THC screening cut off value = 50 ng/mL Performed By: #### D STEELE #### [facility] ([id number]) [address] [place] [address] 85295 COCAINE METABOLITE Negative Normal NEG [facility] Comment on above: Result Comment: Coca ine screening cut off value = 300 ng/mL Performed By: #### D STEELE #### [facility] ([id number]) [address] [place] [address] 40815 ECSTASY Negative Normal [facility] Comment on above: Result Comment: Ecst asy screening cut off value = 500 ng/mL This report is intended for use in clinical monitoring or management of patients. Performed By: #### D STEELE #### [facility] ([id number]) [address] [place] [address] 21787 METHADONE Negative [facility] Comment on above: Result Comment: Meth adone screening cut off value = 300 ng/mL. Performed By: #### D STEELE #### [facility] ([id number]) [address] [place] [address] 57746 OPIATES Negative Normal [facility] Comment on above: Result Comment: Opia chu screening cut off value = 300 ng/mL NOTE: This test is used for the detection of codeine, hydrocodone (>1000 ng/mL), morphine and hydromorphone (>900 ng/mL) in urine. Performed By: #### D STEELE #### [facility] ([id number]) [address] [place] [address] [place] [address] OXYCODONE Negative Normal NEG [facility] Comment on above: Result Comment: Oxyc odone screening cut off value = 300 ng/mL NOTE: This test is used for the detection of oxycodone and oxymorphone in urine. Performed By: #### D STEELE #### [facility] ([id number]) [address] [place] [address] 39198 PHENCYCLIDINE Negative Normal NEG [facility] Comment on above: Result Comment: Phen cyclidine screening cut off value = 25 ng/mL Performed By: #### D STEELE #### [facility] ([id number]) [address] [place] [address] 38416 ETHANOLon 10-01-2023 Ethanol [Mass/Vol] mg/dL Normal 0.00-0.08 [facility] Comment on above: Result Comment: This report is intended for use in clinical monitoring or management of patients. Performed By: #### C SARAH ANDERSON, 74428-0, 5643-2 #### [facility] ([id number]) [address] [place] [address] 30052 Glucose Glucometer (BldC) [M ass/Vol]on 10-01-2023 Glucose [Mass/Vol] 237 mg/dL High 65-99 [facility] MAGNESIUMon 10-01-2023 Magnesium [Mass/Vol] 2.1 mg/dL Normal 1.8-2.6 [facility] Comment on above: Performed By: #### C JUSTIN CMP, 64019-5, 5643-2 #### [facility] ([id number]) [address] [place] [address] 89269 Salicylates [Mass/Vol]on SALICYLATE <4.0 Normal 2.0-25.0 [facility] Comment on above: Result Comment: Refe rence ranges are for therapeutic limits. Performed By: #### 3 298-7, 4024-6, 32986-6 #### [facility] ([id number]) [address] [place] [address] 42361 URN MACROSCOPIC NURon 2022 BILIRUBIN SAMMY Negative Normal NEG [facility] Comment on above: Performed By: #### N UM #### [facility] ([id number]) [address] [place] [address] 33107 BLOOD/HGB SAMMY Negative Normal NEG [facility] Comment on above: Performed By: #### N UM #### [facility] ([id number]) [address] [place] [address] 54648 GLUCOSE SAMMY 500 mg/dL Abnormal NEG [facility] Comment on above: Performed By: #### N UM #### [facility] ([id number]) [address] [place] [address] 96204 KETONES SAMMY Negative Normal NEG [facility] Comment on above: Performed By: #### N UM #### [facility] ([id number]) [address] [place] [address] [place] [address] LEUKOCYTE ESTERASE SAMMY Negative Normal NEG [facility] Comment on above: Performed By: #### N UM #### [facility] ([id number]) [address] [place] [address] 32833 NITRITE SAMMY Negative Normal NEG [facility] Comment on above: Performed By: #### N UM #### [facility] ([id number]) [address] [place] [address] 54672 PH SAMMY 7.0 Normal 5.0-8.5 [facility] Comment on above: Performed By: #### N UM #### [facility] ([id number]) [address] [place] [address] 52762 PROTEIN SAMMY Negative Normal NEG [facility] Comment on above: Performed By: #### N UM #### [facility] ([id number]) [address] [place] [address] [place] [address] SPECIFIC GRAVITY SAMMY 1.010 Normal 1.003-1.035 [facility] Comment on above: Performed By: #### N UM #### [facility] ([id number]) [address] [facility], [place] [address] UROBILINOGEN SAMMY 0.2 eu/dL Normal <1.1 [facility] Comment on above: Performed By: #### N UM #### [facility] ([id number]) [address] [facility], [place] [address] XR SHOULDER LT MIN 2 VWSon 1 [...] Johnson MD on 09/24/2023 10:24 AM Normal [facility] HERPES SIMPLEX VIRUS (HSV) C ULTUREon 08-26-2021 HSV Culture/Type Comment Abnormal [facility] Comment on above: Result Comment: Posi tive for Herpes simplex virus type-2. Typing was confirmed by monoclonal antibody microscopic immunofluorescence. Performed By: #### H SVCUL #### [facility] [address] [place] [address] Dr. Gianfranco Orta AMYLASEon 08-21-2021 AMYL <30 Critically low 31-110 [facility] Comment on above: Performed By: #### A ALEXIA WALKER #### [facility] [address] [place] [address] Dr. Gianfranco Orta CBC AUTO DIFFon 08-21-2021 BASO # 0.1 103/ul Normal 0.0-0.1 [facility] Comment on above: Performed By: #### C BC #### [facility] [address] [place] [address] Dr. Gianfranco Orta Basophils/100 WBC (Bld) 0.5 % Normal 0.2-2.0 [facility] Comment on above: Performed By: #### C BC #### [facility] [address] [address] [address] Gianfranco Orta EO # 0.2 103/ul Normal 0.0-0.7 [facility] Comment on above: Performed By: #### C BC #### [facility] [address] [place] [address] Dr. Gianfranco Orta Eosinophils/100 WBC (Bld) 2.3 % Normal 0.9-7.0 [facility] Comment on above: Performed By: #### C BC #### [facility] [address] [place] [address] Dr. Gianfranco Orta Erythrocyte distribution width (RBC) [Ratio] 16.1 % Critically high 11.0-15.0 [facility] Comment on above: Performed By: #### C BC #### [facility] [address] [place] [address] Dr. Gianfranco Orta Hematocrit (Bld) [Volume fraction] 35.3 % Critically low 36.0-48.0 [facility] Comment on above: Performed By: #### C BC #### [facility] [address] [place] [address] Dr. Gianfranco Orta Hemoglobin (Bld) [Mass/Vol] 11.3 g/dL Critically low 12.0-16.0 [facility] Comment on above: Performed By: #### C BC #### [facility] [address] [place] [address] Dr. Gianfranco Orta IG # 0.07 10e3/ul Critically high 0.00-0.03 [facility] Comment on above: Performed By: #### C BC #### [facility] [address] [place] [address] Dr. Gianfranco Orta IG % 0.7 % Critically high 0.0-0.5 [facility] Comment on above: Performed By: #### C BC #### [facility] [address] [place] [address] Dr. Gianfranco Orta LYMPH # 2.6 103/ul Normal 1.2-3.8 [facility] Comment on above: Performed By: #### C BC #### [facility] [address] [place] [address] Dr. Gianfranco Orta Lymphocytes/100 WBC (Bld) 26.7 % Normal 20.5-60.0 [facility] Comment on above: Performed By: #### C BC #### [facility] [address] [place] [address] Dr. Gianfranco Orta MANUAL DIFF REQ NO Normal [facility] Comment on above: Performed By: #### C BC #### [facility] [address] [place] [address] Dr. Gianfranco Orta MCH (RBC) [Entitic mass] 26.1 pg Critically low 26.7-34.0 [facility] Comment on above: Performed By: #### C BC #### [facility] [address] [place] [address] Dr. Gianfranco Orta MCHC (RBC) [Mass/Vol] 32.0 g/dL Normal 29.9-35.2 [facility] Comment on above: Performed By: #### C BC #### [facility] [address] [place] [address] Dr. Gianfranco Orta MCV (RBC) [Entitic vol] 81.5 fL Normal 81.0-99.0 [facility] Comment on above: Performed By: #### C BC #### [facility] [address] [place] [address] Dr. Gianfranco Orta MONO # 0.5 103/ul Normal 0.3-0.8 [facility] Comment on above: Performed By: #### C BC #### [facility] [address] [place] [address] Dr. Gianfranco Orta Monocytes/100 WBC (Bld) 5.2 % Normal 1.7-12.0 [facility] Comment on above: Performed By: #### C BC #### [facility] [address] [place] [address] Dr. Gianfranco Orta NEUT # 6.4 103/ul Normal 1.4-6.5 [facility] Comment on above: Performed By: #### C BC #### [facility] [address] [place] [address] Dr. Gianfranco Orat Neutrophils/100 WBC (Bld) 64.6 % Normal 43.0-75.0 [facility] Comment on above: Performed By: #### C BC #### [facility] [address] [place] [address] Dr. Gianfranco Orta Platelet mean volume (Bld) [Entitic vol] 10.8 fL Normal 9.5-13.5 [facility] Comment on above: Performed By: #### C BC #### [facility] [address] [place] [address] Dr. Gianfranco Orta PLT 322 103/ul Normal 150-450 [facility] Comment on above: Performed By: #### C BC #### [facility] [address] [place] [address] Dr. Gianfranco Orta RBC 4.33 106/ul Normal 4.20-5.40 [facility] Comment on above: Performed By: #### C BC #### [facility] [address] [place] [address] Dr. Gianfranco Orta WBC 9.9 103/ul Normal 4.0-11.0 [facility] Comment on above: Performed By: #### C BC #### [facility] [address] [place] [address] Dr. Gianfranco Orta CULTURE URINEon 08-21-2021 CULTURE URINE Culture Observations : LIGHT GROWTH OF MIXED GENITAL ROSANNE. NO POTENTIAL PATHOGENS SEEN. Normal [facility] Comment on above: Performed By: #### U RCX #### [facility] [address] [place] [address] Dr. Gianfranco Orta ER URINE PROFILEon Bilirubin Ql (U) Negative Normal NEGATIVE [facility] Comment on above: Performed By: #### U MICRO, ERUR #### [facility] [address] [place] [address] Dr. Gianfranco Orta Clarity (U) CLEAR Normal CLEAR [facility] Comment on above: Performed By: #### U MICRO, ERUR #### [facility] [address] [place] [address] Dr. Gianfranco Orta Color (U) YELLOW Normal YELLOW [facility] Comment on above: Performed By: #### U MICRO, ERUR #### [facility] [address] [address] [address] Gianfranco MEDINA A micrscopic examination will be performed if indicated. Normal [facility] Comment on above: Performed By: #### U MICRO, ERUR #### [facility] [address] [address] [address] Gianfranco Orta Glucose Ql (U) 1000 mg/dl Abnormal NEGATIVE [facility] Comment on above: Performed By: #### U MICRO, ERUR #### [facility] [address] [address] [address] Gianfranco Orta Hemoglobin Ql (U) TRACE-INTACT Abnormal NEGATIVE [facility] Comment on above: Performed By: #### U MICRO, ERUR #### [facility] [address] [place] [address] Dr. Gianfranco Orta Ketones Ql (U) TRACE Abnormal NEGATIVE [facility] Comment on above: Performed By: #### U MICRO, ERUR #### [facility] [address] [address] [address] Gianfranco Orta LEUKOCYTES Negative Normal NEGATIVE [facility] Comment on above: Performed By: #### U MICRO, ERUR #### [facility] [address] [place] [address] Dr. Ginafranco Orta Nitrite Ql (U) Negative Normal NEGATIVE [facility] Comment on above: Performed By: #### U MICRO, ERUR #### [facility] [address] [address] [address] Gianfranco Orta pH (U) 6.0 [pH] Normal 5-9 [facility] Comment on above: Performed By: #### U MICRO, ERUR #### [facility] [address] [address] [address] Gianfranco Orta SPEC GRAVITY 1.010 Normal 1.005-<=1.025 [facility] Comment on above: Performed By: #### U MICRO, ERUR #### [facility] [address] [address] [address] Gianfranco Orta UA PROTEIN TRACE Normal NEGATIVE/ TRACE [facility] Comment on above: Performed By: #### U MICRO, ERUR #### [facility] [address] [place] [address] Dr. Gianfranco Orta UR MICRO IND INDICATED Normal [facility] Comment on above: Performed By: #### U MICRO, ERUR #### [facility] [address] [place] [address] Dr. Gianfranco Orta Urobilinogen Qn (U) 1.0 {Gabriela'U}/dL Normal 0.2 - 1. 0 [facility] Comment on above: Performed By: #### U MICRO, ERUR #### [facility] [address] [place] [address] Dr. Gianfranco Orta LIPASEon 08-21-2021 Lipase [Catalytic activity/Vol] 210.0 U/L Normal 23.0-300.0 [facility] Comment on above: Performed By: #### A MY, LIPA #### [facility] [address] [place] [address] Dr. Gianfranco Orta PREG HCG QUALon 08-21-2021 , QUAL Negative Normal NEGATIVE [facility] Comment on above: Performed By: #### P REG #### [facility] [address] [place] [address] Dr. Gianfranco Orta PROF 14(COMP METB)on 021 Albumin [Mass/Vol] 2.9 g/dL Critically low 3.5-5.0 [facility] Comment on above: Performed By: #### C MP #### [facility] [address] [place] [address] Dr. Gianfranco Orta Albumin/Globulin [Mass ratio] 0.7 {ratio} Normal [facility] Comment on above: Performed By: #### C MP #### [facility] [address] [place] [address] Dr. Gianfranco Orta ALP [Catalytic activity/Vol] 136 U/L Critically high 38-126 [facility] Comment on above: Performed By: #### C MP #### [facility] [address] [place], [place] [id number] Dr. Gianfranco Orta ALT [Catalytic activity/Vol] 384 U/L Critically high 9-52 [facility] Comment on above: Performed By: #### C MP #### [facility] [address] [place] [address] Dr. Gianfranco Orta Anion gap [Moles/Vol] 12.7 mmol/L Normal [facility] Comment on above: Performed By: #### C MP #### [facility] [address] [address] [address] Gianfranco Orta AST [Catalytic activity/Vol] 32 U/L Normal 14-36 [facility] Comment on above: Performed By: #### C MP #### [facility] [address] [place] [address] Dr. Gianfranco Orta Bilirubin [Mass/Vol] 0.5 mg/dL Normal 0.2-1.3 [facility] Comment on above: Performed By: #### C MP #### [facility] [address] [place] [address] Dr. Gianfranco Orta Calcium [Mass/Vol] 8.6 mg/dL Normal 8.4-10.2 [facility] Comment on above: Performed By: #### C MP #### [facility] [address] [place] [address] Dr. Gianfranco Orta Chloride [Moles/Vol] 100 mmol/L Normal 98-107 [facility] Comment on above: Performed By: #### C MP #### [facility] [address] [place] [address] Dr. Gianfranco Orta CO2 [Moles/Vol] 26.1 mmol/L Normal 22.0-30.[address] [facility] Comment on above: Performed By: #### C MP #### [facility] [address] [place] [address] Dr. Gianfranco Orta Creatinine [Mass/Vol] 0.74 mg/dL Normal 0.52-1.04 [facility] Comment on above: Performed By: #### C MP #### [facility] [address] [place] [address] Dr. Gianfranco Orta EGFR-AF VINCENTIAN >60 Normal >=60 [facility] Comment on above: Performed By: #### C MP #### [facility] [address] [address] [address] Gianfranco Orta EGFR-NON AF VINCENTIAN >60 Normal >=60 [facility] Comment on above: Performed By: #### C MP #### [facility] [address] [address] [address] Gianfranco Orta Globulin (S) [Mass/Vol] 4.0 g/dL Normal [facility] Comment on above: Performed By: #### C MP #### [facility] [address] [address] [address] Gianfranco Orta Glucose [Mass/Vol] 365 mg/dL Critically high 74-106 [facility] Comment on above: Performed By: #### C MP #### [facility] [address] [address] [address] Gianfranco Orta Potassium [Moles/Vol] 3.8 mmol/L Normal 3.4-5.0 [facility] Comment on above: Performed By: #### C MP #### [facility] [address] [address] [address] Gianfranco Orta Protein [Mass/Vol] 6.9 g/dL Normal 6.1-8.2 [facility] Comment on above: Performed By: #### C MP #### [facility] [address] [address] [address] Gianfranco Orta Sodium [Moles/Vol] 135 mmol/L Critically low 137-145 [facility] Comment on above: Performed By: #### C MP #### [facility] [address] [address] [address] Gianfranco Orta Urea nitrogen [Mass/Vol] 7.0 mg/dL Normal 7.0-17.0 [facility] Comment on above: Performed By: #### C MP #### [facility] [address] [address] [address] Gianfranco Orta Urea nitrogen/Creatinine [Mass ratio] 9.5 mg/mg Normal [facility] Comment on above: Performed By: #### C MP #### [facility] [address] [place] [address] Dr. Gianfranco Orta URINE MICROSCOPIC ONLYon BACTERIA SMALL Abnormal NONE SEEN [facility] Comment on above: Performed By: #### U MICRO, ERUR #### [facility] [address] [place] [address] Dr. Gianfranco Orta Bacteria identified Cx Nom (U) INDICATED Normal [facility] Comment on above: Performed By: #### U MICRO, ERUR #### [facility] [address] [place] [address] Dr. Gianfranco Orta CAST NONE SEEN Normal NONE SEEN [facility] Comment on above: Performed By: #### U MICRO, ERUR #### [facility] [address] [place] [address] Dr. Gianfranco Orta Crystals LM Nom (Urine sed) NONE SEEN Normal NONE SEEN [facility] Comment on above: Performed By: #### U MICRO, ERUR #### [facility] [address] [place] [address] Dr. Gianfranco Orta Epithelial cells LM Ql (Urine sed) FEW Abnormal NONE SEEN /RARE [facility] Comment on above: Performed By: #### U MICRO, ERUR #### [facility] [address] [place] [address] Dr. Gianfranco Orta MUCOUS NONE SEEN Normal NONE SEEN [facility] Comment on above: Performed By: #### U MICRO, ERUR #### [facility] [address] [address] [address] Gianfranco Orta RBC 5-10 Abnormal 0-2 [facility] Comment on above: Performed By: #### U MICRO, ERUR #### [facility] [address] [place] [address] Dr. Gianfranco Orta WBC 0-2 Abnormal NONE SEEN [facility] Comment on above: Performed By: #### U MICRO, ERUR #### [facility] [address] [place] [address] Dr. Gianfranco Orta XR HAND RIGHT (MIN [...] Chikis Somers MD 03/19/18 Final result Normal [facility] XR WRIST RIGHT (MIN 3 [...] Chikis Somers MD 03/19/18 Final result Normal [facility] Vital Signs Date Time Vital Sign Value Performing Clinician Inai kameron 11-27-2023 09:05-0500 Body height 157.5 cm Juan Franco PA-C Work Phone: [facility] [employer] [facility] 11-27-2023 09:05-0500 Body mass index (BMI) [Ratio] 28.17 kg/m2 Juan Franco PA-C Work Phone: [facility] [employer] [facility] 11-27-2023 09:05-0500 Body weight 69.85 kg Juan Franco PA-C Work Phone: [facility] [employer] [facility] 11-27-2023 09:05-0500 Diastolic blood pressure 64 mm[Hg] [facility]C [facility] 11-27-2023 09:05-0500 Heart rate 90 /min Juan Franco PA-C [facility] 11-27-2023 09:05-0500 Systolic blood pressure 114 mm[Hg] Juan Franco PA-C Work Phone: [employer] 11-16-2023 11:20-0500 Body height 157.5 cm Juve ELARA Pharmaceuticalseleni DO Work Phone: [facility] [employer] 11-16-2023 11:20-0500 Body mass index (BMI) [Ratio] 28.17 kg/m2 Juve Blaze healthyanciDr. Jerry's Smooth Moveeleni DO Work Phone: [facility] [employer] 11-16-2023 11:20-0500 Body weight 69.85 kg Juve ELARA Pharmaceuticalseleni DO Work Phone: [facility] Healthcare Encounters Encounter Date Encounter Type Care Provider Facility Start: 04-28-2024 End: 04-28-2024 ambulatory SUSAN LESTER Not Available Start: 04-17-2024 End: 04-17-2024 ambulatory LEXY A MICHAELHER Not Available Start: 02-11-2024 End: 02-11-2024 ambulatory SUSAN LESTER [...] Available Start: 01-16-2024 End: 01-16-2024 ambulatory LEXY A RUSHER Not Available Start: 01-15-2024 End: 01-15-2024 ambulatory JANETH COLEMAN Not Available Start: 01-11-2024 End: 01-11-2024 ambulatory [...] Available Start: 11-27-2023 End: 11-27-2023 ambulatory JUAN C [facility] Start: 11-27-2023 End: 11-27-2023 Office outpatient visit 25 minutes Juan C Salvador PA-C Work Phone: [facility] Comment on above: Altered mental statu s, unspecified altered mental status type (Primary Dx); Other cerebral palsy ([facility]); Anxiety and depression; Bipolar affective disorder, remission status unspecified ([facility]) Start: 11-23-2023 End: 11-23-2023 Emergency department patient visit [facility] Start: 11-21-2023 End: 11-21-2023 Emergency department patient visit [facility] Start: 11-19-2023 Chart abstracting Gerardo atwood PT Work Phone: [facility] Start: 11-16-2023 Bamboo flowsheet Juve S Bieden bach DO Work Phone: [facility] Start: 11-16-2023 Bamboo flowsheet Juve S Bieden bach DO Work Phone: [facility] Start: 11-16-2023 End: 11-16-2023 ambulatory JUVE S BIEDENELENI Not Available Start: 11-16-2023 End: 11-16-2023 Office outpatient new 45 minutes Juve S Biedenbach DO Work Phone: [facility] Comment on above: Parotid mass (Primar y Dx); Tobacco abuse; Hearing loss, unspecified hearing loss type, unspecified laterality Start: 11-06-2023 End: 11-06-2023 ambulatory MATTHEW GIRON Not Available Start: 11-04-2023 End: 11-04-2023 Emergency department patient visit [facility] Start: 10-17-2023 Telephone encounter Reema Amaya [facility] Comment on above: Neurology Referral Start: 10-02-2023 End: 10-04-2023 ambulatory SHIRA Quinn [facility] Start: 10-02-2023 End: 10-04-2023 ambulatory VICKY Quinn [facility] Start: 10-02-2023 End: 10-04-2023 ambulatory VICKY Quinn [facility] Start: 10-01-2023 End: 10-04-2023 ambulatory VICKY M [facility] Start: 10-01-2023 End: 10-04-2023 Emergency department patient visit [facility] Start: 09-24-2023 End: 09-25-2023 Emergency department patient visit [facility] Start: 09-11-2023 End: 09-11-2023 ambulatory MATTHEW GIRON Not Available Start: 12-06-2022 ambulatory Solo Navarrete Facility:[facility] Start: 08-21-2021 End: 08-21-[address] DIANELYS MARTINEZ Facility:[facility] Start: 03-09-2019 [facility] Start: 09-21-2018 End: 09-21-2018 Emergency department patient visit BRENDA Delvalle [facility] Start: 03-19-2018 End: 03-19-2018 Emergency department patient visit ROWAN SUNKER [facility] Procedures Date Procedure Procedure Detail Performing Clinician Start: 11-27-2023 Adult depression scr eening assessment Juan Franco PA-C Work Phone: Start: 04-19-2023 Microscopic observat ion [Identifier] in Cervix by Cyto stain Reema Amaya Start: 04-22-2019 Microalbumin [Mass/v olume] in Urine by Test strip Reema Amaya Start: 03-19-2018 VELCRO WRIST SPLINT BRA DY CASANOVA Start: 03-19-2018 Radex wrist complete minimum 3 views ROWAN CASANOVA Start: 03-19-2018 Radex hand minimum 3 views ROWAN CASANOVA Plan of Treatment Date Care Activity Detail Author Start: 10-24-2031 DTaP,Tdap and Td Vaccines (3 - Td or Tdap) DTaP,Tdap and Td Vaccines (3 - Td or Tdap) [facility] Start: 04-19-2026 Screening for malignant neoplasm of cervix Pap Smear [facility] Start: 11-27-2024 Adult BMI Screening Adult BMI Screen ing [facility] Start: 11-27-2024 Depression Screening Depression Scre ening [facility] Start: 11-27-2024 Tobacco Screening Tobacco Screening [facility] Start: 11-03-2024 Adult BMI Screening Adult BMI Screen ing [facility] Start: 11-03-2024 Tobacco Screening Tobacco Screening [facility] Start: 06-12-2024 End: 06-12-2024 Patient encounter procedure 06/12/2024 9:15 AM EDT Office Visit Leelee L B[place] [facility] [address] [place] [phone] You Patel MD [address] [place] [address] [address] [place] [address] Leelee L [facility] Start: 06-12-2024 End: 06-12-2024 ambulatory 06/12/2024 8:50 AM EDT Support Visit Leelee Meier [facility] [address] [place] [phone] Leelee L [facility] Start: 05-23-2024 End: 05-23-2024 Patient encounter procedure 05/23/2024 1:00 PM EDT Office Visit [facility]FF[facility] [address] [place] [phone] Juve Garrett DO [address] [place] [address] [facility] Start: 01-29-2024 End: 01-29-2024 Patient encounter procedure 01/29/2024 9:30 AM EDT Office Visit [facility] [address] [place] [phone] Juan Franco, PAAndreyC [address] [facility] [place] [phone] [facility] Start: 01-15-2024 End: 01-15-2024 Clinical Support 01/15/2024 2:00 PM EDT Clinical [facility] [address] [facility] [place] [address] Janeth Coleman, [facility] [address] [place] [address] [facility] Start: 12-13-2023 End: 12-13-2023 ambulatory 12/13/2023 9:15 AM EST Support Visit Leelee L [facility] [address] [place] [phone] Leelee L [facility] Start: 12-04-2023 End: 12-04-2023 Patient encounter procedure 12/04/2023 9:15 AM EST Office Visit [facility] [address] [place] [phone] Matthew Giron, JACQUE [address] [address] [facility] Start: 11-27-2023 End: 11-27-2023 Patient encounter procedure 11/27/2023 3:30 PM EST Procedure Visit [facility] [address] [place] [phone] Lexy Pascual DPM [address] [facility] [place], [place] [phone] [facility] Start: 11-27-2023 End: 11-27-2023 Patient encounter procedure 11/27/2023 9:30 AM EST Office Visit [facility] [address] [facility] [facility] [place] [phone] Juan Franco, MAVIS [address] [place] [address] [facility] Start: 11-19-2023 End: 11-19-2023 ambulatory 11/19/2023 9:30 AM EST Evaluation [facility] [address] [place] [phone] Gerardo Pete, PT [address] [place] [address] [facility] Start: 06-08-2023 Influenza vaccination Influenza Vacc ine [facility] Start: 04-22-2020 Urine screening for protein Urine Microalbumin [facility] Start: 1999 Adult BMI Follow Up Plan Adult BMI Follow Up Plan [facility] Start: 1999 Diabetic foot examination Diabetic Foot Exam [facility] Start: 1993 Depression Screening Depression Scre ening [facility] Start: 1981 Glaucoma screening Diabetic Op hthalmology Exam [facility] Start: 1981 Tobacco Counseling Tobacco Counselin g [facility] End: 11-27-2024 Sleep Deprived EEG Sleep Deprived EEG Neurology Routine Altered mental status, unspecified altered mental status type 1 Occurrences starting 11/27/2023 until 11/27/2024 [facility] Work Phone: Comment on above: 1 Occurrences starti ng 11/27/2023 until 11/27/2024 Immunizations Immunization Date Immunization Notes Care Provider Fa cililainey 10-24-2021 tetanus toxoid, reduced diphtheria toxoid, and acellular pertussis vaccine, adsorbed [facility] 08-01-2011 influenza, seasonal, injectable Juve Garrett DO Work Phone: [facility] 08-01-2011 influenza virus vaccine, unspecified formulation [facility] 04-11-2010 tetanus toxoid, reduced diphtheria toxoid, and acellular pertussis vaccine, monica Garrett DO Work Phone: [facility] Payers Date Payer Category Payer Medicare [id number] 2022 Medicare [id number] 2022 Medicare [id number] 2017 Medicaid [id number] 2017 Medicare [id number] 1981 Unknown [id number] 2.16.8 40.1.958740.3.579.2.173 1981 Unknown [id number] 2.16.8 40.1.098690.3.579.2.173 1981 Unknown [id number] 2.16.8 40.1.228235.3.579.2.173 1981 Unknown [id number] 2.16.84 0.1.516452.3.579.2.593 1981 Unknown [id number] 2.16.8 40.1.975264.3.579.2.1286 1981 Unknown [id number] 2.16.8 40.1.756000.3.579.2.1286 1981 Unknown [id number] 2.16.8 40.1.074945.3.579.2.6 1981 Unknown [id number] 2.16.8 40.1.947142.3.579.2.1286 1981 Unknown [id number] 2.16.84 0.1.138077.3.579.2.128 1981 Unknown [id number] 2.16.84 0.1.807291.3.579.2.1286 1981 Unknown [id number] 2.16.84 0.1.496189.3.579.2.128 1981 Unknown [id number] 2.16.84 0.1.367615.3.579.2.1285 1981 Unknown [id number] 2.16.84 0.1.492707.3.579.2.1285 1981 Unknown [id number] 2.16.84 0.1.770669.3.579.2.1285 1981 Unknown [id number] 2.16.84 0.1.253637.3.579.2.1285 1981 Unknown [id number] 2.16.840 .1.106910.3.579.2.1285 1981 Unknown [id number] 2.16.840. 1.948851.3.579.2.1285 1981 Unknown [id number] 2.16.84 0.1.742231.3.579.2.1258 1981 Unknown [id number] 2.16.84 0.1.464899.3.579.2.1258 1981 Unknown [id number] 2.16.84 0.1.536769.3.579.2.1258 1981 Unknown [id number] 2.16.84 0.1.363424.3.579.2.1258 1981 Unknown [id number] 2.16.84 0.1.949992.3.579.2.1258 1981 Unknown [id number] 2.16.84 0.1.899380.3.579.2.1258 1981 Unknown [id number] 2.16.84 0.1.351679.3.579.2.1258 1981 Unknown [id number] 2.16.84 0.1.840148.3.579.2.1258 1981 Unknown [id number] 2.16.84 0.1.691085.3.579.2.1258 1981 Unknown [id number] 2.16.84 0.1.234544.3.579.2.1258 1981 Unknown [id number] 2.16.84 0.1.902930.3.579.2.1259 1981 Unknown [id number] 2.16.84 0.1.877398.3.579.2.9 1981 Unknown [id number] 2.16.84 0.1.212485.3.579.2.9 1981 Unknown [id number] 2.16.84 0.1.788791.3.579.2.1258 1981 Unknown [id number] 2.16.84 0.1.965588.3.579.2.9 1981 Unknown [id number] 2.16.84 0.1.431072.3.579.2.1258 1981 Unknown [id number] 2.16.84 0.1.966830.3.579.2.9 1981 Unknown [id number] 2.16.84 0.1.482971.3.579.2.1258 1981 Unknown [id number] 2.16.84 0.1.922961.3.579.2.9 1981 Unknown [id number] 2.16.84 0.1.144498.3.579.2.9 1981 Unknown [id number] 2.16.840 .1.875516.3.579.2.1259 1959 Medicaid [id number] 1958 Medicare [id number] Social History Date Type Detail Facility Start: 10-08-1999 End: 07-04-2023 Tobacco smoking status HIIS Smokes tobacco daily [facility] [employer] Start: 10-08-1999 History of tobacco use [facility] Start: 10-21-2020 End: 07-04-2023 Cigarettes smoked current (pack per day) - [facility]orted 0.5 [facility] Start: 06-19-2023 End: 07-04-2023 Tobacco use and exposure Smokeless tobacco non-user [facility] [employer] [facility] Start: 10-02-2023 End: 11-27-2023 Alcohol intake Current non-drinker of alcohol (finding) [facility] Start: 10-21-2020 End: 11-03-[address] [facility] Are you worried or concerned that in the next two months you may not have stable housing that you own, rent or stay in as a part of a household? No [facility] Start: 1981 Sex Assigned At Not on file P [facility] Start: 11-14-2023 End: 11-16-2023 Alcohol intake Ex-drinker (finding) [facility] Start: 06-19-2023 Tobacco Comment Smokes 6-10 ci gs per day [facility] Start: 08-17-2023 Alcohol Comment caffeine intak e: 3-4 cups per day [facility] History of Present illness Narrative 11-27-2023 Juan Franco PA-C - 11/27/2023 9:30 AM EST Note Date & Type Note Facility 11-27-2023 History of Presen t illness Narrative [facility] Neurology Office Note 11/27/2023 9:19 AM Patient info: Lindsey Mcintyre is a 43 y.o. female Account No.: [id number] Acct: : 1980 PCP: KADI HERMOSILLO DO [...] of significant head injury/trauma: (-) hx of SLIP COVER MAKER infection: (+) hx of stroke/cerebrovascular malformation: reported [...] disorder, cerebral palsy, COPD, who presented to [facility] 10/01/23 with reports of not feeling well. Patient was unable to tell ED physician exactly what was wrong but did c/o of an upset stomach. She did deny N/V/D, headache, abdominal pain, SOB or fever. Patient reported that she did not take her medications yesterday because she was too busy cooking and doing things for Daron. Family was with her and reported that [...] her name and knows she is at [facility]. She did state that she remembers cooking [...] PA-C 11/28/23 [address] in [address] encounter [facility] History of Present illness Narrative [...] 03/09/2019 Past Medical History: Diagnosis Date Asthma ([facility]) Bandemia 08/02/2023 Cerebral palsy ([facility]) COPD (chronic obstructive pulmonary disease) ([facility]) Delirium 10/01/2023 Depression ([facility]) Diabetes ([facility]) GERD (gastroesophageal reflux disease) Heart murmur HLD (hyperlipidemia) ([facility]) Hx of tear of meniscus of knee joint Hypertension ([facility]) Knee pain, left Lesion of parotid gland 11/14/2023 Migraine headache ([facility]) Thrombocytosis 08/02/2023 Current Outpatient Medications: albuterol (2.5 [...] Do not swallow.., Disp: , Rfl: HYDROcodone-acetaminophen ([place]) 5-325 MG tablet, , Disp: , Rfl: [...] SURGERY Left 07/17/2023 LT KNEE SCOPE- DR BLACKBURNANIC KNEE SURGERY Left 12/08/2019 LT KNEE SCOPE PER DR COCHRAN ROTATOR CUFF REPAIR Left 2011 SHOULDER ARTHROSCOPY Left 2007 LT SHOULDER SURGERY PER DR COCHRAN Social [...] 10/17/2023 12:45 PM ESTTelephone Encounter - Deandra Cheyenne EvansCasper - 10/17/2023 12:45 PM EST Note Date [...] accident. She said she no longer has [facility] Medicare Dual Complete. She said her primary is now [employer] and secondary is [place] Medicaid. She said she hasn't seen a neurologist before so it's not for second opinion. First Attempt Made from [facility] New patient referral received. Dx:Altered mental status, [...] Hermosillo DO Requesting first available provider in [facility] with [place] Insurance verified: [place] [employer] [place] Exchange Not worker's comp related New patient paperwork mailed 11/09/2023 - MMV documented in this encounter [employer] Telephone encounter Note 10-17-2023 Telephone Encounter - [...] accident. She said she no longer has [facility] Medicare Dual Complete. She said her primary is now [employer] Exchange and secondary is [place] Medicaid. She said she hasn't seen a neurologist before so it's not for second opinion. [employer] Telephone encounter Note 10-17-2023 Telephone Encounter - Mildred Elle - 10/17/2023 12:45 PM EST Note Date & Type Note Facility 10-17-2023 Telephone encount er Note First Attempt Made from [employer] Voicemail New patient referral received. Dx:Altered mental status, unspecified altered mental status type [R41.82]/ Referred by:Kadi Hermosillo DO Referred to: Providers patient can see in clinic: Please contact patient to schedule from referral, Thanks! PLEASE REVIEW PLAN OVER THE PHONE AND ADVISE PATIENT TO BRING UPDATED INSURANCE INFORMATION TO THEIR NEW PATIENT APPOINTMENT [facility] Telephone encounter Note 10-17-2023 Telephone Encounter - Deandra Shirley - 10/17/2023 12:45 PM EST Note Date & Type Note Facility 10-17-2023 Telephone encount er Note Patient is scheduled for the following appointment on (JUAN FRANCO PA-C) 11/27/2023 at 9:30 AM. New patient Altered mental status, unspecified altered mental status type [R41.82] Referring provider: Kadi Hermosillo DO Requesting first available provider in [facility] with [place] [facility]: [facility] Not worker's comp related New patient paperwork mailed 11/09/2023 - MMV [facility] Evaluation note Note Date & Type Note Facility Evaluation note Diagnosis Parotid mass- Primary Swelling, mass, or lump in head and neck Tobacco abuse Tobacco use disorder Hearing loss, unspecified hearing loss type, unspecified laterality documented in this encounter [facility] Evaluation note Note Date & Type Note Facility Evaluation note Diagnosis Altered mental status, unspecified altered mental status type- Primary Other cerebral palsy ([facility]) Anxiety and depression Bipolar affective disorder, remission status unspecified ([facility]) documented in this encounter [facility] [...] Referral Specialty Diagnoses / Procedures Referred By John t Referred To Contact Diagnoses Altered mental status, unspecified altered mental status type Procedures Sleep Deprived EEG Juan Franco PA-C [address] [facility] [place] [address] Referral ID Status Reason Start Date Expiration Date V isits Requested Visits Authorized [id number] Pending Review 11/27/2023 11/26/2024 1 1 Additional Source Comments INFORMATION SOURCE (unrecogn ized section and content) DATE CREATED AUTHOR 03/12/2019 [facility] DATE CREATED AUTHOR AUTHOR'S ORGANIZ ATION 08/28/2021 [facility] DATE CREATED AUTHOR AUTHOR'S ORGANIZ ATION 09/28/2022 [facility] DATE CREATED AUTHOR AUTHOR'S ORGANIZ ATION 11/28/2023 [facility] DATE CREATED AUTHOR AUTHOR'S ORGANIZ ATION 04/30/2024 [facility] EPIC Reason for Visit [...] altered mental status type Kadi Hermosillo DO [address] [place] [address] [facility] Neurology [address] [place] [address] Referral ID Status Reason Start Date Expiration Date Visits Requested Visits Authorized [id number] Pending Review Specialty Services Required 10/29/2023 10/28/2024 1 1 Care Teams (unrecognized sec tion and content) Title I Paraprofessional Relationship Specialty Start Date End Date Kadi Hermosillo DO [address] [place], [place] [id number] PCP - General Family Medicine 01/24/22 Title I Paraprofessional Relationship Specialty Start Date End Date Pawan Kerns MD [address] [place] [phone] PCP - General 04/16/23 Title I Paraprofessional Relationship Specialty Start Date End Date Pawan Kerns MD [address] [place] [place] [phone] PCP General 04/16/23 Title I Paraprofessional Relationship Specialty Start Date End Date Pawan Kerns MD [address] [place] [phone] PCP General 04/16/23 Title I Paraprofessional Relationship Specialty Start Date End Date Kadi Hermosillo DO [address] [facility], [place] [id number] PCP - [facility] Family Medicine 11/21/23 FOR RECORDS PERTAINING TO [...] BE BASED ON THE PRIMARY CLINICAL RECORDS. [facility]. provides no warranty or guarantee of the accuracy or completeness of information in this document.
[2024-05-06 07:23] LABS: HCG Qualitative NEGATIVE (NEGATIVE); Internal Control Within Normal Limits
[2024-05-06 08:03] VITALS: BP 121/81; PULSE 83; TEMP 36.9; O2SAT 100
[2024-05-06 08:18] LABS: Glucometer 191 mg/dL (74-106)
[2024-05-06 08:49] VITALS: BP 133/78; PULSE 77; O2SAT 95
[2024-05-06 08:53] VITALS: BP 142/84; PULSE 75; O2SAT 95
[2024-05-06] MEDS: BUPIVACAINE HCL 0.25% PF 25 MG/10 ML VIAL 4 ML INJ (08:54)
--- NOTE | 2024-05-06 09:32 | P.ON_ITS ---
Date of procedure: 05/06/24 Pre-op diagnosis: Lumbar spondylosis Post-op diagnosis: same as pre-op Procedure: Left lumbar 1/2, 2/3 medial branch block Under fluoroscopic guidance Solution injected: 2millilitersMarcaine 0.25% Anesthesia :none Immediate complications none Time out process compliant After informed consent obtained from the patient placed in the [employer] proposition . area was prepped and draped in a sterile fashion using Cloraprep .25 gauge spinal needle inserted over each of the above mentioned target areas . [place] were directed towards the target under fluoroscopic guidance . after encountering each of the targets , no indication of intravascular intraneuronal or intrathecal needle tip placement. Then 0 .5 to 1 Milliliter was injected at each level. [place] removed postoperatively. patient transferred to recovery in stable condition to be discharged home after meeting criteria Anesthesia: Local Surgeon: Charlie Harry Condition: stable Disposition: PACU
== END 2024-05-06 08:57 | disposition home or self-care (01) ==
LOC: SURGOUT 06:57
PROVIDERS: PCP Family Medicine; Visit Provider Anesthesiology Pain Medicine
DX: M47.816 Spondylosis without myelopathy or radiculopathy, lumbar region (principal); Z79.4 Long term (current) use of insulin; Z79.84 Long term (current) use of oral hypoglycemic drugs
CPT/HCPCS: 36415; 64493; 64494; 82948; 84703; J0665

== ENCOUNTER 2024-05-21 08:36 | Outpatient (OUT) | payer MEDICARE, MEDICAID, SELFPAY ==
--- OUTSIDE RECORDS SUMMARY | 2024-05-21 08:50 | XMS_ITS | CCD ---
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 Role Phone ROWAN CASANOVA Primary Care Unavailable BRENDA WEI Attending Unavailab JUICE Sweet Attending Unavailable JUAN, DR IVORY Consulting Unavailable [facility], DR GOLDSMITH Primary Care Unavailable JUAN, DR IVORY Attending Unavailable JUAN, DR IVORY Admitting Unavailable JESÚS, DR CASTRO Consulting Unavailable Solo Navarrete Attending Unavailable Rumschlag DO, Kadi K Primary Care Provider Pawan Kerns MD Primary Care Provider [phone] RUMSCHLAG, KADI K Primary Care Unavailable MEAGAN [...] Unavailable Kadi Hermosillo DO Primary Care Provider [phone] MATTHEW GIRON Attending Unavailable GIRON, MATTHEW Godoy [...] Amoxicillin; Translations: [AMOXICILLIN] Drug Allergy 02-14-20 17 [facility] (2 sources) Aspirin; Translations: [ASPIRIN] Drug Allergy 02-14-20 17 [facility] (2 sources) Amoxicillin Drug Allergy 02-14-20 17 [facility] [employer] [facility] Work Phone: (2 sources) Aspirin Drug Allergy 02-14-20 Other (See Comments) [facility] (6 sources) Ibuprofen; Translations: [IBUPROFEN] Drug Allergy 02-14-20 17 Other (See Comments) [facility] [employer] [facility] (3 sources) traMADol; Translations: [TRAMADOL HCL] Drug Allergy 03-09-20 19 [facility] (3 sources) Aluminum aspirin Drug Allergy 12-10-19 17 [facility] (3 sources) HYDROmorphone Drug Allergy 04-18-20 23 [facility] (3 sources) Ketorolac trometamol Allergy to substance 04-18-20 23 [facility] (3 sources) Penicillins Drug Intolerance 12-10-19 17 Rash [facility] (3 sources) traMADol Drug Allergy 03-09-20 19 Rash [facility] (3 sources) Amoxicillin-Pot Clavulanate Drug Allergy 04-18-20 23 [facility] Work Phone: Medications Current Medications Medication Drug Class(es) Dates Sig (Normalized) Sig (Original) acetaminophen 325 mg / HYDROcodone bitartrate 5 mg oral tablet (3 sources) Opioid Agonist Start: 07-17-2023 HYDROcodone-aceta minophen ([place]arrison) 5-325 MG tablet albuterol 0.83 mg/ml inhalation [...] mg total) by mouth nightly. 0 Active szztgukd-moai-SM-calciu m &mins (THERAGRAN-M) 9 mg iron-400 mcg tablet (2 sources) ltwabrjj-yfvv-JD -ca lcium &mins (THERAGRAN-M) 9 mg iron-400 [...] Ag EIA Ql (Throat) Negative Normal NEG [facility] Comment on above: Performed By: #### C BCA, CMP, 24635-8, 5643-2 #### [facility] ([id number]) [address] [place] [address], [place] [address] SARS/FLU A+B/RSV by NAAT/Mol ecularon 11-21-2023 SARS/FLU [...] operators who are performing tests using either [employer] DX or [employer] systems and is limited to laboratories that [...] repeat. Fact Sheet for Healthcare Providers: https://www.fda.gov/me pascual/657129/download Fact Sheet for Patients: https://www.fda.gov/me pascual/360046/download Normal [facility] Comment on above: Performed By: #### C SARAH ANDERSON, 44163-7, 5643-2 #### [facility] ([id number]) [address] [place] [address] CBC AND AUTO DIFFon 10-03-20 ABSOLUTE BASOPHIL 0.0 X10E9/L Normal 0.0-0.2 [facility] Comment on above: Performed By: #### C SARAH ANDERSON, 97227-5, 5643-2 #### [facility] ([id number]) [address] [place] [address] 06944 ABSOLUTE NEUTROPHIL 3.0 X10E9/L Normal 1.5-6.[address] [facility] Comment on above: Performed By: #### Aaron ANDERSON CMP, , 5642-2 #### [facility] ([id number]) [address] [place] [address] 86081 Basophils/100 WBC (Bld) 0.6 % Normal [facility] Comment on above: Performed By: #### Aaron ANDERSON, CMP, , 5642- #### [facility] ([id number]) [address] [place] [address] 80860 Eosinophils (Bld) [#/Vol] 0.1 10*3/uL Normal 0.0-0.4 [facility] Comment on above: Performed By: #### Aaron ANDERSON CMP, , 5642- #### [facility] ([id number]) [address] [place] [address] 90795 Eosinophils/100 WBC (Bld) 0.9 % Normal [facility] Comment on above: Performed By: #### Aaron ANDERSON, CMP, , 5642-2 #### [facility] ([id number]) [address] [place] [address] 36677 Erythrocyte distribution width (RBC) [Ratio] 13.6 % Normal 11.5-15.0 [facility] Comment on above: Performed By: #### Aaron ANDERSON, CMP, , 56-2 #### [facility] ([id number]) [address] [place] [address] 96978 Hematocrit (Bld) [Volume fraction] 39.7 % Normal 35-47 [facility] Comment on above: Performed By: #### Aaron ANDERSON CMP, , 43-2 #### [facility] ([id number]) [address] [place] [address] 44889 Hemoglobin (Bld) [Mass/Vol] 13.1 g/dL Normal 11.7-15.5 [facility] Comment on above: Performed By: #### Aaron ANDERSON CMP, , 5642- #### [facility] ([id number]) [address] [place] [address] 70103 Lymphocytes (Bld) [#/Vol] 2.2 10*3/uL Normal 1.0-3.5 [facility] Comment on above: Performed By: #### Aaron ANDERSON CMP, , 5642- #### [facility] ([id number]) [address] [place] [address] 75076 Lymphocytes/100 WBC (Bld) 36.6 % Normal [facility] Comment on above: Performed By: #### Aaron ANDERSON CMP, , 5642- #### [facility] ([id number]) [address] [place] [address] 47318 MCH (RBC) [Entitic mass] 28.5 pg Normal 27-34 [facility] Comment on above: Performed By: #### Aaron ANDERSON CMP, , 5642- #### [facility] ([id number]) [address] [place] [address] 98041 MCHC (RBC) [Mass/Vol] 32.9 g/dL Normal 32-36 [facility] Comment on above: Performed By: #### Aaron ANDERSON CMP, , 5642- #### [facility] ([id number]) [address] [place] [address] 77937 MCV (RBC) [Entitic vol] 87 fL Normal 80-100 [facility] Comment on above: Performed By: #### Aaron ANDERSON CMP, , 5642-2 #### [facility] ([id number]) [address] [place] [address] 87966 Monocytes (Bld) [#/Vol] 0.8 10*3/uL Normal 0-0.9 [facility] Comment on above: Performed By: #### Aaron ANDERSON, CMP, , 43-2 #### [facility] ([id number]) [address] [place] [address] 82252 Monocytes/100 WBC (Bld) 13.1 % Normal [facility] Comment on above: Performed By: #### Aaron ANDERSON, CMP, , 43-2 #### [facility] ([id number]) [address] [place] [address] 38669 Neutrophils/100 WBC (Bld) 48.8 % Normal [facility] Comment on above: Performed By: #### Aaron ANDERSON, CMP, , 43-2 #### [facility] ([id number]) [address] [place] [address] 89152 Platelet mean volume (Bld) [Entitic vol] 7.7 fL Normal 7-12 [facility] Comment on above: Performed By: #### Aaron ANDERSON, CMP, , 5643-2 #### [facility] ([id number]) [address] [place] [address] 71287 Platelets (Bld) [#/Vol] 392 10*3/uL Normal 150-450 [facility] Comment on above: Performed By: #### Aaron ANDERSON, CMP, , 5643-2 #### [facility] ([id number]) [address] [place] [address] 89634 RBC COUNT 4.58 X10E12/L Normal 3.80-5.20 [facility] Comment on above: Performed By: #### Aaron ANDERSON, CMP, , 5643-2 #### [facility] ([id number]) [address] [place] [address] 35871 WBC (Bld) [#/Vol] 6.1 10*3/uL Normal 4.0-11.0 [facility] Comment on above: Performed By: #### C BCA, CMP, , 5643-2 #### [facility] ([id number]) [address] [place] [address] 56051 COMPREHENSIVE METABOLIC PANE [facility] 10-03-2023 Albumin [Mass/Vol] 3.6 g/dL Normal 3.2-5.3 [facility] Comment on above: Performed By: #### C BCA, CMP, , 43-2 #### [facility] ([id number]) [address] [place] [address] 91390 ALP [Catalytic activity/Vol] 86 U/L Normal 39-130 [facility] Comment on above: Performed By: #### C BCA, CMP, , 43-2 #### [facility] ([id number]) [address] [place] [address] 04485 ALT [Catalytic activity/Vol] 24 U/L Normal 0-31 [facility] Comment on above: Performed By: #### C BCA, CMP, , 5643-2 #### [facility] ([id number]) [address] [place] [address] 69678 Anion gap [Moles/Vol] 7 mmol/L Normal 5-15 [facility] Comment on above: Performed By: #### C BCA, CMP, , 5643-2 #### [facility] ([id number]) [address] [place] [address] 54974 AST [Catalytic activity/Vol] 36 U/L Normal 0-41 [facility] Comment on above: Performed By: #### C BCA, CMP, , 5643-2 #### [facility] ([id number]) [address] [place] [address] 09765 Bilirubin [Mass/Vol] 0.7 mg/dL Normal 0.3-1.[address] [facility] Comment on above: Performed By: #### C JUSTIN CMP, , 5643-2 #### [facility] ([id number]) [address] [place] [address] 73569 Calcium [Mass/Vol] 8.5 mg/dL Normal 8.5-10.5 [facility] Comment on above: Performed By: #### C JUSTIN CMP, , 5643-2 #### [facility] ([id number]) [address] [place] [address] 82412 Chloride [Moles/Vol] 107 mmol/L Normal 98-[address] [facility] Comment on above: Performed By: #### C JUSTIN CMP, , 5643-2 #### [facility] ([id number]) [address] [place] [address] 80990 CO2 [Moles/Vol] 23 mmol/L Normal 22-32 [facility] Comment on above: Performed By: #### C JUSTIN CMP, , 5643-2 #### [facility] ([id number]) [address] [place] [address] 54850 Creatinine [Mass/Vol] 0.70 mg/dL Normal 0.40-1.00 [facility] Comment on above: Result Comment: METH OD TRACEABLE TO IDMS STANDARD Performed By: #### C JUSTIN CMP, , 5643-2 #### [facility] ([id number]) [address] [place] [address] 30963 eGFR (CKD-EPI) NON-RACE DEPENDENT >90 Normal >59 [facility] Comment on above: Result Comment: Reported eGFR is based on the CKD-EPI 2020 equation that does not use a race coefficient. Performed By: #### C JUSTIN, CMP, , 5643-2 #### [facility] ([id number]) [address] [place] [address] 88645 Glucose [Mass/Vol] 78 mg/dL Normal 65-99 [facility] Comment on above: Performed By: #### C JUSTIN, [facility], , 56-2 #### [facility] ([id number]) [address] [place] [address] 81727 Potassium [Moles/Vol] 3.6 mmol/L Normal 3.5-5.0 [facility] Comment on above: Performed By: #### C JUSTIN, CMP, , 56-2 #### [facility] ([id number]) [address] [place] [address] 71800 Protein [Mass/Vol] 6.6 g/dL Normal 6.0-8.0 [facility] Comment on above: Performed By: #### C JUSTIN, [facility], , 5643-2 #### [facility] ([id number]) [address] [place] [address] 91573 Sodium [Moles/Vol] 137 mmol/L Normal 134-146 [facility] Comment on above: Performed By: #### C JUSTIN, CMP, , 5643-2 #### [facility] ([id number]) [address] [place] [address] 21965 Urea nitrogen [Mass/Vol] 17 mg/dL Normal 5-23 [facility] Comment on above: Performed By: #### C BCA, CMP, , 5642-2 #### [facility] ([id number]) [address] [place] [address] 65072 MAGNESIUMon 10-03-2023 Magnesium [Mass/Vol] 1.9 mg/dL Normal 1.8-2.[address] [facility] Comment on above: Performed By: #### Aaron ANDERSON CMP, , 5642-2 #### [facility] ([id number]) [address] [place] [address] 30155 AMMONIAon 10-02-2023 Ammonia (P) [Moles/Vol] 33 umol/L Normal 11-35 [facility] Comment on above: Performed By: #### Aaron ANDERSON CMP, , 5642-2 #### [facility] ([id number]) [address] [place] [address] 48380 BLOOD CULTUREon 10-02-2023 Bacteria identified Aer cx Nom (Bld) SPECIMEN NOTES SUBOPTIMAL VOLUME OF BLOOD COLLECTED, RESULTS MAY BE AFFECTED. CULTURE RESULTS NO GROWTH 5 DAYS Normal [facility] Comment on above: Performed By: #### Aaron ANDERSON CMP, , 5642-2 #### [facility] ([id number]) [address] [place] [address] Bacteria identified Aer cx Nom (Bld) SPECIMEN NOTES SUBOPTIMAL VOLUME OF BLOOD COLLECTED, RESULTS MAY BE AFFECTED. CULTURE RESULTS NO GROWTH 5 DAYS Normal [facility] Comment on above: Performed By: #### Aaron ANDERSON CMP, , 56- #### [facility] ([id number]) [address] [place] [address] 28597 CBC AND AUTO DIFFon 10-02-20 23 ABSOLUTE BASOPHIL 0.1 X10E9/L Normal 0.0-0.2 [facility] Comment on above: Performed By: #### Aaron ANDERSON CMP, , 5643-2 #### [facility] ([id number]) [address] [place] [address] 78205 ABSOLUTE NEUTROPHIL 8.5 X10E9/L High 1.5-6.[address] [facility] Comment on above: Performed By: #### Aaron ANDERSON CMP, , 56-2 #### [facility] ([id number]) [address] [place] [address] 99339 Basophils/100 WBC (Bld) 0.5 % Normal [facility] Comment on above: Performed By: #### Aaron ANDERSON CMP, , 56-2 #### [facility] ([id number]) [address] [place] [address] 78745 Eosinophils (Bld) [#/Vol] 0.1 10*3/uL Normal 0.0-0.4 [facility] Comment on above: Performed By: #### Aaron ANDERSON CMP, , 5642- #### [facility] ([id number]) [address] [place] [address] 22990 Eosinophils/100 WBC (Bld) 0.6 % Normal [facility] Comment on above: Performed By: #### Aaron ANDERSON CMP, , 5642-2 #### [facility] ([id number]) [address] [place] [address] 89009 Erythrocyte distribution width (RBC) [Ratio] 13.6 % Normal 11.5-15.0 [facility] Comment on above: Performed By: #### Aaron ANDERSON CMP, , 56- #### [facility] ([id number]) [address] [place] [address] 95222 Hematocrit (Bld) [Volume fraction] 43.3 % Normal 35-47 [facility] Comment on above: Performed By: #### Aaron ANDERSON, CMP, , 5642- #### [facility] ([id number]) [address] [place] [address] 40186 Hemoglobin (Bld) [Mass/Vol] 14.4 g/dL Normal 11.7-15.5 [facility] Comment on above: Performed By: #### Aaron ANDERSON CMP, , 43-2 #### [facility] ([id number]) [address] [place] [address] 46790 Lymphocytes (Bld) [#/Vol] 3.2 10*3/uL Normal 1.0-3.5 [facility] Comment on above: Performed By: #### Aaron ANDERSON CMP, , 5642- #### [facility] ([id number]) [address] [place] [address] 91632 Lymphocytes/100 WBC (Bld) 24.9 % Normal [facility] Comment on above: Performed By: #### Aaron ANDERSON CMP, , 5642- #### [facility] ([id number]) [address] [place] [address] 45373 MCH (RBC) [Entitic mass] 28.9 pg Normal 27-34 [facility] Comment on above: Performed By: #### Aaron ANDERSON CMP, , 5642-2 #### [facility] ([id number]) [address] [place] [address] 42702 MCHC (RBC) [Mass/Vol] 33.4 g/dL Normal 32-36 [facility] Comment on above: Performed By: #### Aaron ANDERSON CMP, , 5642- #### [facility] ([id number]) [address] [place] [address] 59127 MCV (RBC) [Entitic vol] 87 fL Normal 80-100 [facility] Comment on above: Performed By: #### Aaron ANDERSON, CMP, , 5642-2 #### [facility] ([id number]) [address] [place] [address] 27240 Monocytes (Bld) [#/Vol] 1.1 10*3/uL High 0-0.9 [facility] Comment on above: Performed By: #### Aaron ANDERSON CMP, , 5642-11 #### [facility] ([id number]) [address] [place] [address] 97046 Monocytes/100 WBC (Bld) 8.5 % Normal [facility] Comment on above: Performed By: #### Aaron ANDERSON, CMP, , 5642- #### [facility] ([id number]) [address] [place] [address] 62987 Neutrophils/100 WBC (Bld) 65.5 % Normal [facility] Comment on above: Performed By: #### Aaron ANDERSON, CMP, , 5642- #### [facility] ([id number]) [address] [place] [address] 85420 Platelet mean volume (Bld) [Entitic vol] 7.7 fL Normal 7-12 [facility] Comment on above: Performed By: #### Aaron ANDERSON, CMP, , 5642- #### [facility] ([id number]) [address] [place] [address] 13115 Platelets (Bld) [#/Vol] 510 10*3/uL High 150-450 [facility] Comment on above: Performed By: #### Aaron ANDERSON, CMP, , 5642- #### [facility] ([id number]) [address] [place] [address] 02335 RBC COUNT 4.99 X10E12/L Normal 3.80-5.20 [facility] Comment on above: Performed By: #### Aaron BCA, CMP, , 5642- #### [facility] ([id number]) [address] [place] [address] 88795 WBC (Bld) [#/Vol] 13.0 10*3/uL High 4.0-11.0 [facility] Comment on above: Performed By: #### Aaron BCA, CMP, , 5642-2 #### [facility] ([id number]) [address] [place] [address] 13362 COMPREHENSIVE METABOLIC PANE Artur 10-02-2023 Albumin [Mass/Vol] 4.3 g/dL Normal 3.2-5.3 [facility] Comment on above: Performed By: #### C BCA, CMP, , 43-2 #### [facility] ([id number]) [address] [place] [address] 77912 ALP [Catalytic activity/Vol] 98 U/L Normal 39-130 [facility] Comment on above: Performed By: #### C BCA, CMP, , 43-2 #### [facility] ([id number]) [address] [place] [address] 64724 ALT [Catalytic activity/Vol] 17 U/L Normal 0-31 [facility] Comment on above: Performed By: #### C BCA, CMP, , 43-2 #### [facility] ([id number]) [address] [place] [address] 01721 Anion gap [Moles/Vol] 8 mmol/L Normal 5-15 [facility] Comment on above: Performed By: #### C BCA, CMP, , 5643-2 #### [facility] ([id number]) [address] [place] [address] 70061 AST [Catalytic activity/Vol] 24 U/L Normal 0-41 [facility] Comment on above: Performed By: #### C BCA, CMP, , 5643-2 #### [facility] ([id number]) [address] [place] [address] 29531 Bilirubin [Mass/Vol] 1.0 mg/dL Normal 0.3-1.[address] [facility] Comment on above: Performed By: #### C BCA, CMP, , 5643-2 #### [facility] ([id number]) [address] [place] [address] 92974 Calcium [Mass/Vol] 9.3 mg/dL Normal 8.5-10.5 [facility] Comment on above: Performed By: #### C JUSTIN, CMP, , 43-2 #### [facility] ([id number]) [address] [place] [address] 18113 Chloride [Moles/Vol] 109 mmol/L Normal 98-[address] [facility] Comment on above: Performed By: #### C JUSTIN CMP, , 5642- #### [facility] ([id number]) [address] [place] [address] 41930 CO2 [Moles/Vol] 24 mmol/L Normal 22-32 [facility] Comment on above: Performed By: #### C JUSTIN, CMP, , 5642-2 #### [facility] ([id number]) [address] [place] [address] 54975 Creatinine [Mass/Vol] 0.81 mg/dL Normal 0.40-1.00 [facility] Comment on above: Result Comment: METH OD TRACEABLE TO IDMS STANDARD Performed By: #### C JUSTIN CMP, , 5642-2 #### [facility] ([id number]) [address] [place] [address] 59292 eGFR (CKD-EPI) NON-RACE DEPENDENT >90 Normal >59 [facility] Comment on above: Result Comment: Reported eGFR is based on the CKD-EPI 2020 equation that does not use a race coefficient. Performed By: #### C JUSTIN, CMP, , 5643-2 #### [facility] ([id number]) [address] [place] [address] 83715 Glucose [Mass/Vol] 174 mg/dL High 65-99 [facility] Comment on above: Performed By: #### C JUSTIN, CMP, , 5643-2 #### [facility] ([id number]) [address] [place] [address] 34339 Potassium [Moles/Vol] 3.9 mmol/L Normal 3.5-5.0 [facility] Comment on above: Performed By: #### C JUSTIN, CMP, , 43-2 #### [facility] ([id number]) [address] [place] [address] 40604 Protein [Mass/Vol] 7.9 g/dL Normal 6.0-8.0 [facility] Comment on above: Performed By: #### C JUSTIN, CMP, , 5643-2 #### [facility] ([id number]) [address] [place] [address] 07700 Sodium [Moles/Vol] 141 mmol/L Normal 134-146 [facility] Comment on above: Performed By: #### C JUSTIN, CMP, , 5643-2 #### [facility] ([id number]) [address] [place] [address] 30845 Urea nitrogen [Mass/Vol] 10 mg/dL Normal 5-23 [facility] Comment on above: Performed By: #### C JUSTIN, CMP, , 5643-2 #### [facility] ([id number]) [address] [place] [address] 69082 CRP [Mass/Vol]on 10-02-2023 C REACTIVE PROTEIN 1.0 mg/dL High 0.000-0.744 [facility] Comment on above: Performed By: #### C BCA, CMP, , 5643-2 #### [facility] ([id number]) [address] [place] [address] BRAIN WO CONTon 12-26-[address] [...] Valentin MD on 10/01/2023 10:42 PM Normal [facility] FREE T4on 10-02-2023 Free T4 [Mass/Vol] 0.98 ng/dL Normal 0.61-1.60 [facility] Comment on above: Performed By: #### 1 0839-9, 43891-3, TSHR, 3024-7 ####[facility] ([id number])[address] [place] [address]#### 2132-9 ####[facility] ([id number])[address] [place] [address], [address] [place] [address] 85603 Glucose Glucometer (BldC) [M ass/Vol]on 10-02-2023 Glucose [Mass/Vol] 146 mg/dL High 65-99 [facility] Glucose [Mass/Vol] 127 mg/dL High 65-99 [facility] Glucose [Mass/Vol] 136 mg/dL High 65-99 [facility] Glucose [Mass/Vol] 114 mg/dL High 65-99 [facility] Glucose [Mass/Vol] 152 mg/dL High 65-99 [facility] Glucose [Mass/Vol] 188 mg/dL High 65-99 [facility] Glucose [Mass/Vol] 221 mg/dL High 65-99 [facility] HGB A1C (GLYCO-HGB)on 2022 Glucose [Mass/Vol] 194 mg/dL Normal [facility] Comment on above: Performed By: #### 1 0839-9, 08792-7, TSHR, 3024-7 ####[facility] ([id number])[address] [place] [address]#### 2132-9 ####[facility] ([id number])[address] [place] [address], [address] [address] HbA1c (Bld) [Mass fraction] 8.4 % High 4.4-5.6 [facility] Comment on above: Result Comment: NOTE ADA Guidelines Result HgbA1c Normal : less than 5.7 % Prediabetes : 5.7 % to 6.4 % Diabetes : > 6.4 % Use with caution in patients with abnormal hemoglobin variants as the half-life of red blood cells and in vivo glycation rates are affected. Performed By: #### 1 0839-9, 17424-4, TSHR, 3024-7 ####[facility] ([id number])[address] [place] [address]#### 2132-9 ####[facility] ([id number])[address] [place] [address], [address] [address] MAGNESIUMon 10-02-2023 Magnesium [Mass/Vol] 2.2 mg/dL Normal 1.8-2.[address] [facility] Comment on above: Performed By: #### C BCA, CMP, 56328-4, 5643-2 #### [facility] ([id number]) [address] [place] [id number] MR BRAIN W CONTon 10-02-2023 MR BRAIN [...] Narinder Baez on 10/02/2023 6:09 PM Normal [facility] MR BRAIN WO CONTon 3 MR [...] Myers MD on 10/02/2023 7:30 AM Normal [facility] Procalcitonin IA [Mass/Vol]o n 10-02-2023 PROCALCITONIN <0.05 Normal <0.05 [facility] Comment on above: Result Comment: NOTE <0.50 ng/mL - Low risk of severe sepsis and/or septic shock. <2.00 ng/mL - Recommend retesting within 6-24 hours. >2.00 ng/mL - High risk of sepsis and/or septic shock. Performed By: #### 1 0839-9, 13337-1, TSHR, 3024-7 ####[facility] ([id number])[address] [place] [address]#### 9 ####[facility] ([id number])[address] [facility], [address] [place] [address] THYROID PROFILEon 10-02-2023 Free T4 [Mass/Vol] 1.19 ng/dL Normal 0.61-[facility].60 [facility] [place] Comment on above: Performed By: #### C BCA, CMP, 51713-7, 5643-2 #### [facility] ([id number]) [address] [place] [address] 93681 TSH 2.52 uIU/mL Normal 0.49-4.67 [facility] Comment on above: Performed By: #### C BCA, CMP, , 5643-2 #### [facility] ([id number]) [address] [place] [address] 10002 TROPONIN Ion 10-02-2023 Troponin I.cardiac [Mass/Vol] ng/mL Normal 0.00-0.04 [facility] Comment on above: Performed By: #### 1 0839-9, 82020-9, TSHR, 3024-7 ####[facility] ([id number])[address] [place] [address]#### 2131-9 ####[facility] ([id number])[address] [facility], [address] [place] [address] 44519 TSH WITH REFLEXon 10-02-2023 TSH 6.43 uIU/mL High 0.49-4.67 [facility] Comment on above: Performed By: #### 1 0839-9, 04427-4, TSHR, 3024-7 ####[facility] ([id number])[address] [place] [address]#### 2132-9 ####[facility] ([id number])[address], [address] [place] [address] 08612 URIC ACIDon 10-02-2023 Urate [Mass/Vol] 3.5 mg/dL Normal 2.6-7.2 [facility] Comment on above: Performed By: #### C BCA, CMP, 76608-8, 5643-2 #### [facility] ([id number]) [address] [place] [address] 52490 VITAMIN B12on 10-02-2023 Cobalamin (Vitamin B12) [Mass/Vol] 313 pg/mL Normal 180-914 [facility] Comment on above: Performed By: #### 1 0839-9, 57932-5, TSHR, 3024-7 ####[facility] ([id number])[address] [place] [address]#### 2132-9 ####[facility] ([id number])[address] [place] [address] 21890 XR CHEST 1 VWon 10-02-2023 XR CHEST [...] Hayes MD on 10/02/2023 4:35 AM Normal [facility] ACETAMINOPHENon 10-01-2023 Acetaminophen [Mass/Vol] ug/mL Low 10.0-30.0 [facility] Comment on above: Result Comment: Refe rence ranges are for therapeutic limits. Performed By: #### 3 298-7, 4024-6, 04214-0 #### [facility] ([id number]) [address] [place] [address] 02614 AMMONIAon 10-01-2023 Ammonia (P) [Moles/Vol] 30 umol/L Normal 11-35 [facility] Comment on above: Performed By: #### 3 298-7, 4024-6, 54284-6 ####[facility] ([id number])[address] [place] [address] 94249 CBC AND AUTO DIFFon 10-01-20 ABSOLUTE BASOPHIL 0.1 X10E9/L Normal 0.0-0.2 [facility] [place] Comment on above: Performed By: #### C JUSTIN CMP, , 5643-2 #### [facility] ([id number]) [address] [place] [address] 11884 ABSOLUTE NEUTROPHIL 9.1 X10E9/L High 1.5-6.[address] [facility] Comment on above: Performed By: #### C JUSTIN, CMP, , 5643-2 #### [facility] ([id number]) [address] [place] [address] 89406 Basophils/100 WBC (Bld) 0.6 % Normal [facility] Comment on above: Performed By: #### C BCA, CMP, , 5643-2 #### [facility] ([id number]) [address] [place] [address] 83401 Eosinophils (Bld) [#/Vol] 0.1 10*3/uL Normal 0.0-0.4 [facility] Comment on above: Performed By: #### Aaron ANDERSON CMP, , 56-2 #### [facility] ([id number]) [address] [place] [address] 73355 Eosinophils/100 WBC (Bld) 1.1 % Normal [facility] Comment on above: Performed By: #### Aaron ANDERSON [facility], , 5642-2 #### [facility] ([id number]) [address] [place] [address] 64793 Erythrocyte distribution width (RBC) [Ratio] 13.6 % Normal 11.5-15.0 [facility] Comment on above: Performed By: #### Aaron ANDERSON [facility], , 5642- #### [facility] ([id number]) [address] [place] [address] 11127 Hematocrit (Bld) [Volume fraction] 43.2 % Normal 35-47 [facility] Comment on above: Performed By: #### Aaron ANDERSON [facility], , 56-2 #### [facility] ([id number]) [address] [place] [address] 92605 Hemoglobin (Bld) [Mass/Vol] 14.5 g/dL Normal 11.7-15.5 [facility] Comment on above: Performed By: #### Aaron ANDERSON CMP, , 5642-2 #### [facility] ([id number]) [address] [place] [address] 17603 Lymphocytes (Bld) [#/Vol] 2.4 10*3/uL Normal 1.0-3.5 [facility] Comment on above: Performed By: #### Aaron ANDERSON CMP, , 43-2 #### [facility] ([id number]) [address] [place] [address] 43557 Lymphocytes/100 WBC (Bld) 18.7 % Normal [facility] Comment on above: Performed By: #### Aaron ANDERSON CMP, , 5642- #### [facility] ([id number]) [address] [place] [address] 11679 MCH (RBC) [Entitic mass] 28.8 pg Normal 27-34 [facility] Comment on above: Performed By: #### Aaron ANDERSON CMP, , 5642-2 #### [facility] ([id number]) [address] [place] [address] 14635 MCHC (RBC) [Mass/Vol] 33.5 g/dL Normal 32-36 [facility] Comment on above: Performed By: #### Aaron ANDERSON CMP, , 5642- #### [facility] ([id number]) [address] [place] [address] 59340 MCV (RBC) [Entitic vol] 86 fL Normal 80-100 [facility] Comment on above: Performed By: #### Aaron ANDERSON CMP, , 5642- #### [facility] ([id number]) [address] [place] [address] 23722 Monocytes (Bld) [#/Vol] 1.0 10*3/uL High 0-0.9 [facility] Comment on above: Performed By: #### Aaron ANDERSON CMP, , 5642-2 #### [facility] ([id number]) [address] [place] [address] 34569 Monocytes/100 WBC (Bld) 7.5 % Normal [facility] Comment on above: Performed By: #### Aaron ANDERSON CMP, , 43-2 #### [facility] ([id number]) [address] [place] [address] 86950 Neutrophils/100 WBC (Bld) 72.1 % Normal [facility] Comment on above: Performed By: #### Aaron ANDERSON CMP, , 5643-2 #### [facility] ([id number]) [address] [place] [address] 82888 Platelet mean volume (Bld) [Entitic vol] 7.5 fL Normal 7-12 [facility] Comment on above: Performed By: #### Aaron ANDERSON CMP, , 43-2 #### [facility] ([id number]) [address] [place] [address] 77741 Platelets (Bld) [#/Vol] 510 10*3/uL High 150-450 [facility] Comment on above: Performed By: #### Aaron ANDERSON CMP, , 43-2 #### [facility] ([id number]) [address] [place] [address] 30615 RBC COUNT 5.02 X10E12/L Normal 3.80-5.20 [facility] Comment on above: Performed By: #### Aaron ANDERSON, CMP, , 5643-2 #### [facility] ([id number]) [address] [place] [address] 35735 WBC (Bld) [#/Vol] 12.6 10*3/uL High 4.0-11.0 [facility] Comment on above: Performed By: #### Aaron ANDERSON, CMP, , 5643-2 #### [facility] ([id number]) [address] [place] [address] 32743 COMPREHENSIVE METABOLIC PANE Artur 10-01-2023 Albumin [Mass/Vol] 4.8 g/dL Normal 3.2-5.3 [facility] [place] Comment on above: Performed By: #### Aaron ANDERSON, CMP, , 5643-2 #### [facility] ([id number]) [address] [place] [address] 83284 ALP [Catalytic activity/Vol] 101 U/L Normal 39-130 [facility] Comment on above: Performed By: #### C BCA, CMP, , 43-2 #### [facility] ([id number]) [address] [place] [address] 57091 ALT [Catalytic activity/Vol] 17 U/L Normal 0-31 [facility] Comment on above: Performed By: #### C BCA, CMP, , 43-2 #### [facility] ([id number]) [address] [place] [address] 16460 Anion gap [Moles/Vol] 6 mmol/L Normal 5-15 [facility] Comment on above: Performed By: #### C BCA, CMP, , 43-2 #### [facility] ([id number]) [address] [place] [address] 33411 AST [Catalytic activity/Vol] 18 U/L Normal 0-41 [facility] Comment on above: Performed By: #### C BCA, CMP, , 5643-2 #### [facility] ([id number]) [address] [place] [address] 74940 Bilirubin [Mass/Vol] 0.4 mg/dL Normal 0.3-1.[address] [facility] Comment on above: Performed By: #### C BCA, CMP, , 43-2 #### [facility] ([id number]) [address] [place] [address] 25080 Calcium [Mass/Vol] 9.2 mg/dL Normal 8.5-10.5 [facility] [place] Comment on above: Performed By: #### C BCA, CMP, , 5643-2 #### [facility] ([id number]) [address] [place] [address] [place] [address] Chloride [Moles/Vol] 104 mmol/L Normal 98-[address] [facility] Comment on above: Performed By: #### C SARAH ANDERSON, , 56432 #### [facility] ([id number]) [address] [place] [address] 71210 CO2 [Moles/Vol] 26 mmol/L Normal 22-32 [facility] Comment on above: Performed By: #### C SARAH ANDERSON, , 5642- #### [facility] ([id number]) [address] [place] [address] 46674 Creatinine [Mass/Vol] 0.88 mg/dL Normal 0.40-1.00 [facility] Comment on above: Result Comment: METH OD TRACEABLE TO IDMS STANDARD Performed By: #### C SARAH ANDERSON, , 5642-11 #### [facility] ([id number]) [address] [place] [address] 87685 GFR/1.73 sq M.predicted among non-blacks MDRD (S/P/Bld) [Vol rate/Area] 84 mL/min/{1.73_m2} Normal >59 [facility] Comment on above: Result Comment: Reported eGFR is based on the CKD-EPI 2020 equation that does not use a race coefficient. Performed By: #### C SARAH ANDERSON, , 5642-11 #### [facility] ([id number]) [address] [place] [address] 91099 Glucose [Mass/Vol] 247 mg/dL High 65-99 [facility] [place] Comment on above: Performed By: #### C SARAH ANDERSON, , 2 #### [facility] ([id number]) [address] [place] [address] 56131 Potassium [Moles/Vol] 4.0 mmol/L Normal 3.5-5.0 [facility] Comment on above: Performed By: #### C BCA, CMP, 44839-1, 5643-2 #### [facility] ([id number]) [address] [place] [address] 84577 Protein [Mass/Vol] 8.2 g/dL High 6.0-8.0 [facility] [place] Comment on above: Performed By: #### C BCA, CMP, , 5643-2 #### [facility] ([id number]) [address] [place] [address] 27573 Sodium [Moles/Vol] 136 mmol/L Normal 134-146 [facility] [place] Comment on above: Performed By: #### C BCA, CMP, , 5643-2 #### [facility] ([id number]) [address] [place] [address] 48514 Urea nitrogen [Mass/Vol] 12 mg/dL Normal 5-23 [facility] Comment on above: Performed By: #### C BCA, [facility], , 5643-2 #### [facility] ([id number]) [address] [place] [address] [place] [address] DRUG SCREEN, URINEon 023 AMPHETAMINE/METHAMP Negative Normal NEG [facility] Comment on above: Result Comment: AMPH /METH screening cut off = 1000 ng/mL Performed By: #### D STEELE #### [facility] ([id number]) [address] [place] [address] [place] [address] BARBITURATES Negative Normal NEG [facility] Comment on above: Result Comment: Kelsi iturates screening cut off value = 200 ng/mL Performed By: #### D STEELE #### [facility] ([id number]) [address] [place] [address] [place] [address] BENZODIAZEPINES Negative Normal NEG [facility] Comment on above: Result Comment: Simeon odiazepines screening cut off value = 200 ng/mL Performed By: #### D STEELE #### [facility] ([id number]) [address] [place] [address] 73769 CANNABINOIDS Negative Normal [facility] Comment on above: Result Comment: Carlos abinoids/THC screening cut off value = 50 ng/mL Performed By: #### D STEELE #### [facility] ([id number]) [address] [place] [address] 61852 COCAINE METABOLITE Negative Normal NEG [facility] [place] Comment on above: Result Comment: Coca ine screening cut off value = 300 ng/mL Performed By: #### D STEELE #### [facility] ([id number]) [address] [place] [address] 51683 ECSTASY Negative Normal [facility] Comment on above: Result Comment: Ecst asy screening cut off value = 500 ng/mL This report is intended for use in clinical monitoring or management of patients. Performed By: #### D STEELE #### [facility] ([id number]) [address] [place] [address] 66957 METHADONE Negative [facility] Comment on above: Result Comment: Meth adone screening cut off value = 300 ng/mL. Performed By: #### D STEELE #### [facility] ([id number]) [address] [place] [address] 92137 OPIATES Negative Normal [facility] Comment on above: Result Comment: Opia chu screening cut off value = 300 ng/mL NOTE: This test is used for the detection of codeine, hydrocodone (>1000 ng/mL), morphine and hydromorphone (>900 ng/mL) in urine. Performed By: #### D STEELE #### [facility] ([id number]) [address] [place] [address] [place] [address] OXYCODONE Negative Normal NEG [facility] Comment on above: Result Comment: Oxyc odone screening cut off value = 300 ng/mL NOTE: This test is used for the detection of oxycodone and oxymorphone in urine. Performed By: #### D STEELE #### [facility] ([id number]) [address] [place] [address] 30502 PHENCYCLIDINE Negative Normal NEG [facility] Comment on above: Result Comment: Phen cyclidine screening cut off value = 25 ng/mL Performed By: #### D STEELE #### [facility] ([id number]) [address] [place] [address] 54854 ETHANOLon 10-01-2023 Ethanol [Mass/Vol] mg/dL Normal 0.00-0.08 [facility] [place] Comment on above: Result Comment: This report is intended for use in clinical monitoring or management of patients. Performed By: #### C SARAH ANDERSON, 36881-0, 5643-2 #### [facility] ([id number]) [address] [place] [address] 49847 Glucose Glucometer (BldC) [M ass/Vol]on 10-01-2023 Glucose [Mass/Vol] 237 mg/dL High 65-99 [facility] [place] MAGNESIUMon 10-01-2023 Magnesium [Mass/Vol] 2.1 mg/dL Normal 1.8-2.[address] [facility] Comment on above: Performed By: #### C JUSTIN CMP, 60702-4, 5643-2 #### [facility] ([id number]) [address] [place] [address] 83936 Salicylates [Mass/Vol]on SALICYLATE <4.0 Normal 2.0-25.0 [facility] Comment on above: Result Comment: Refe rence ranges are for therapeutic limits. Performed By: #### 3 298-7, 4024-6, 15716-4 #### [facility] ([id number]) [address] [place] [address] 83828 URN MACROSCOPIC NURon 2022 BILIRUBIN SAMMY Negative Normal NEG [facility] Comment on above: Performed By: #### N UM #### [facility] ([id number]) [address] [place] [address] 84555 BLOOD/HGB SAMMY Negative Normal NEG [facility] Comment on above: Performed By: #### N UM #### [facility] ([id number]) [address] [place] [address] 97200 GLUCOSE SAMMY 500 mg/dL Abnormal NEG [facility] Comment on above: Performed By: #### N UM #### [facility] ([id number]) [address] [place] [address] 98407 KETONES SAMMY Negative Normal NEG [facility] Comment on above: Performed By: #### N UM #### [facility] ([id number]) [address] [place] [address] [place] [address] LEUKOCYTE ESTERASE SAMMY Negative Normal NEG [facility] Comment on above: Performed By: #### N UM #### [facility] ([id number]) [address] [place] [address] 76710 NITRITE SAMMY Negative Normal NEG [facility] Comment on above: Performed By: #### N UM #### [facility] ([id number]) [address] [place] [address] 32468 PH SAMMY 7.0 Normal 5.0-8.5 [facility] Comment on above: Performed By: #### N UM #### [facility] ([id number]) [address] [place] [address] 40154 PROTEIN SAMMY Negative Normal NEG [facility] Comment on above: Performed By: #### N UM #### [facility] ([id number]) [address] [place] [address] [place] [address] SPECIFIC GRAVITY SAMMY 1.010 Normal 1.003-1.035 [facility] Comment on above: Performed By: #### N UM #### [facility] ([id number]) [address] [facility], [place] [address] UROBILINOGEN SAMMY 0.2 eu/dL Normal <1.1 [facility] Comment on above: Performed By: #### N UM #### [facility] ([id number]) [address] [facility] [place] [address] XR SHOULDER LT MIN 2 VWSon 1 [...] Johnson MD on 09/24/2023 10:24 AM Normal [facility] HERPES SIMPLEX VIRUS (HSV) C ULTUREon 08-26-2021 HSV Culture/Type Comment Abnormal [facility] Comment on above: Result Comment: Posi tive for Herpes simplex virus type-2. Typing was confirmed by monoclonal antibody microscopic immunofluorescence. Performed By: #### H SVCUL #### [facility] [address] [place] [address] Dr. Gianfranco Orta AMYLASEon 08-21-2021 AMYL <30 Critically low 31-110 [facility] Comment on above: Performed By: #### A ALEXIA WALKER #### [facility] [address] [place] [address] Dr. Gianfranco Orta CBC AUTO DIFFon 08-21-2021 BASO # 0.1 103/ul Normal 0.0-0.1 [facility] Comment on above: Performed By: #### C BC #### [facility] [address] [place] [address] Dr. Gianfranco Orta Basophils/100 WBC (Bld) 0.5 % Normal 0.2-2.0 [facility] Comment on above: Performed By: #### C BC #### [facility] [address] [address] [address] Gianfranco Orta EO # 0.2 103/ul Normal 0.0-0.7 [facility] Comment on above: Performed By: #### C BC #### [facility] [address] [place] [address] Dr. Gianfranco Orta Eosinophils/100 WBC (Bld) 2.3 % Normal 0.9-7.0 [facility] Comment on above: Performed By: #### C BC #### [facility] [address] [place] [address] Dr. Gianfranco Orta Erythrocyte distribution width (RBC) [Ratio] 16.1 % Critically high 11.0-15.0 [facility] Comment on above: Performed By: #### C BC #### [facility] [address] [place] [address] Dr. Gianfranco Orta Hematocrit (Bld) [Volume fraction] 35.3 % Critically low 36.0-48.0 [facility] Comment on above: Performed By: #### C BC #### [facility] [address] [place] [address] Dr. Gianfranco Orta Hemoglobin (Bld) [Mass/Vol] 11.3 g/dL Critically low 12.0-16.0 [facility] Comment on above: Performed By: #### C BC #### [facility] [address] [place] [address] Dr. Gianfranco Orta IG # 0.07 10e3/ul Critically high 0.00-0.03 [facility] Comment on above: Performed By: #### C BC #### [facility] [address] [place] [address] Dr. Gianfranco Orta IG % 0.7 % Critically high 0.0-0.5 [facility] Comment on above: Performed By: #### C BC #### [facility] [address] [place] [address] Dr. Gianfranco Orta LYMPH # 2.6 103/ul Normal 1.2-3.8 [facility] Comment on above: Performed By: #### C BC #### [facility] [address] [place] [address] Dr. Gianfranco Orta Lymphocytes/100 WBC (Bld) 26.7 % Normal 20.5-60.0 [facility] Comment on above: Performed By: #### C BC #### [facility] [address] [place] [address] Dr. Gianfranco Orta MANUAL DIFF REQ NO Normal [facility] Comment on above: Performed By: #### C BC #### [facility] [address] [place] [address] Dr. Gianfranco Orta MCH (RBC) [Entitic mass] 26.1 pg Critically low 26.7-34.0 [facility] Comment on above: Performed By: #### C BC #### [facility] [address] [place] [address] Dr. Gianfranco Orta MCHC (RBC) [Mass/Vol] 32.0 g/dL Normal 29.9-35.2 [facility] Comment on above: Performed By: #### C BC #### [facility] [address] [place] [address] Dr. Gianfranco Orta MCV (RBC) [Entitic vol] 81.5 fL Normal 81.0-99.0 [facility] Comment on above: Performed By: #### C BC #### [facility] [address] [place] [address] Dr. Gianfranco Orta MONO # 0.5 103/ul Normal 0.3-0.8 [facility] Comment on above: Performed By: #### C BC #### [facility] [address] [place] [address] Dr. Gianfranco Orta Monocytes/100 WBC (Bld) 5.2 % Normal 1.7-12.0 [facility] Comment on above: Performed By: #### C BC #### [facility] [address] [place] [address] Dr. Gianfranco Orta NEUT # 6.4 103/ul Normal 1.4-6.5 [facility] Comment on above: Performed By: #### C BC #### [facility] [address] [place] [address] Dr. Gianfranco Orta Neutrophils/100 WBC (Bld) 64.6 % Normal 43.0-75.0 [facility] Comment on above: Performed By: #### C BC #### [facility] [address] [place] [address] Dr. Gianfranco Orta Platelet mean volume (Bld) [Entitic vol] 10.8 fL Normal 9.5-13.5 [facility] Comment on above: Performed By: #### C BC #### [facility] [address] [place] [address] Dr. Gianfranco Orta PLT 322 103/ul Normal 150-450 [facility] Comment on above: Performed By: #### C BC #### [facility] [address] [place] [address] Dr. Gianfranco Orta RBC 4.33 106/ul Normal 4.20-5.40 [facility] Comment on above: Performed By: #### C BC #### [facility] [address] [place] [address] Dr. Gianfranco Orta WBC 9.9 103/ul Normal 4.0-11.0 [facility] Comment on above: Performed By: #### C BC #### [facility] [address] [place] [address] Dr. Gianfranco Orta CULTURE URINEon 08-21-2021 CULTURE URINE Culture Observations : LIGHT GROWTH OF MIXED GENITAL ROSANNE. NO POTENTIAL PATHOGENS SEEN. Normal [facility] Comment on above: Performed By: #### U RCX #### [facility] [address] [place] [address] Dr. Gianfranco Orta ER URINE PROFILEon Bilirubin Ql (U) Negative Normal NEGATIVE [facility] Comment on above: Performed By: #### U MICRO, ERUR #### [facility] [address] [place] [address] Dr. Gianfranco Orta Clarity (U) CLEAR Normal CLEAR [facility] Comment on above: Performed By: #### U MICRO, ERUR #### [facility] [address] [place] [address] Dr. Gianfranco Orta Color (U) YELLOW Normal YELLOW [facility] Comment on above: Performed By: #### U MICRO, ERUR #### [facility] [address] [address] [address] Gianfranco MEDINA A micrscopic examination will be performed if indicated. Normal [facility] Comment on above: Performed By: #### U MICRO, ERUR #### [facility] [address] [address] [address] Gianfranco Orta Glucose Ql (U) 1000 mg/dl Abnormal NEGATIVE [facility] Comment on above: Performed By: #### U MICRO, ERUR #### [facility] [address] [address] [address] Gianfranco Orta Hemoglobin Ql (U) TRACE-INTACT Abnormal NEGATIVE [facility] Comment on above: Performed By: #### U MICRO, ERUR #### [facility] [address] [place], [place] [address] Dr. Gianfranco Orta Ketones Ql (U) TRACE Abnormal NEGATIVE [facility] Comment on above: Performed By: #### U MICRO, ERUR #### [facility] [address] [address] [address] Gianfranco Orta LEUKOCYTES Negative Normal NEGATIVE [facility] Comment on above: Performed By: #### U MICRO, ERUR #### [facility] [address] [place] [address] Dr. Gianfranco Orta Nitrite Ql (U) Negative Normal NEGATIVE [facility] Comment on above: Performed By: #### U MICRO, ERUR #### [facility] [address] [address] [address] Gianfranco Orta pH (U) 6.0 [pH] Normal 5-9 [facility] Comment on above: Performed By: #### U MICRO, ERUR #### [facility] [address] [address] [address] Gianfranco Orta SPEC GRAVITY 1.010 Normal 1.005-<=1.025 [facility] Comment on above: Performed By: #### U MICRO, ERUR #### [facility] [address] [address] [address] Gianfranco Orta UA PROTEIN TRACE Normal NEGATIVE/ TRACE [facility] Comment on above: Performed By: #### U MICRO, ERUR #### [facility] [address] [place] [address] Dr. Gianfranco Orta UR MICRO IND INDICATED Normal [facility] Comment on above: Performed By: #### U MICRO, ERUR #### [facility] [address] [place] [address] Dr. Gianfranco Orta Urobilinogen Qn (U) 1.0 {Gabriela'U}/dL Normal 0.2 - 1. 0 [facility] Comment on above: Performed By: #### U MICRO, ERUR #### [facility] [address] [place] [address] Dr. Gianfranco Orta LIPASEon 08-21-2021 Lipase [Catalytic activity/Vol] 210.0 U/L Normal 23.0-300.0 [facility] Comment on above: Performed By: #### A MY, LIPA #### [facility] [address] [place] [address] Dr. Gianfranco Orta PREG HCG QUALon 08-21-2021 , QUAL Negative Normal NEGATIVE [facility] Comment on above: Performed By: #### P REG #### [facility] [address] [place] [address] Dr. Gianfranco Orta PROF 14(COMP METB)on 021 Albumin [Mass/Vol] 2.9 g/dL Critically low 3.5-5.0 [facility] Comment on above: Performed By: #### C MP #### [facility] [address] [place] [address] Dr. Gianfranco Orta Albumin/Globulin [Mass ratio] 0.7 {ratio} Normal [facility] Comment on above: Performed By: #### C MP #### [facility] [address] [place] [address] Dr. Gianfranco Orta ALP [Catalytic activity/Vol] 136 U/L Critically high 38-126 [facility] Comment on above: Performed By: #### C MP #### [facility] [address] [place], [place] [id number] Dr. Gianfranco Orta ALT [Catalytic activity/Vol] 384 U/L Critically high 9-52 [facility] Comment on above: Performed By: #### C MP #### [facility] [address] [place] [address] Dr. Gianfranco Orta Anion gap [Moles/Vol] 12.7 mmol/L Normal [facility] Comment on above: Performed By: #### C MP #### [facility] [address] [address] [address] Gianfranco Orta AST [Catalytic activity/Vol] 32 U/L Normal 14-36 [facility] Comment on above: Performed By: #### C MP #### [facility] [address] [place] [address] Dr. Gianfranco Orta Bilirubin [Mass/Vol] 0.5 mg/dL Normal 0.2-1.3 [facility] Comment on above: Performed By: #### C MP #### [facility] [address] [place] [address] Dr. Gianfranco Orta Calcium [Mass/Vol] 8.6 mg/dL Normal 8.4-10.2 [facility] Comment on above: Performed By: #### C MP #### [facility] [address] [place] [address] Dr. Gianfranco Orta Chloride [Moles/Vol] 100 mmol/L Normal 98-107 [facility] Comment on above: Performed By: #### C MP #### [facility] [address] [place] [address] Dr. Gianfranco Orta CO2 [Moles/Vol] 26.1 mmol/L Normal 22.0-30.0 [facility] Comment on above: Performed By: #### C MP #### [facility] [address] [place] [address] Dr. Gianfranco Orta Creatinine [Mass/Vol] 0.74 mg/dL Normal 0.52-1.04 [facility] Comment on above: Performed By: #### C MP #### [facility] [address] [place] [address] Dr. Gianfranco Orta EGFR-AF GIBRALTARIAN >60 Normal >=60 [facility] Comment on above: Performed By: #### C MP #### [facility] [address] [address] [address] Gianfranco Orta EGFR-NON AF GIBRALTARIAN >60 Normal >=60 [facility] Comment on above: Performed By: #### C MP #### [facility] [address] [address] [address] Gianfranco Orta Globulin (S) [Mass/Vol] 4.0 g/dL Normal [facility] Comment on above: Performed By: #### C MP #### [facility] [address] [address] [address] Gianfranco Orta Glucose [Mass/Vol] 365 mg/dL Critically high 74-106 [facility] Comment on above: Performed By: #### C MP #### [facility] [address] [address] [address] Gianfranco Orta Potassium [Moles/Vol] 3.8 mmol/L Normal 3.4-5.0 [facility] Comment on above: Performed By: #### C MP #### [facility] [address] [address] [address] Gianfranco Orta Protein [Mass/Vol] 6.9 g/dL Normal 6.1-8.2 [facility] Comment on above: Performed By: #### C MP #### [facility] [address] [address] [address] Gianfranco Orta Sodium [Moles/Vol] 135 mmol/L Critically low 137-145 [facility] Comment on above: Performed By: #### C MP #### [facility] [address] [address] [address] Gianfranco Orta Urea nitrogen [Mass/Vol] 7.0 mg/dL Normal 7.0-17.0 [facility] Comment on above: Performed By: #### C MP #### [facility] [address] [address] [address] Gianfranco Orta Urea nitrogen/Creatinine [Mass ratio] 9.5 mg/mg Normal [facility] Comment on above: Performed By: #### C MP #### [facility] [address] [place] [address] Dr. Gianfranco Orta URINE MICROSCOPIC ONLYon BACTERIA SMALL Abnormal NONE SEEN [facility] Comment on above: Performed By: #### U MICRO, ERUR #### [facility] [address] [place] [address] Dr. Gianfranco Orta Bacteria identified Cx Nom (U) INDICATED Normal [facility] Comment on above: Performed By: #### U MICRO, ERUR #### [facility] [address] [place] [address] Dr. Gianfranco Orta CAST NONE SEEN Normal NONE SEEN [facility] Comment on above: Performed By: #### U MICRO, ERUR #### [facility] [address] [place] [address] Dr. Gianfranco Orta Crystals LM Nom (Urine sed) NONE SEEN Normal NONE SEEN [facility] Comment on above: Performed By: #### U MICRO, ERUR #### [facility] [address] [place] [address] Dr. Gianfranco Orta Epithelial cells LM Ql (Urine sed) FEW Abnormal NONE SEEN /RARE [facility] Comment on above: Performed By: #### U MICRO, ERUR #### [facility] [address] [place] [address] Dr. Gianfranco Orta MUCOUS NONE SEEN Normal NONE SEEN [facility] Comment on above: Performed By: #### U MICRO, ERUR #### [facility] [address] [address] [address] Gianfranco Orta RBC 5-10 Abnormal 0-2 [facility] Comment on above: Performed By: #### U MICRO, ERUR #### [facility] [address] [place] [address] Dr. Gianfranco Orta WBC 0-2 Abnormal NONE SEEN [facility] Comment on above: Performed By: #### U MICRO, ERUR #### [facility] [address] [place] [address] Dr. Gianfranco Orta XR HAND RIGHT (MIN [...] Chikis Somers MD 03/19/18 Final result Normal [facility] XR WRIST RIGHT (MIN 3 VIEWS) on [...] Chikis Somers MD 03/19/18 Final result Normal [facility] Vital Signs Date Time Vital Sign Value Performing Clinician Inai kameron 11-27-2023 09:05-0500 Body height 157.5 cm Juan Franco PA-C Work Phone: [facility] 11-27-2023 09:05-0500 Body mass index (BMI) [Ratio] 28.17 kg/m2 Juan Franco PA-C Work Phone: [facility] 11-27-2023 09:05-0500 Body weight 69.85 kg Juan Franco PA-C Work Phone: [facility] [employer] [facility] 11-27-2023 09:05-0500 Diastolic blood pressure 64 mm[Hg] Juan [facility]-C [facility] 11-27-2023 09:05-0500 Heart rate 90 /min Juan Franco PA-C Work Phone[facility] 11-27-2023 09:05-0500 Systolic blood pressure 114 mm[Hg] Juan Franco PA-C Work Phone: [employer] 11-16-2023 11:20-0500 Body height 157.5 cm Juve Infinisourceeleni DO Work Phone: [facility] [employer] 11-16-2023 11:20-0500 Body mass index (BMI) [Ratio] 28.17 kg/m2 Juve Dotour.comyanciOwtwareeleni DO Work Phone: [facility] [employer] 11-16-2023 11:20-0500 Body weight 69.85 kg Juve Infinisourceeleni DO Work Phone: [facility] Healthcare Encounters Encounter Date Encounter Type [...] Start: 11-27-2023 End: 11-27-2023 ambulatory JUAN C [facility] Start: 11-27-2023 End: 11-27-2023 Office outpatient visit 25 minutes Juan C Salvador PA-C Work Phone: [facility] Comment on above: Altered mental statu s, unspecified altered mental status type (Primary Dx); Other cerebral palsy ([facility]); Anxiety and depression; Bipolar affective disorder, remission status unspecified ([facility]) Start: 11-23-2023 End: 11-23-2023 Emergency department patient visit [facility] Start: 11-21-2023 End: 11-21-2023 Emergency department patient visit [facility] Start: 11-19-2023 Chart abstracting Gerardo atwood PT [...] 11-04-2023 End: 11-04-2023 Emergency department patient visit [facility] Start: 10-17-2023 Telephone encounter Reema Amaya [facility] Comment on above: Neurology Referral Start: 10-02-2023 End: 10-04-2023 ambulatory SHIRA Quinn [facility] Start: 10-02-2023 End: 10-04-2023 ambulatory VICKY Quinn [facility] Start: 10-02-2023 End: 10-04-2023 ambulatory VICKY Quinn [facility] Start: 10-01-2023 End: 10-04-2023 ambulatory VICKY M [facility] Start: 10-01-2023 End: 10-04-2023 Emergency department patient visit [facility] Start: 09-24-2023 End: 09-25-2023 Emergency department patient visit [facility] Start: 09-11-2023 End: 09-11-2023 ambulatory MATTHEW GIRON Not Available Start: 12-06-2022 ambulatory Solo Navarrete Facility:[facility] Start: 08-21-2021 End: 08-21-[address] DIANELYS MARTINEZ Facility:[facility] Start: 03-09-2019 [facility] Start: 09-21-2018 End: 09-21-2018 Emergency department patient visit BRENDA Delvalle [facility] Start: 03-19-2018 End: 03-19-2018 Emergency department patient visit ROWAN SUNKER [facility] Procedures Date Procedure Procedure Detail Performing Clinician [...] Td Vaccines (3 - Td or Tdap) [facility] Start: 04-19-2026 Screening for malignant neoplasm of cervix Pap Smear [facility] Start: 11-27-2024 Adult BMI Screening Adult BMI Screen ing [facility] Start: 11-27-2024 Depression Screening Depression Scre ening [facility] Start: 11-27-2024 Tobacco Screening Tobacco Screening [facility] Start: 11-03-2024 Adult BMI Screening Adult BMI Screen ing [facility] Start: 11-03-2024 Tobacco Screening Tobacco Screening [facility] Start: 06-12-2024 End: 06-12-2024 Patient encounter procedure 06/12/2024 9:15 AM EDT Office Visit Leelee L Nelson [facility] [address] [place] [phone] You Patel MD [address] [place] [address] [address] [place] [address] Leelee L [facility] Start: 06-12-2024 End: 06-12-2024 ambulatory 06/12/2024 8:50 AM EDT Support Visit Leelee Meier [facility] [address] [place] [phone] Leelee L [facility] Start: 05-23-2024 End: 05-23-2024 Patient encounter procedure 05/23/2024 1:00 PM EDT Office Visit [facility] [address] [place] [phone] Juve Garrett DO [address] [place] [address] [facility] Start: 01-29-2024 End: 01-29-2024 Patient encounter procedure 01/29/2024 9:30 AM EDT Office Visit [facility] [address] [place] [phone] Juan Franco, PAAndreyC [address] [facility] [place] [phone] [facility] Start: 01-15-2024 End: 01-15-2024 Clinical Support 01/15/2024 2:00 PM EDT Clinical Support [facility] [address] [place] [address] Janeth Coleman, [facility] [address] [place] [address] [facility] Start: 12-13-2023 End: 12-13-2023 ambulatory 12/13/2023 9:15 AM EST Support Visit Leelee L [facility] [address] [place] [phone] Leelee L [facility] Start: 12-04-2023 End: 12-04-2023 Patient encounter procedure 12/04/2023 9:15 AM EST Office Visit [facility] [address] [place] [phone] Matthew Giron, JACQUE [address] [place] [address] [address] [facility] Start: 11-27-2023 End: 11-27-2023 Patient encounter procedure 11/27/2023 3:30 PM EST Procedure Visit [facility] [address] [place] [phone] Lexy Pascual DPM [address] [facility] [place], [place] [phone] [facility] Start: 11-27-2023 End: 11-27-2023 Patient encounter procedure 11/27/2023 9:30 AM EST Office Visit [facility] [address] [facility] [place] [phone] Juan Franco, MAVIS [address] [place] [address] [facility] Start: 11-19-2023 End: 11-19-2023 ambulatory 11/19/2023 9:30 AM EST Evaluation [facility] [address] [place] [phone] Gerardo Pete, PT [address] [place] [address] [facility] Start: 06-08-2023 Influenza vaccination Influenza Vacc ine [facility] Start: 04-22-2020 Urine screening for protein Urine Microalbumin [facility] Start: 1999 Adult BMI Follow Up Plan Adult BMI Follow Up Plan [facility] Start: 1999 Diabetic foot examination Diabetic Foot Exam [facility] Start: 1993 Depression Screening Depression Scre ening [facility] Start: 1981 Glaucoma screening Diabetic Op hthalmology Exam [facility] Start: 1981 Tobacco Counseling Tobacco Counselin g [facility] End: 11-27-2024 Sleep Deprived EEG Sleep Deprived EEG Neurology Routine Altered mental status, unspecified altered mental status type 1 Occurrences starting 11/27/2023 until 11/27/2024 [facility] Work Phone: Comment on above: 1 Occurrences starti ng 11/27/2023 until 11/27/2024 Immunizations Immunization Date Immunization Notes Care Provider Fa cililainey 10-24-2021 tetanus toxoid, reduced diphtheria toxoid, and acellular pertussis vaccine, adsorbed [facility] 08-01-2011 influenza, seasonal, injectable Juve Garrett DO Work Phone: [facility] 08-01-2011 influenza virus vaccine, unspecified formulation [facility] 04-11-2010 tetanus toxoid, reduced diphtheria toxoid, and acellular pertussis vaccine, monica Garrett DO Work Phone: [facility] Payers Date Payer Category Payer Medicare [id number] 2022 Medicare [id number] 2022 Medicare [id number] 2017 Medicaid [id number] 2017 Medicare [id number] 1981 Unknown [id number] 2.16.8 40.1.561566.3.579.2.173 1981 Unknown [id number] 2.16.8 40.1.441791.3.579.2.173 1981 Unknown [id number] 2.16.8 40.1.651994.3.579.2.173 1981 Unknown [id number] 2.16.84 0.1.167465.3.579.2.593 1981 Unknown [id number] 2.16.8 40.1.200284.3.579.2.1286 1981 Unknown [id number] 2.16.8 40.1.592643.3.579.2.1286 1981 Unknown [id number] 2.16.8 40.1.587571.3.579.2.6 1981 Unknown [id number] 2.16.8 40.1.741228.3.579.2.1286 1981 Unknown [id number] 2.16.84 0.1.240760.3.579.2.128 1981 Unknown [id number] 2.16.84 0.1.990064.3.579.2.1286 1981 Unknown [id number] 2.16.84 0.1.236821.3.579.2.128 1981 Unknown [id number] 2.16.84 0.1.958654.3.579.2.1285 1981 Unknown [id number] 2.16.84 0.1.117854.3.579.2.1285 1981 Unknown [id number] 2.16.84 0.1.708473.3.579.2.1285 1981 Unknown [id number] 2.16.84 0.1.087060.3.579.2.1285 1981 Unknown [id number] 2.16.840 .1.602688.3.579.2.1285 1981 Unknown [id number] 2.16.840. 1.415037.3.579.2.1285 1981 Unknown [id number] 2.16.84 0.1.557938.3.579.2.1258 1981 Unknown [id number] 2.16.84 0.1.773039.3.579.2.1258 1981 Unknown [id number] 2.16.84 0.1.826941.3.579.2.1258 1981 Unknown [id number] 2.16.84 0.1.499244.3.579.2.1258 1981 Unknown [id number] 2.16.84 0.1.142049.3.579.2.1258 1981 Unknown [id number] 2.16.84 0.1.582796.3.579.2.1258 1981 Unknown [id number] 2.16.84 0.1.266919.3.579.2.1258 1981 Unknown [id number] 2.16.84 0.1.660589.3.579.2.1258 1981 Unknown [id number] 2.16.84 0.1.005862.3.579.2.1258 1981 Unknown [id number] 2.16.84 0.1.649914.3.579.2.1258 1981 Unknown [id number] 2.16.84 0.1.818065.3.579.2.1259 1981 Unknown [id number] 2.16.84 0.1.434124.3.579.2.9 1981 Unknown [id number] 2.16.84 0.1.553049.3.579.2.9 1981 Unknown [id number] 2.16.84 0.1.139223.3.579.2.1258 1981 Unknown [id number] 2.16.84 0.1.971244.3.579.2.9 1981 Unknown [id number] 2.16.84 0.1.492882.3.579.2.1258 1981 Unknown [id number] 2.16.84 0.1.862718.3.579.2.9 1981 Unknown [id number] 2.16.84 0.1.220160.3.579.2.1258 1981 Unknown [id number] 2.16.84 0.1.796241.3.579.2.9 1981 Unknown [id number] 2.16.84 0.1.735425.3.579.2.9 1981 Unknown [id number] 2.16.840 .1.778272.3.579.2.1259 1959 Medicaid [id number] 1958 Medicare [id number] Social History Date Type Detail Facility Start: 10-08-1999 End: 07-04-2023 Tobacco smoking status MEIS Smokes tobacco daily [facility] Start: 10-08-1999 History of tobacco use [facility] Start: 10-21-2020 End: 07-04-2023 Cigarettes smoked current (pack per day) - Reported 0.5 [facility] Start: 06-19-2023 End: 07-04-2023 Tobacco use and exposure Smokeless tobacco non-user [facility] Start: 10-02-2023 End: 11-27-2023 Alcohol intake Current non-drinker of alcohol (finding) [facility] Start: 10-21-2020 End: 11-03-2023 Tobacco use panel [facility] Are you worried or concerned that in the next two months you may not have stable housing that you own, rent or stay in as a part of a household? No [facility] Start: 1980 Sex Assigned At Not on file P [facility] Start: 11-14-2023 End: 11-16-2023 Alcohol intake Ex-drinker (finding) [facility] Start: 06-19-2023 Tobacco Comment Smokes 6-10 ci gs per day [facility] Start: 08-17-2023 Alcohol Comment caffeine intak e: 3-4 cups per day [facility] History of Present illness Narrative 11-27-2023 Juan Franco PA-C - 11/27/2023 9:30 AM EST Note Date & Type Note Facility 11-27-2023 History of Presen t illness Narrative [facility] Office Note 11/27/2023 9:19 AM Patient info: Lindsey Knapp is a 43 y.o. female Account No.: [id number] Acct: : 1980 PCP: KADI HERMOSILLO DO [...] of significant head injury/trauma: (-) hx of BLASTING MINER infection: (+) hx of stroke/cerebrovascular malformation: reported [...] abnormality Prior Hx: Initial Consultation 10/02/23 Lindsey Knapp is a 43 y.o. female with PMH of DMT2, HTN, HLD, migraine, bipolar disorder, cerebral palsy, COPD, who presented to [facility] 10/01/23 with reports of not feeling well. [...] her name and knows she is at [facility]. She did state that she [...] PA-C 11/28/23 1407 documented in this encounter [facility] History of Present illness Narrative 11-16-2023 Juve Garrett, - 11/16/2023 10:30 AM EST Note Date & Type Note Facility 11-16-2023 History of Presen t illness Narrative Subjective Patient ID: Lindsey Knapp is a 43 y.o. female who presents [...] 03/09/2019 Past Medical History: Diagnosis Date Asthma ([facility]) Bandemia 08/02/2023 Cerebral palsy ([facility] COPD (chronic obstructive pulmonary disease) ([facility]) Delirium 10/01/2023 Depression ([facility]) Diabetes ([facility]) GERD (gastroesophageal reflux disease) Heart murmur HLD (hyperlipidemia) ([facility]) Hx of tear of meniscus of knee joint Hypertension ([facility]) Knee pain, left 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 She said she no longer has [employer] Medicare Dual Complete. She said her primary is now [employer] and secondary is [place] Medicaid. She said she hasn't seen a neurologist before so it's not for second opinion. First Attempt [facility] New patient referral received. Dx:Altered mental [...] Hermosillo DO Requesting first available provider in [facility] with PA Insurance verified: [place] [employer] [place] [employer] Not worker's comp related New patient paperwork mailed 11/09/2023 - MMV documented in this encounter [employer] Telephone encounter Note 10-17-2023 Telephone Encounter [...] accident. She said she no longer has [facility] Dual Complete. She said her primary is now Shad Siddiqi [employer] and secondary is [place] [employer]. She said she hasn't seen a neurologist before so it's not for second opinion. [facility] Telephone encounter Note 10-17-2023 Telephone Encounter [...] Hermosillo DO Requesting first available provider in [facility] with [place] [facility]: [facility] Not worker's comp related New patient paperwork mailed 11/09/2023 - [facility] Evaluation note Note Date & Type Note Facility Evaluation note Diagnosis Parotid mass- Primary Swelling, mass, or lump in head and neck Tobacco abuse Tobacco use disorder Hearing loss, unspecified hearing loss type, unspecified laterality documented in this encounter [facility] Evaluation note Note Date & Type Note Facility Evaluation note Diagnosis Altered mental status, unspecified altered mental status type- Primary Other cerebral palsy ([facility]) Anxiety and depression Bipolar affective disorder, remission status unspecified ([facility]) documented in this encounter [facility] [...] Deprived EEG Juan Franco PA-C [address] [facility] [place] [address] Referral ID Status Reason Start Date Expiration Date V isits Requested Visits Authorized [id number] Pending Review 11/27/2023 11/26/2024 1 1 Additional Source Comments INFORMATION SOURCE (unrecogn ized section and content) DATE CREATED AUTHOR 03/12/2019 [facility] DATE CREATED AUTHOR AUTHOR'S ORGANIZ ATION 08/28/2021 [facility] DATE CREATED AUTHOR AUTHOR'S ORGANIZ ATION 09/28/[address] [facility] DATE CREATED AUTHOR AUTHOR'S ORGANIZ ATION 11/28/2023 [facility] DATE CREATED AUTHOR AUTHOR'S ORGANIZ ATION 04/30/2024 [facility] EPIC Reason for Visit (unrecogniz [...] mental status type Kadi Hermosillo DO [address] [place] [address] [facility] Neurology [address] [facility] [address] Referral ID Status Reason Start Date Expiration Date Visits Requested Visits Authorized [id number] Pending Review Specialty Services Required 10/29/2023 10/28/2024 1 1 Care Teams (unrecognized sec tion and content) Wire Machine Operator Relationship Specialty Start Date End Date Kadi Hermosillo DO [address] [place], [place] [phone] PCP - General Family Medicine 01/24/22 Wire Machine Operator Relationship Specialty Start Date End Date Pawan Kerns MD [address] [place] [phone] PCP - General 04/16/23 Wire Machine Operator Relationship Specialty Start Date End Date Pawan Kerns MD [address] [place] [phone] PCP General 04/16/23 Wire Machine Operator Relationship Specialty Start Date End Date Pawan Kerns MD [address] [place] [phone] PCP General 04/16/23 Wire Machine Operator Relationship Specialty Start Date End Date Kadi Hermosillo DO [address] [facility] [place], [place] [phone] PCP - [facility] Family Medicine 11/21/23 FOR RECORDS [...] BE BASED ON THE PRIMARY CLINICAL RECORDS. [employer] [facility]. provides no warranty or guarantee of the accuracy or completeness of information in this document.
--- NOTE | 2024-05-21 08:52 | P.CN_ITS ---
Consult Note: HPI Data of Consult Patient: known to practice within the last 3 years Requesting Physician: Christina Chiu NP Primary Care Provider: Kadi hCung Consult Narrative Reason for consult: f/u Narrative: Lindsey Knapp a pleasant 43 year old female presents for evaluation and management of chronic mid low back pain. She describes the pain as being 1.5/10 increasing to 6-7/10 pain, sharp in character, increased with activity such as standing, walking and performing transitioning maneuvers. Denied any change in bowel and bladder habits or new sensorimotor change in the lower extremities. reports mild benefit from OTC tylenol and xanaflex 2-4mg BID PRN prn. Recently underwent Left L1/2 L2/3 MBB #1 and #2 with >80% improvement in pain and function immediately following and hours after. cc:: CC: Christina Chiu NP Review of Systems ROS Status of ROS 10 or more systems reviewed and unremark able except as noted in history and below Musculoskeletal Reports: back pain Meds Home Medications and Allergies Home Medications ?Medication ?Instructions ?Recorded ?Confirmed ?Type albuterol sulfate 90 mcg/actuation 1 inh inhalation QID 02/27/24 05/06/24 History aerosol inhaler insulin aspart U-100 100 unit/mL 6 unit subcut TID 02/27/24 05/06/24 History (3 mL) subcutaneous pen (Novolog FlexPen U-100 Insulin aspart) insulin glargine 100 unit/mL 10 unit subcut QPM 02/27/24 05/06/24 History subcutaneous solution (Lantus U-100 Insulin) insulin lispro 100 unit/mL 10 unit subcut TID 02/27/24 05/06/24 History subcutaneous cartridge lisinopril 20 mg tablet 20 mg PO DAILY 02/27/24 05/06/24 History metformin 1,000 mg tablet 1,000 mg PO DAILY 02/27/24 05/06/24 History omeprazole 40 mg capsule,delayed 40 mg PO DAILY 02/27/24 05/06/24 History release rosuvastatin 40 mg tablet 40 mg PO DAILY 02/27/24 05/06/24 History sitagliptin phosphate 25 mg tablet 25 mg PO DAILY 02/27/24 05/06/24 History (Januvia) tizanidine 4 mg capsule (Zanaflex) 4 mg PO BID PRN muscle spasticity 02/27/24 05/06/24 History Allergies Allergy/AdvReac Type Severity Reaction Status Date / Time ibuprofen AdvReac Unknown Unknown Verified 05/06/24 08:08 Exam Constitutional Documenting provider has reviewed patient's vital signs: yes Common normals: no apparent distress, oriented x3, healthy appearing, alert and well nourished General appearance: cooperative HENMT Common normals: normocephalic, hearing grossly normal bilaterally and moist oral mucous membranes Head and scalp: normocephalic Eye Common normals: PERRL Pupil: PERRL Neck & C-Spine Common normals: full ROM General: normal visual inspection Chest Common normals: inspection of chest normal Respiratory Common normals: normal respiratory effort, no retractions and no use of accessory muscles Back & Pelvis Lumbar spine/lower back: ROM limited, pain with ROM, lumbar spinal tenderness and straight leg raise negative bilaterally Other: left positive facet loading, pain over L1-3 facets no radiculopathy no spasms noted strength 5/5 in BLE Extremity Common normals: normal to inspection and full ROM Neuro Common normals: oriented x3, CN's II-XII intact bilaterally, moves all extremities, no focal motor deficits, no sensory deficits noted and deep tendon reflexes 2+ bilaterally Sensorium/orientation: alert Motor exam: strength 5/5 throughout and no movement abnormalities noted Psych Common normals: mental status grossly normal, thought process normal, cooperative, affect normal, speech normal and activity/motor behavior normal Speech: normal speech Thought process: normal thought process Results Additional Findings Additional findings: If on a controlled substance or opioids, I have checked an [place]AR[place] report on this patient and there are no aberrancies noted in the prescribing history.??If on a controlled substance or opioid a drug screen was completed and reviewed within the last year, and if there has not been a drug screen completed we ordered one today to monitor higher risk, state monitored pain medication use. As part of providing excellent, safe, comprehensive care, the following was completed at our patient's visit: 1. A medication reconciliation and review to ensure accurate knowledge of current/active medications, including asking our patients to inform us about any [id number] medications or herbal remedies/nutritional supplements/alternative remedies. 2. A review to specifically ensure our patients have had annual screening for screening for depression, screening for tobacco use, and screening for unhealthy alcohol use. For concerning screenings had a discussion with the patient, provided patient education, and recommended follow-up with primary care provider when appropriate. If patient noted with a risk of falling, they received education on strength, gait, and balance training to prevent future risk of falling. Assessment and Plan Assessment and Plan (1) Lumbar spondylosis: (2) Myalgia: Plan left L1-2 L2-3 facet RFA under fluoroscopy with IV sedation due to inability to lie flat/still for the procedure due to anxiety/pain as there are concerns for performing the procedure safely continue current medications f/u 1 month after RFA complete
== END 2024-05-21 08:37 | disposition home or self-care (01) ==
LOC: PM 08:36
PROVIDERS: PCP Family Medicine; Visit Provider Nurse Practitioner
DX: M47.816 Spondylosis without myelopathy or radiculopathy, lumbar region (principal); M79.10 Myalgia, unspecified site
CPT/HCPCS: G0463

== ENCOUNTER 2024-06-02 08:07 | Day surgery (SDC) | payer MEDICARE, MEDICAID, SELFPAY ==
--- OUTSIDE RECORDS SUMMARY | 2024-06-02 08:25 | XMS_ITS | CCD ---
Author Organization [facility] CliniSypr Care Team Providers Care Lead Installer Name Role Phone ROWAN CASANOVA Primary Care Unavailable BRENDA WEI Attending Unavailab JUICE Sweet Attending Unavailable JUAN, DR IVORY Consulting [facility] DR GOLDSMITH Primary Care Unavailable JUAN, DR IVORY Attending Unavailable JUAN, DR IVORY Admitting Unavailable JESÚS, DR CASTRO Consulting Unavailable Solo Navarrete Attending Unavailable Rumschlag DO, Kadi K Primary Care Provider [phone] Pawan Kerns MD Primary Care Provider RUMSCHLAG, [...] Unavailable Kadi Hermosillo DO Primary Care Provider [phone] MATTHEW GIRON Attending Unavailable GIRON, MATTHEW Godoy [...] Amoxicillin; Translations: [AMOXICILLIN] Drug Allergy 02-14-20 17 [facility] (2 sources) Aspirin; Translations: [ASPIRIN] Drug Allergy 02-14-20 17 [facility] (2 sources) Amoxicillin Drug Allergy 02-14-20 17 [employer] [facility] Work Phone: (2 sources) Aspirin Drug Allergy 02-14-20 Other (See Comments) [employer] [facility] (6 sources) Ibuprofen; Translations: [IBUPROFEN] Drug Allergy 02-14-20 17 Other (See Comments) [facility] (3 sources) traMADol; Translations: [TRAMADOL HCL] Drug Allergy 03-09-20 19 Rash [employer] [facility] (3 sources) Aluminum aspirin Drug Allergy 12-10-19 17 [facility] (3 sources) HYDROmorphone Drug Allergy 04-18-20 23 [facility] (3 sources) Ketorolac trometamol Allergy to substance 04-18-20 23 [facility] (3 sources) Penicillins Drug Intolerance 12-10-19 17 Rash [facility] (3 sources) traMADol Drug Allergy 03-09-20 19 Rash [facility] (3 sources) Amoxicillin-Pot Clavulanate Drug Allergy 04-18-20 23 [facility] Work Phone: Medications Current Medications Medication Drug Class(es) Dates Sig (Normalized) Sig (Original) acetaminophen 325 mg / HYDROcodone bitartrate 5 mg oral tablet (3 sources) Opioid Agonist Start: 07-17-2023 HYDROcodone-aceta minophen ([place]) 5-325 MG tablet albuterol 0.83 mg/ml inhalation [...] mg total) by mouth nightly. 0 Active izdqwqay-jiqo-QA-calciu m &mins (THERAGRAN-M) 9 mg iron-400 mcg tablet (2 sources) izngiagv-tfjq-UW -ca lcium &mins (THERAGRAN-M) 9 mg iron-400 [...] Normal NEG [facility] Comment on above: Performed By: #### C BCA, CMP, 85733-3, 5643-2 #### [facility] ([id number]) [address] [place] [address], [place] [address] SARS/FLU A+B/RSV by NAAT/Mol ecularon 11-21-2023 SARS/FLU [...] operators who are performing tests using either Izooble DX or Vitrina systems and is limited to laboratories that [...] repeat. Fact Sheet for Healthcare Providers: https://www.fda.gov/me pascual/983922/download Fact Sheet for Patients: https://www.fda.gov/me pascual/207955/download Normal [facility] Comment on above: Performed By: #### C SARAH ANDERSON, 46246-0, 5643-2 #### [facility] ([id number]) [address] [place] [address] CBC AND AUTO DIFFon 10-03-20 ABSOLUTE BASOPHIL 0.0 X10E9/L Normal 0.0-0.2 [facility] Comment on above: Performed By: #### C SARAH ANDERSON, 24013-0, 5643-2 #### [facility] ([id number]) [address] [place] [address] 96141 ABSOLUTE NEUTROPHIL 3.0 X10E9/L Normal 1.5-6.6 [facility] Comment on above: Performed By: #### Aaron ANDERSON CMP, , 5642-2 #### [facility] ([id number]) [address] [place] [address] 35389 Basophils/100 WBC (Bld) 0.6 % Normal [facility] Comment on above: Performed By: #### Aaron ANDERSON, CMP, , 5642- #### [facility] ([id number]) [address] [place] [address] 05273 Eosinophils (Bld) [#/Vol] 0.1 10*3/uL Normal 0.0-0.4 [facility] Comment on above: Performed By: #### Aaron ANDERSON CMP, , 5642- #### [facility] ([id number]) [address] [place] [address] 30680 Eosinophils/100 WBC (Bld) 0.9 % Normal [facility] Comment on above: Performed By: #### Aaron ANDERSON, CMP, , 5642-2 #### [facility] ([id number]) [address] [place] [address] 13054 Erythrocyte distribution width (RBC) [Ratio] 13.6 % Normal 11.5-15.0 [facility] Comment on above: Performed By: #### Aaron ANDERSON, CMP, , 56-2 #### [facility] ([id number]) [address] [place] [address] 34004 Hematocrit (Bld) [Volume fraction] 39.7 % Normal 35-47 [facility] Comment on above: Performed By: #### Aaron ANDERSON CMP, , 43-2 #### [facility] ([id number]) [address] [place] [address] 20018 Hemoglobin (Bld) [Mass/Vol] 13.1 g/dL Normal 11.7-15.5 [facility] Comment on above: Performed By: #### Aaron ANDERSON CMP, , 5642- #### [facility] ([id number]) [address] [place] [address] 96817 Lymphocytes (Bld) [#/Vol] 2.2 10*3/uL Normal 1.0-3.5 [facility] Comment on above: Performed By: #### Aaron ANDERSON CMP, , 5642- #### [facility] ([id number]) [address] [place] [address] 18233 Lymphocytes/100 WBC (Bld) 36.6 % Normal [facility] Comment on above: Performed By: #### Aaron ANDERSON CMP, , 5642- #### [facility] ([id number]) [address] [place] [address] 29112 MCH (RBC) [Entitic mass] 28.5 pg Normal 27-34 [facility] Comment on above: Performed By: #### Aaron ANDERSON CMP, , 5642- #### [facility] ([id number]) [address] [place] [address] 77427 MCHC (RBC) [Mass/Vol] 32.9 g/dL Normal 32-36 [facility] Comment on above: Performed By: #### Aaron ANDERSON CMP, , 5642- #### [facility] ([id number]) [address] [place] [address] 16050 MCV (RBC) [Entitic vol] 87 fL Normal 80-100 [facility] Comment on above: Performed By: #### Araon ANDERSON CMP, , 5642-2 #### [facility] ([id number]) [address] [place] [address] 36225 Monocytes (Bld) [#/Vol] 0.8 10*3/uL Normal 0-0.9 [facility] Comment on above: Performed By: #### Aaron ANDERSON, CMP, , 43-2 #### [facility] ([id number]) [address] [place] [address] 57789 Monocytes/100 WBC (Bld) 13.1 % Normal [facility] Comment on above: Performed By: #### Aaron ANDERSON, CMP, , 43-2 #### [facility] ([id number]) [address] [place] [address] 32961 Neutrophils/100 WBC (Bld) 48.8 % Normal [facility] Comment on above: Performed By: #### Aaron ANDERSON, CMP, , 43-2 #### [facility] ([id number]) [address] [place] [address] 02156 Platelet mean volume (Bld) [Entitic vol] 7.7 fL Normal 7-12 [facility] Comment on above: Performed By: #### Aaron ANDERSON, CMP, , 5643-2 #### [facility] ([id number]) [address] [place] [address] 89321 Platelets (Bld) [#/Vol] 392 10*3/uL Normal 150-450 [facility] Comment on above: Performed By: #### Aaron ANDERSON, CMP, , 5643-2 #### [facility] ([id number]) [address] [place] [address] 99571 RBC COUNT 4.58 X10E12/L Normal 3.80-5.20 [facility] Comment on above: Performed By: #### Aaron ANDERSON, CMP, , 5643-2 #### [facility] ([id number]) [address] [place] [address] 95114 WBC (Bld) [#/Vol] 6.1 10*3/uL Normal 4.0-11.0 [facility] Comment on above: Performed By: #### C BCA, CMP, , 5643-2 #### [facility] ([id number]) [address] [place] [address] 66977 COMPREHENSIVE METABOLIC PANE [facility] ([place], [place]) 10-03-2023 Albumin [Mass/Vol] 3.6 g/dL Normal 3.2-5.3 [facility] Comment on above: Performed By: #### C BCA, CMP, , 43-2 #### [facility] ([id number]) [address] [place] [address] 84440 ALP [Catalytic activity/Vol] 86 U/L Normal 39-130 [facility] Comment on above: Performed By: #### C BCA, CMP, , 43-2 #### [facility] ([id number]) [address] [place] [address] 34611 ALT [Catalytic activity/Vol] 24 U/L Normal 0-31 [facility] Comment on above: Performed By: #### C BCA, CMP, , 5643-2 #### [facility] ([id number]) [address] [place] [address] 81320 Anion gap [Moles/Vol] 7 mmol/L Normal 5-15 [facility] Comment on above: Performed By: #### C BCA, CMP, , 5643-2 #### [facility] ([id number]) [address] [place] [address] 78323 AST [Catalytic activity/Vol] 36 U/L Normal 0-41 [facility] Comment on above: Performed By: #### C BCA, CMP, , 5643-2 #### [facility] ([id number]) [address] [place] [address] 26282 Bilirubin [Mass/Vol] 0.7 mg/dL Normal 0.3-1.2 [facility] Comment on above: Performed By: #### C JUSTIN CMP, , 5643-2 #### [facility] ([id number]) [address] [place] [address] 06399 Calcium [Mass/Vol] 8.5 mg/dL Normal 8.5-10.5 [facility] Comment on above: Performed By: #### C JUSTIN CMP, , 5643-2 #### [facility] ([id number]) [address] [place] [address] 96136 Chloride [Moles/Vol] 107 mmol/L Normal 98-109 [facility] Comment on above: Performed By: #### C JUSTIN CMP, , 5643-2 #### [facility] ([id number]) [address] [place] [address] 39842 CO2 [Moles/Vol] 23 mmol/L Normal 22-32 [facility] Comment on above: Performed By: #### C JUSTIN CMP, , 5643-2 #### [facility] ([id number]) [address] [place] [address] 91257 Creatinine [Mass/Vol] 0.70 mg/dL Normal 0.40-1.00 [facility] Comment on above: Result Comment: METH OD TRACEABLE TO IDMS STANDARD Performed By: #### C JUSTIN CMP, , 5643-2 #### [facility] ([id number]) [address] [place] [address] 45984 eGFR (CKD-EPI) NON-RACE DEPENDENT >90 Normal >59 [facility] Comment on above: Result Comment: Reported eGFR is based on the CKD-EPI 2020 equation that does not use a race coefficient. Performed By: #### C JUSTIN, CMP, , 5643-2 #### [facility] ([id number]) [address] [place] [address] 01535 Glucose [Mass/Vol] 78 mg/dL Normal 65-99 [facility] Comment on above: Performed By: #### C JUSTIN, [facility], , 56-2 #### [facility] ([id number]) [address] [place] [address] 60153 Potassium [Moles/Vol] 3.6 mmol/L Normal 3.5-5.0 [facility] Comment on above: Performed By: #### C JUSTIN, CMP, , 56-2 #### [facility] ([id number]) [address] [place] [address] 23499 Protein [Mass/Vol] 6.6 g/dL Normal 6.0-8.0 [facility] Comment on above: Performed By: #### C JUSTIN, [facility], , 5643-2 #### [facility] ([id number]) [address] [place] [address] 35640 Sodium [Moles/Vol] 137 mmol/L Normal 134-146 [facility] Comment on above: Performed By: #### C JUSTIN, CMP, , 5643-2 #### [facility] ([id number]) [address] [place] [address] 11884 Urea nitrogen [Mass/Vol] 17 mg/dL Normal 5-23 [facility] Comment on above: Performed By: #### C BCA, CMP, , 5642-2 #### [facility] ([id number]) [address] [place] [address] 14741 MAGNESIUMon 10-03-2023 Magnesium [Mass/Vol] 1.9 mg/dL Normal 1.8-2.6 [facility] Comment on above: Performed By: #### Aaron ANDERSON CMP, , 5642-2 #### [facility] ([id number]) [address] [place] [address] 18368 AMMONIAon 10-02-2023 Ammonia (P) [Moles/Vol] 33 umol/L Normal 11-35 [facility] Comment on above: Performed By: #### Aaron ANDERSON CMP, , 5642-2 #### [facility] ([id number]) [address] [place] [address] 51753 BLOOD CULTUREon 10-02-2023 Bacteria identified Aer cx Nom (Bld) SPECIMEN NOTES SUBOPTIMAL VOLUME OF BLOOD COLLECTED, RESULTS MAY BE AFFECTED. CULTURE RESULTS NO GROWTH 5 DAYS Normal [facility] Comment on above: Performed By: #### Aaron ANDERSON CMP, , 5642-2 #### [facility] ([id number]) [address] [place] [address] Bacteria identified Aer cx Nom (Bld) SPECIMEN NOTES SUBOPTIMAL VOLUME OF BLOOD COLLECTED, RESULTS MAY BE AFFECTED. CULTURE RESULTS NO GROWTH 5 DAYS Normal [facility] Comment on above: Performed By: #### Aaron ANDERSON CMP, , 56- #### [facility] ([id number]) [address] [place] [address] 20109 CBC AND AUTO DIFFon 10-02-20 23 ABSOLUTE BASOPHIL 0.1 X10E9/L Normal 0.0-0.2 [facility] Comment on above: Performed By: #### Aaron ANDERSON CMP, , 5643-2 #### [facility] ([id number]) [address] [place] [address] 00095 ABSOLUTE NEUTROPHIL 8.5 X10E9/L High 1.5-6.6 [facility] Comment on above: Performed By: #### Aaron ANDERSON CMP, , 56-2 #### [facility] ([id number]) [address] [place] [address] 28500 Basophils/100 WBC (Bld) 0.5 % Normal [facility] Comment on above: Performed By: #### Aaron ANDERSON CMP, , 56-2 #### [facility] ([id number]) [address] [place] [address] 36879 Eosinophils (Bld) [#/Vol] 0.1 10*3/uL Normal 0.0-0.4 [facility] Comment on above: Performed By: #### Aaron ANDERSON CMP, , 5642- #### [facility] ([id number]) [address] [place] [address] 32712 Eosinophils/100 WBC (Bld) 0.6 % Normal [facility] Comment on above: Performed By: #### Aaron ANDERSON CMP, , 5642-2 #### [facility] ([id number]) [address] [place] [address] 58276 Erythrocyte distribution width (RBC) [Ratio] 13.6 % Normal 11.5-15.0 [facility] Comment on above: Performed By: #### Aaron ANDERSON CMP, , 56- #### [facility] ([id number]) [address] [place] [address] 12587 Hematocrit (Bld) [Volume fraction] 43.3 % Normal 35-47 [facility] Comment on above: Performed By: #### Aaron ANDERSON, CMP, , 5642- #### [facility] ([id number]) [address] [place] [address] 35209 Hemoglobin (Bld) [Mass/Vol] 14.4 g/dL Normal 11.7-15.5 [facility] Comment on above: Performed By: #### Aaron ANDERSON CMP, , 43-2 #### [facility] ([id number]) [address] [place] [address] 88841 Lymphocytes (Bld) [#/Vol] 3.2 10*3/uL Normal 1.0-3.5 [facility] Comment on above: Performed By: #### Aaron ANDERSON CMP, , 5642- #### [facility] ([id number]) [address] [place] [address] 75704 Lymphocytes/100 WBC (Bld) 24.9 % Normal [facility] Comment on above: Performed By: #### Aaron ANDERSON CMP, , 5642- #### [facility] ([id number]) [address] [place] [address] 48566 MCH (RBC) [Entitic mass] 28.9 pg Normal 27-34 [facility] Comment on above: Performed By: #### Aaron ANDERSON CMP, , 5642-2 #### [facility] ([id number]) [address] [place] [address] 97227 MCHC (RBC) [Mass/Vol] 33.4 g/dL Normal 32-36 [facility] Comment on above: Performed By: #### Aaron ANDERSON CMP, , 5642- #### [facility] ([id number]) [address] [place] [address] 30464 MCV (RBC) [Entitic vol] 87 fL Normal 80-100 [facility] Comment on above: Performed By: #### Aaron ANDERSON, CMP, , 5642-2 #### [facility] ([id number]) [address] [place] [address] 00656 Monocytes (Bld) [#/Vol] 1.1 10*3/uL High 0-0.9 [facility] Comment on above: Performed By: #### Aaron ANDERSON CMP, , 5642-11 #### [facility] ([id number]) [address] [place] [address] 86097 Monocytes/100 WBC (Bld) 8.5 % Normal [facility] Comment on above: Performed By: #### Aaron ANDERSON, CMP, , 5642- #### [facility] ([id number]) [address] [place] [address] 86832 Neutrophils/100 WBC (Bld) 65.5 % Normal [facility] Comment on above: Performed By: #### Aaron ANDERSON, CMP, , 5642- #### [facility] ([id number]) [address] [place] [address] 94557 Platelet mean volume (Bld) [Entitic vol] 7.7 fL Normal 7-12 [facility] Comment on above: Performed By: #### Aaron ANDERSON, CMP, , 5642- #### [facility] ([id number]) [address] [place] [address] 77036 Platelets (Bld) [#/Vol] 510 10*3/uL High 150-450 [facility] Comment on above: Performed By: #### Aaron ANDERSON, CMP, , 5642- #### [facility] ([id number]) [address] [place] [address] 81134 RBC COUNT 4.99 X10E12/L Normal 3.80-5.20 [facility] Comment on above: Performed By: #### Aaron BCA, CMP, , 5642- #### [facility] ([id number]) [address] [place] [address] 72431 WBC (Bld) [#/Vol] 13.0 10*3/uL High 4.0-11.0 [facility] Comment on above: Performed By: #### Aaron BCA, CMP, , 5642-2 #### [facility] ([id number]) [address] [place] [address] 21953 COMPREHENSIVE METABOLIC PANE Artur 10-02-2023 Albumin [Mass/Vol] 4.3 g/dL Normal 3.2-5.3 [facility] Comment on above: Performed By: #### C BCA, CMP, , 43-2 #### [facility] ([id number]) [address] [place] [address] 50112 ALP [Catalytic activity/Vol] 98 U/L Normal 39-130 [facility] Comment on above: Performed By: #### C BCA, CMP, , 43-2 #### [facility] ([id number]) [address] [place] [address] 83199 ALT [Catalytic activity/Vol] 17 U/L Normal 0-31 [facility] Comment on above: Performed By: #### C BCA, CMP, , 43-2 #### [facility] ([id number]) [address] [place] [address] 48136 Anion gap [Moles/Vol] 8 mmol/L Normal 5-15 [facility] Comment on above: Performed By: #### C BCA, CMP, , 5643-2 #### [facility] ([id number]) [address] [place] [address] 45412 AST [Catalytic activity/Vol] 24 U/L Normal 0-41 [facility] Comment on above: Performed By: #### C BCA, CMP, , 5643-2 #### [facility] ([id number]) [address] [place] [address] 47488 Bilirubin [Mass/Vol] 1.0 mg/dL Normal 0.3-1.2 [facility] Comment on above: Performed By: #### C BCA, CMP, , 5643-2 #### [facility] ([id number]) [address] [place] [address] 95169 Calcium [Mass/Vol] 9.3 mg/dL Normal 8.5-10.5 [facility] Comment on above: Performed By: #### C JUSTIN, CMP, , 43-2 #### [facility] ([id number]) [address] [place] [address] 37612 Chloride [Moles/Vol] 109 mmol/L Normal 98-109 [facility] Comment on above: Performed By: #### C JUSTIN CMP, , 5642- #### [facility] ([id number]) [address] [place] [address] 26509 CO2 [Moles/Vol] 24 mmol/L Normal 22-32 [facility] Comment on above: Performed By: #### C JUSTIN, CMP, , 5642-2 #### [facility] ([id number]) [address] [place] [address] 11218 Creatinine [Mass/Vol] 0.81 mg/dL Normal 0.40-1.00 [facility] Comment on above: Result Comment: METH OD TRACEABLE TO IDMS STANDARD Performed By: #### C JUSTIN CMP, , 5642-2 #### [facility] ([id number]) [address] [place] [address] 48250 eGFR (CKD-EPI) NON-RACE DEPENDENT >90 Normal >59 [facility] Comment on above: Result Comment: Reported eGFR is based on the CKD-EPI 2020 equation that does not use a race coefficient. Performed By: #### C JUSTIN, CMP, , 5643-2 #### [facility] ([id number]) [address] [place] [address] 67011 Glucose [Mass/Vol] 174 mg/dL High 65-99 [facility] Comment on above: Performed By: #### C JUSTIN, CMP, , 5643-2 #### [facility] ([id number]) [address] [place] [address] 42982 Potassium [Moles/Vol] 3.9 mmol/L Normal 3.5-5.0 [facility] Comment on above: Performed By: #### C JUSTIN, CMP, , 43-2 #### [facility] ([id number]) [address] [place] [address] 21019 Protein [Mass/Vol] 7.9 g/dL Normal 6.0-8.0 [facility] Comment on above: Performed By: #### C JUSTIN, CMP, , 5643-2 #### [facility] ([id number]) [address] [place] [address] 95090 Sodium [Moles/Vol] 141 mmol/L Normal 134-146 [facility] Comment on above: Performed By: #### C JUSTIN, CMP, , 5643-2 #### [facility] ([id number]) [address] [place] [address] 77762 Urea nitrogen [Mass/Vol] 10 mg/dL Normal 5-23 [facility] Comment on above: Performed By: #### C JUSTIN, CMP, , 5643-2 #### [facility] ([id number]) [address] [place] [address] 75685 CRP [Mass/Vol]on 10-02-2023 C REACTIVE PROTEIN 1.0 mg/dL High 0.000-0.744 [facility] Comment on above: Performed By: #### C BCA, CMP, , 5643-2 #### [facility] ([id number]) [address] [place] [address] BRAIN WO CONTon 12-26-[address] [...] PM Normal [facility] FREE T4on 10-02-2023 Free T4 [Mass/Vol] 0.98 ng/dL Normal 0.61-1.60 [facility] Comment on above: Performed By: #### 1 0839-9, 52460-6, TSHR, 3024-7 ####[facility] ([id number])[address] [place] [address]#### 2132-9 ####[facility] ([id number])[address] [place] [address], [address] [place] [address] 70527 Glucose Glucometer (BldC) [M ass/Vol]on 10-02-2023 Glucose [Mass/Vol] 146 mg/dL High 65-99 [facility] Glucose [Mass/Vol] 127 mg/dL High 65-99 [facility] Glucose [Mass/Vol] 136 mg/dL High 65-99 [facility] Glucose [Mass/Vol] 114 mg/dL High 65-99 [facility] Glucose [Mass/Vol] 152 mg/dL High 65-99 [facility] Glucose [Mass/Vol] 188 mg/dL High 65-99 [facility] Glucose [Mass/Vol] 221 mg/dL High 65-99 [facility] HGB A1C (GLYCO-HGB)on 2022 Glucose [Mass/Vol] 194 mg/dL Normal [facility] Comment on above: Performed By: #### 1 0839-9, 98074-7, TSHR, 3024-7 ####[facility] ([id number])[address] [place] [address] 56188#### 2132-9 ####[facility] ([id number])[address] [place] [address], [address] [address] HbA1c (Bld) [Mass fraction] 8.4 % High 4.4-5.6 [facility] Comment on above: Result Comment: NOTE ADA Guidelines Result HgbA1c Normal : less than 5.7 % Prediabetes : 5.7 % to 6.4 % Diabetes : > 6.4 % Use with caution in patients with abnormal hemoglobin variants as the half-life of red blood cells and in vivo glycation rates are affected. Performed By: #### 1 0839-9, 67190-3, TSHR, 3024-7 ####[facility] ([id number])[address] [place] [id number]#### 2132-9 ####[facility] ([id number])[address] [place] [address], [address] [address] MAGNESIUMon 10-02-2023 Magnesium [Mass/Vol] 2.2 mg/dL Normal 1.8-2.6 [facility] Comment on above: Performed By: #### C BCA, CMP, 39766-9, 5643-2 #### [facility] ([id number]) [address] [place] [id number] MR BRAIN W CONTon 10-02-2023 MR BRAIN [...] PM Normal [facility] MR BRAIN WO CONTon 3 MR BRAIN [...] AM Normal [facility] Procalcitonin IA [Mass/Vol]o n 10-02-2023 PROCALCITONIN <0.05 Normal <0.05 [facility] Comment on above: Result Comment: NOTE <0.50 ng/mL - Low risk of severe sepsis and/or septic shock. <2.00 ng/mL - Recommend retesting within 6-24 hours. >2.00 ng/mL - High risk of sepsis and/or septic shock. Performed By: #### 1 0839-9, 34034-6, TSHR, 3024-7 ####[facility] ([id number])[address] [place] [address] 12843#### 9 ####[facility] ([id number])[address] [facility], [address] [place] [address] 83648 THYROID PROFILEon 10-02-2023 Free T4 [Mass/Vol] 1.19 ng/dL Normal 0.61-1.60 [facility] Comment on above: Performed By: #### C BCA, CMP, 11344-5, 5643-2 #### [facility] ([id number]) [address] [place] [address] 96885 TSH 2.52 uIU/mL Normal 0.49-4.67 [facility] Comment on above: Performed By: #### C BCA, CMP, , 5643-2 #### [facility] ([id number]) [address] [place] [address] 71839 TROPONIN Ion 10-02-2023 Troponin I.cardiac [Mass/Vol] ng/mL Normal 0.00-0.04 [facility] Comment on above: Performed By: #### 1 0839-9, 41608-2, TSHR, 3024-7 ####[facility] ([id number])[address] [place] [address] 43100#### 2131-9 ####[facility] ([id number])[address] [facility], [address] [place] [address] 76318 TSH WITH REFLEXon 10-02-2023 TSH 6.43 uIU/mL High 0.49-4.67 [facility] Comment on above: Performed By: #### 1 0839-9, 66027-6, TSHR, 3024-7 ####[facility] ([id number])[address] [place] [address]#### 2132-9 ####[facility] ([id number])[address], [address] [place] [address] 74534 URIC ACIDon 10-02-2023 Urate [Mass/Vol] 3.5 mg/dL Normal 2.6-7.2 [facility] Comment on above: Performed By: #### C BCA, CMP, 84355-3, 5643-2 #### [facility] ([id number]) [address] [place] [address] 38542 VITAMIN B12on 10-02-2023 Cobalamin (Vitamin B12) [Mass/Vol] 313 pg/mL Normal 180-914 [facility] Comment on above: Performed By: #### 1 0839-9, 28701-8, TSHR, 3024-7 ####[facility] ([id number])[address] [place] [address] 80213#### 2132-9 ####[facility] ([id number])[address], [address] [place] [address] 10684 XR CHEST 1 VWon 10-02-2023 XR CHEST [...] AM Normal [facility] ACETAMINOPHENon 10-01-2023 Acetaminophen [Mass/Vol] ug/mL Low 10.0-30.0 [facility] Comment on above: Result Comment: Refe rence ranges are for therapeutic limits. Performed By: #### 3 298-7, 4024-6, 46319-3 #### [facility] ([id number]) [address] [place] [address] 28617 AMMONIAon 10-01-2023 Ammonia (P) [Moles/Vol] 30 umol/L Normal 11-35 [facility] Comment on above: Performed By: #### 3 298-7, 4024-6, 60336-9 ####[facility] ([id number])[address] [place] [address] 53596 CBC AND AUTO DIFFon 10-01-20 ABSOLUTE BASOPHIL 0.1 X10E9/L Normal 0.0-0.2 [facility] Comment on above: Performed By: #### C JUSTIN CMP, , 5643-2 #### [facility] ([id number]) [address] [place] [address] 18331 ABSOLUTE NEUTROPHIL 9.1 X10E9/L High 1.5-6.6 [facility] Comment on above: Performed By: #### C JUSTIN, CMP, , 5643-2 #### [facility] ([id number]) [address] [place] [address] 64067 Basophils/100 WBC (Bld) 0.6 % Normal [facility] Comment on above: Performed By: #### C BCA, CMP, , 5643-2 #### [facility] ([id number]) [address] [place] [address] 05548 Eosinophils (Bld) [#/Vol] 0.1 10*3/uL Normal 0.0-0.4 [facility] Comment on above: Performed By: #### Aaron ANDERSON CMP, , 56-2 #### [facility] ([id number]) [address] [place] [address] 15065 Eosinophils/100 WBC (Bld) 1.1 % Normal [facility] Comment on above: Performed By: #### Aaron ANDERSON [facility], , 5642-2 #### [facility] ([id number]) [address] [place] [address] 93801 Erythrocyte distribution width (RBC) [Ratio] 13.6 % Normal 11.5-15.0 [facility] Comment on above: Performed By: #### Aaron ANDERSON [facility], , 5642- #### [facility] ([id number]) [address] [place] [address] 70732 Hematocrit (Bld) [Volume fraction] 43.2 % Normal 35-47 [facility] Comment on above: Performed By: #### Aaron ANDERSON [facility], , 56-2 #### [facility] ([id number]) [address] [place] [address] 39279 Hemoglobin (Bld) [Mass/Vol] 14.5 g/dL Normal 11.7-15.5 [facility] Comment on above: Performed By: #### Aaron ANDERSON CMP, , 5642-2 #### [facility] ([id number]) [address] [place] [address] 46899 Lymphocytes (Bld) [#/Vol] 2.4 10*3/uL Normal 1.0-3.5 [facility] Comment on above: Performed By: #### Aaron ANDERSON CMP, , 43-2 #### [facility] ([id number]) [address] [place] [address] 06156 Lymphocytes/100 WBC (Bld) 18.7 % Normal [facility] Comment on above: Performed By: #### Aaron ANDERSON CMP, , 5642- #### [facility] ([id number]) [address] [place] [address] 92796 MCH (RBC) [Entitic mass] 28.8 pg Normal 27-34 [facility] Comment on above: Performed By: #### Aaron ANDERSON CMP, , 5642-2 #### [facility] ([id number]) [address] [place] [address] 11786 MCHC (RBC) [Mass/Vol] 33.5 g/dL Normal 32-36 [facility] Comment on above: Performed By: #### Aaron ANDERSON CMP, , 5642- #### [facility] ([id number]) [address] [place] [address] 70435 MCV (RBC) [Entitic vol] 86 fL Normal 80-100 [facility] Comment on above: Performed By: #### Aaron ANDERSON CMP, , 5642- #### [facility] ([id number]) [address] [place] [address] 16892 Monocytes (Bld) [#/Vol] 1.0 10*3/uL High 0-0.9 [facility] Comment on above: Performed By: #### Aaron ANDERSON CMP, , 5642-2 #### [facility] ([id number]) [address] [place] [address] 20509 Monocytes/100 WBC (Bld) 7.5 % Normal [facility] Comment on above: Performed By: #### Aaron ANDERSON CMP, , 43-2 #### [facility] ([id number]) [address] [place] [address] 82210 Neutrophils/100 WBC (Bld) 72.1 % Normal [facility] Comment on above: Performed By: #### Aaron ANDERSON CMP, , 5643-2 #### [facility] ([id number]) [address] [place] [address] 61747 Platelet mean volume (Bld) [Entitic vol] 7.5 fL Normal 7-12 [facility] Comment on above: Performed By: #### Aaron ANDERSON CMP, , 43-2 #### [facility] ([id number]) [address] [place] [address] 75915 Platelets (Bld) [#/Vol] 510 10*3/uL High 150-450 [facility] Comment on above: Performed By: #### Aaron ANDERSON CMP, , 43-2 #### [facility] ([id number]) [address] [place] [address] 15154 RBC COUNT 5.02 X10E12/L Normal 3.80-5.20 [facility] Comment on above: Performed By: #### Aaron ANDERSON, CMP, , 5643-2 #### [facility] ([id number]) [address] [place] [address] 53146 WBC (Bld) [#/Vol] 12.6 10*3/uL High 4.0-11.0 [facility] Comment on above: Performed By: #### Aaron ANDERSON, CMP, , 5643-2 #### [facility] ([id number]) [address] [place] [address] 30696 COMPREHENSIVE METABOLIC PANE Artur 10-01-2023 Albumin [Mass/Vol] 4.8 g/dL Normal 3.2-5.3 [facility] Comment on above: Performed By: #### Aaron ANDERSON, CMP, , 5643-2 #### [facility] ([id number]) [address] [place] [address] 64140 ALP [Catalytic activity/Vol] 101 U/L Normal 39-130 [facility] Comment on above: Performed By: #### C BCA, CMP, , 43-2 #### [facility] ([id number]) [address] [place] [address] 28205 ALT [Catalytic activity/Vol] 17 U/L Normal 0-31 [facility] Comment on above: Performed By: #### C BCA, CMP, , 43-2 #### [facility] ([id number]) [address] [place] [address] 41182 Anion gap [Moles/Vol] 6 mmol/L Normal 5-15 [facility] Comment on above: Performed By: #### C BCA, CMP, , 43-2 #### [facility] ([id number]) [address] [place] [address] 24380 AST [Catalytic activity/Vol] 18 U/L Normal 0-41 [facility] Comment on above: Performed By: #### C BCA, CMP, , 5643-2 #### [facility] ([id number]) [address] [place] [address] 46530 Bilirubin [Mass/Vol] 0.4 mg/dL Normal 0.3-1.2 [facility] Comment on above: Performed By: #### C BCA, CMP, , 43-2 #### [facility] ([id number]) [address] [place] [address] 12453 Calcium [Mass/Vol] 9.2 mg/dL Normal 8.5-10.5 [facility] Comment on above: Performed By: #### C BCA, CMP, , 5643-2 #### [facility] ([id number]) [address] [place] [address] [place] [address] Chloride [Moles/Vol] 104 mmol/L Normal 98-109 [facility] Comment on above: Performed By: #### C SARAH ANDERSON, , 56432 #### [facility] ([id number]) [address] [place] [address] 96841 CO2 [Moles/Vol] 26 mmol/L Normal 22-32 [facility] Comment on above: Performed By: #### C SARAH ANDERSON, , 5642- #### [facility] ([id number]) [address] [place] [address] 88985 Creatinine [Mass/Vol] 0.88 mg/dL Normal 0.40-1.00 [facility] Comment on above: Result Comment: METH OD TRACEABLE TO IDMS STANDARD Performed By: #### C SARAH ANDERSON, , 5642-11 #### [facility] ([id number]) [address] [place] [address] 85340 GFR/1.73 sq M.predicted among non-blacks MDRD (S/P/Bld) [Vol rate/Area] 84 mL/min/{1.73_m2} Normal >59 [facility] Comment on above: Result Comment: Reported eGFR is based on the CKD-EPI 2020 equation that does not use a race coefficient. Performed By: #### C SARAH ANDERSON, , 5642-11 #### [facility] ([id number]) [address] [place] [address] 35122 Glucose [Mass/Vol] 247 mg/dL High 65-99 [facility] Comment on above: Performed By: #### C SARAH ANDERSON, , 2 #### [facility] ([id number]) [address] [place] [address] 95804 Potassium [Moles/Vol] 4.0 mmol/L Normal 3.5-5.0 [facility] Comment on above: Performed By: #### C BCA, CMP, 03937-3, 5643-2 #### [facility] ([id number]) [address] [place] [address] 57005 Protein [Mass/Vol] 8.2 g/dL High 6.0-8.0 [facility] Comment on above: Performed By: #### C BCA, CMP, , 5643-2 #### [facility] ([id number]) [address] [place] [address] 66795 Sodium [Moles/Vol] 136 mmol/L Normal 134-146 [facility] Comment on above: Performed By: #### C BCA, CMP, , 5643-2 #### [facility] ([id number]) [address] [place] [address] 53335 Urea nitrogen [Mass/Vol] 12 mg/dL Normal 5-23 [facility] Comment on above: Performed By: #### C BCA, [facility], , 5643-2 #### [facility] ([id number]) [address] [place] [address] [place] [address] DRUG SCREEN, URINEon 023 AMPHETAMINE/METHAMP Negative Normal NEG [facility] Comment on above: Result Comment: AMPH /METH screening cut off = 1000 ng/mL Performed By: #### D STEELE #### [facility] ([id number]) [address] [place] [address] [place] [address] BARBITURATES Negative Normal NEG [facility] Comment on above: Result Comment: Kelsi iturates screening cut off value = 200 ng/mL Performed By: #### D STEELE #### [facility] ([id number]) [address] [place] [address] [place] [address] BENZODIAZEPINES Negative Normal NEG [facility] Comment on above: Result Comment: Simeon odiazepines screening cut off value = 200 ng/mL Performed By: #### D STEELE #### [facility] ([id number]) [address] [place] [address] 49381 CANNABINOIDS Negative Normal [facility] Comment on above: Result Comment: Carlos abinoids/THC screening cut off value = 50 ng/mL Performed By: #### D STEELE #### [facility] ([id number]) [address] [place] [address] 22621 COCAINE METABOLITE Negative Normal NEG [facility] Comment on above: Result Comment: Coca ine screening cut off value = 300 ng/mL Performed By: #### D STEELE #### [facility] ([id number]) [address] [place] [address] 68759 ECSTASY Negative Normal [facility] Comment on above: Result Comment: Ecst asy screening cut off value = 500 ng/mL This report is intended for use in clinical monitoring or management of patients. Performed By: #### D STEELE #### [facility] ([id number]) [address] [place] [address] 23610 METHADONE Negative [facility] Comment on above: Result Comment: Meth adone screening cut off value = 300 ng/mL. Performed By: #### D STEELE #### [facility] ([id number]) [address] [place] [address] 65374 OPIATES Negative Normal [facility] Comment on above: Result Comment: Opia hcu screening cut off value = 300 ng/mL NOTE: This test is used for the detection of codeine, hydrocodone (>1000 ng/mL), morphine and hydromorphone (>900 ng/mL) in urine. Performed By: #### D STEELE #### [facility] ([id number]) [address] [place] [address] [place] [address] OXYCODONE Negative Normal NEG [facility] Comment on above: Result Comment: Oxyc odone screening cut off value = 300 ng/mL NOTE: This test is used for the detection of oxycodone and oxymorphone in urine. Performed By: #### D STEELE #### [facility] ([id number]) [address] [place] [address] 25706 PHENCYCLIDINE Negative Normal NEG [facility] Comment on above: Result Comment: Phen cyclidine screening cut off value = 25 ng/mL Performed By: #### D STEELE #### [facility] ([id number]) [address] [place] [address] 42823 ETHANOLon 10-01-2023 Ethanol [Mass/Vol] mg/dL Normal 0.00-0.08 [facility] Comment on above: Result Comment: This report is intended for use in clinical monitoring or management of patients. Performed By: #### C SARAH ANDERSON, 75705-5, 5643-2 #### [facility] ([id number]) [address] [place] [address] 08933 Glucose Glucometer (BldC) [M ass/Vol]on 10-01-2023 Glucose [Mass/Vol] 237 mg/dL High 65-99 [facility] MAGNESIUMon 10-01-2023 Magnesium [Mass/Vol] 2.1 mg/dL Normal 1.8-2.6 [facility] Comment on above: Performed By: #### C JUSTIN CMP, 16993-9, 5643-2 #### [facility] ([id number]) [address] [place] [address] 36566 Salicylates [Mass/Vol]on SALICYLATE <4.0 Normal 2.0-25.0 [facility] Comment on above: Result Comment: Refe rence ranges are for therapeutic limits. Performed By: #### 3 298-7, 4024-6, 78428-1 #### [facility] ([id number]) [address] [place] [address] 75119 URN MACROSCOPIC NURon 2022 BILIRUBIN SAMMY Negative Normal NEG [facility] Comment on above: Performed By: #### N UM #### [facility] ([id number]) [address] [place] [address] 14982 BLOOD/HGB SAMMY Negative Normal NEG [facility] Comment on above: Performed By: #### N UM #### [facility] ([id number]) [address] [place] [address] 12918 GLUCOSE SAMMY 500 mg/dL Abnormal NEG [facility] Comment on above: Performed By: #### N UM #### [facility] ([id number]) [address] [place] [address] 11419 KETONES SAMMY Negative Normal NEG [facility] Comment on above: Performed By: #### N UM #### [facility] ([id number]) [address] [place] [address] [place] [address] LEUKOCYTE ESTERASE SAMMY Negative Normal NEG [facility] Comment on above: Performed By: #### N UM #### [facility] ([id number]) [address] [place] [address] 65890 NITRITE SAMMY Negative Normal NEG [facility] Comment on above: Performed By: #### N UM #### [facility] ([id number]) [address] [place] [address] 71633 PH SAMMY 7.0 Normal 5.0-8.5 [facility] Comment on above: Performed By: #### N UM #### [facility] ([id number]) [address] [place] [address] 83733 PROTEIN SAMMY Negative Normal NEG [facility] Comment on above: Performed By: #### N UM #### [facility] ([id number]) [address] [place] [address] [place] [address] SPECIFIC GRAVITY SAMMY 1.010 Normal 1.003-1.035 [facility] Comment on above: Performed By: #### N UM #### [facility] ([id number]) [address] [facility] [place], [place] [address] UROBILINOGEN SAMMY 0.2 eu/dL Normal <1.1 [facility] Comment on above: Performed By: #### N UM #### [facility] ([id number]) [address] [facility] [place], [place] [address] XR SHOULDER LT MIN 2 VWSon 1 [...] AM Normal [facility] HERPES SIMPLEX VIRUS (HSV) C ULTUREon 08-26-2021 HSV Culture/Type Comment Abnormal [facility] Comment on above: Result Comment: Posi tive for Herpes simplex virus type-2. Typing was confirmed by monoclonal antibody microscopic immunofluorescence. Performed By: #### H SVCUL #### [facility] [address] [place] [address] Dr. Gianfranco Orta AMYLASEon 08-21-2021 AMYL <30 Critically low 31-110 [facility] Comment on above: Performed By: #### A ALEXIA WALKER #### [facility] [address] [place] [address] Dr. Gianfranco Orta CBC AUTO DIFFon 08-21-2021 BASO # 0.1 103/ul Normal 0.0-0.1 [facility] Comment on above: Performed By: #### C BC #### [facility] [address] [place] [address] Dr. Gianfranco Orta Basophils/100 WBC (Bld) 0.5 % Normal 0.2-2.0 [facility] Comment on above: Performed By: #### C BC #### [facility] [address] [address] [address] Gianfranco Orta EO # 0.2 103/ul Normal 0.0-0.7 [facility] Comment on above: Performed By: #### C BC #### [facility] [address] [place] [address] Dr. Gianfranco Orta Eosinophils/100 WBC (Bld) 2.3 % Normal 0.9-7.0 [facility] Comment on above: Performed By: #### C BC #### [facility] [address] [place] [address] Dr. Gianfranco Orta Erythrocyte distribution width (RBC) [Ratio] 16.1 % Critically high 11.0-15.0 [facility] Comment on above: Performed By: #### C BC #### [facility] [address] [place] [address] Dr. Gianfranco Orta Hematocrit (Bld) [Volume fraction] 35.3 % Critically low 36.0-48.0 [facility] Comment on above: Performed By: #### C BC #### [facility] [address] [place] [address] Dr. Gianfranco Orta Hemoglobin (Bld) [Mass/Vol] 11.3 g/dL Critically low 12.0-16.0 [facility] Comment on above: Performed By: #### C BC #### [facility] [address] [place] [address] Dr. Gianfranco Orta IG # 0.07 10e3/ul Critically high 0.00-0.03 [facility] Comment on above: Performed By: #### C BC #### [facility] [address] [place] [address] Dr. Gianfranco Orta IG % 0.7 % Critically high 0.0-0.5 [facility] Comment on above: Performed By: #### C BC #### [facility] [address] [place] [address] Dr. Gianfranco Orta LYMPH # 2.6 103/ul Normal 1.2-3.8 [facility] Comment on above: Performed By: #### C BC #### [facility] [address] [place] [address] Dr. Gianfranco Orta Lymphocytes/100 WBC (Bld) 26.7 % Normal 20.5-60.0 [facility] Comment on above: Performed By: #### C BC #### [facility] [address] [place] [address] Dr. Gianfranco Orta MANUAL DIFF REQ NO Normal [facility] Comment on above: Performed By: #### C BC #### [facility] [address] [place] [address] Dr. Gianfranco Orta MCH (RBC) [Entitic mass] 26.1 pg Critically low 26.7-34.0 [facility] Comment on above: Performed By: #### C BC #### [facility] [address] [place] [address] Dr. Gianfranco Orta MCHC (RBC) [Mass/Vol] 32.0 g/dL Normal 29.9-35.2 [facility] Comment on above: Performed By: #### C BC #### [facility] [address] [place] [address] Dr. Gianfranco Orta MCV (RBC) [Entitic vol] 81.5 fL Normal 81.0-99.0 [facility] Comment on above: Performed By: #### C BC #### [facility] [address] [place] [address] Dr. Gianfranco Orta MONO # 0.5 103/ul Normal 0.3-0.8 [facility] Comment on above: Performed By: #### C BC #### [facility] [address] [place] [address] Dr. Gianfranco Orta Monocytes/100 WBC (Bld) 5.2 % Normal 1.7-12.0 [facility] Comment on above: Performed By: #### C BC #### [facility] [address] [place] [address] Dr. Gianfranco Orta NEUT # 6.4 103/ul Normal 1.4-6.5 [facility] Comment on above: Performed By: #### C BC #### [facility] [address] [place] [address] Dr. Gianfranco Orta Neutrophils/100 WBC (Bld) 64.6 % Normal 43.0-75.0 [facility] Comment on above: Performed By: #### C BC #### [facility] [address] [place] [address] Dr. Gianfranco Orta Platelet mean volume (Bld) [Entitic vol] 10.8 fL Normal 9.5-13.5 [facility] Comment on above: Performed By: #### C BC #### [facility] [address] [place] [address] Dr. Gianfranco Orta PLT 322 103/ul Normal 150-450 [facility] Comment on above: Performed By: #### C BC #### [facility] [address] [place] [address] Dr. Gianfranco Orta RBC 4.33 106/ul Normal 4.20-5.40 [facility] Comment on above: Performed By: #### C BC #### [facility] [address] [place] [address] Dr. Gianfranco Orta WBC 9.9 103/ul Normal 4.0-11.0 [facility] Comment on above: Performed By: #### C BC #### [facility] [address] [place] [address] Dr. Gianfranco Orta CULTURE URINEon 08-21-2021 CULTURE URINE Culture Observations : LIGHT GROWTH OF MIXED GENITAL ROSANNE. NO POTENTIAL PATHOGENS SEEN. Normal [facility] Comment on above: Performed By: #### U RCX #### [facility] [address] [place] [address] Dr. Gianfranco Orta ER URINE PROFILEon Bilirubin Ql (U) Negative Normal NEGATIVE [facility] Comment on above: Performed By: #### U MICRO, ERUR #### [facility] [address] [place] [address] Dr. Gianfranco Orta Clarity (U) CLEAR Normal CLEAR [facility] Comment on above: Performed By: #### U MICRO, ERUR #### [facility] [address] [place] [address] Dr. Gianfranco Orta Color (U) YELLOW Normal YELLOW [facility] Comment on above: Performed By: #### U MICRO, ERUR #### [facility] [address] [address] [address] Gianfranco MEDINA A micrscopic examination will be performed if indicated. Normal [facility] Comment on above: Performed By: #### U MICRO, ERUR #### [facility] [address] [address] [address] Gianfranco Orta Glucose Ql (U) 1000 mg/dl Abnormal NEGATIVE The [facility] Comment on above: Performed By: #### U MICRO, ERUR #### [facility] [address] [address] [address] Gianfranco Orta Hemoglobin Ql (U) TRACE-INTACT Abnormal NEGATIVE [facility] Comment on above: Performed By: #### U MICRO, ERUR #### [facility] [address] [place] [address] Dr. Gianfranco Orta Ketones Ql (U) TRACE Abnormal NEGATIVE [facility] Comment on above: Performed By: #### U MICRO, ERUR #### [facility] [address] [address] [address] Gianfranco Orta LEUKOCYTES Negative Normal NEGATIVE [facility] Comment on above: Performed By: #### U MICRO, ERUR #### [facility] [address] [place] [address] Dr. Gianfranco Orta Nitrite Ql (U) Negative Normal NEGATIVE [facility] Comment on above: Performed By: #### U MICRO, ERUR #### [facility] [address] [address] [address] Gianfranco Orta pH (U) 6.0 [pH] Normal 5-9 [facility] Comment on above: Performed By: #### U MICRO, ERUR #### [facility] [address] [address] [address] Gianfranco Orta SPEC GRAVITY 1.010 Normal 1.005-<=1.025 [facility] Comment on above: Performed By: #### U MICRO, ERUR #### [facility] [address] [address] [address] Gianfranco Orta UA PROTEIN TRACE Normal NEGATIVE/ TRACE [facility] Comment on above: Performed By: #### U MICRO, ERUR #### [facility] [address] [place] [address] Dr. Gianfranco Orta UR MICRO IND INDICATED Normal [facility] Comment on above: Performed By: #### U MICRO, ERUR #### [facility] [address] [place] [address] Dr. Gianfranco Orta Urobilinogen Qn (U) 1.0 {Gabriela'U}/dL Normal 0.2 - 1. 0 [facility] Comment on above: Performed By: #### U MICRO, ERUR #### [facility] [address] [place] [address] Dr. Gianfranco Orta LIPASEon 08-21-2021 Lipase [Catalytic activity/Vol] 210.0 U/L Normal 23.0-300.0 [facility] Comment on above: Performed By: #### A MY, LIPA #### [facility] [address] [place] [address] Dr. Gianfranco Orta PREG HCG QUALon 08-21-2021 , QUAL Negative Normal NEGATIVE [facility] Comment on above: Performed By: #### P REG #### [facility] [address] [place] [address] Dr. Gianfranco Orta PROF 14(COMP METB)on 021 Albumin [Mass/Vol] 2.9 g/dL Critically low 3.5-5.0 Th [facility] Comment on above: Performed By: #### C MP #### [facility] [address] [place] [address] Dr. Gianfranco Orta Albumin/Globulin [Mass ratio] 0.7 {ratio} Normal [facility] Comment on above: Performed By: #### C MP #### [facility] [address] [place] [address] Dr. Gianfranco Orta ALP [Catalytic activity/Vol] 136 U/L Critically high 38-126 [facility] Comment on above: Performed By: #### C MP #### [facility] [address] [place], [place] [id number] Dr. Gianfranco Orta ALT [Catalytic activity/Vol] 384 U/L Critically high 9-52 [facility] Comment on above: Performed By: #### C MP #### [facility] [address] [place] [address] Dr. Gianfranco Orta Anion gap [Moles/Vol] 12.7 mmol/L Normal [facility] Comment on above: Performed By: #### C MP #### [facility] [address] [address] [address] Gianfranco Orta AST [Catalytic activity/Vol] 32 U/L Normal 14-36 [facility] Comment on above: Performed By: #### C MP #### [facility] [address] [place] [address] Dr. Gianfranco Orta Bilirubin [Mass/Vol] 0.5 mg/dL Normal 0.2-1.3 [facility] Comment on above: Performed By: #### C MP #### [facility] [address] [place] [address] Dr. Gianfranco Orta Calcium [Mass/Vol] 8.6 mg/dL Normal 8.4-10.2 [facility] Comment on above: Performed By: #### C MP #### [facility] [address] [place] [address] Dr. Gianfranco Orta Chloride [Moles/Vol] 100 mmol/L Normal 98-107 [facility] Comment on above: Performed By: #### C MP #### [facility] [address] [place] [address] Dr. Gianfranco Orta CO2 [Moles/Vol] 26.1 mmol/L Normal 22.0-30.0 [facility] Comment on above: Performed By: #### C MP #### [facility] [address] [place] [address] Dr. Gianfranco Orta Creatinine [Mass/Vol] 0.74 mg/dL Normal 0.52-1.04 [facility] Comment on above: Performed By: #### C MP #### [facility] [address] [place] [address] Dr. Gianfranco Orta EGFR-AF MICRONESIAN >60 Normal >=60 [facility] Comment on above: Performed By: #### C MP #### [facility] [address] [address] [address] Gianfranco Orta EGFR-NON AF MICRONESIAN >60 Normal >=60 [facility] Comment on above: Performed By: #### C MP #### [facility] [address] [address] [address] Gianfranco Orta Globulin (S) [Mass/Vol] 4.0 g/dL Normal [facility] Comment on above: Performed By: #### C MP #### [facility] [address] [address] [address] Gianfranco Orta Glucose [Mass/Vol] 365 mg/dL Critically high 74-106 T [facility] Comment on above: Performed By: #### C MP #### [facility] [address] [address] [address] Gianfranco Orta Potassium [Moles/Vol] 3.8 mmol/L Normal 3.4-5.0 [facility] Comment on above: Performed By: #### C MP #### [facility] [address] [address] [address] Gianfranco Orta Protein [Mass/Vol] 6.9 g/dL Normal 6.1-8.2 [facility] Comment on above: Performed By: #### C MP #### [facility] [address] [address] [address] Gianfranco Orta Sodium [Moles/Vol] 135 mmol/L Critically low 137-145 Th [facility] Comment on above: Performed By: #### C MP #### [facility] [address] [address] [address] Gianfranco Orta Urea nitrogen [Mass/Vol] 7.0 mg/dL Normal 7.0-17.0 [facility] Comment on above: Performed By: #### C MP #### [facility] [address] [address] [address] Gianfranco Orta Urea nitrogen/Creatinine [Mass ratio] 9.5 mg/mg Normal [facility] Comment on above: Performed By: #### C MP #### [facility] [address] [place] [address] Dr. Gianfranco Orta URINE MICROSCOPIC ONLYon BACTERIA SMALL Abnormal NONE SEEN The [facility] Comment on above: Performed By: #### U MICRO, ERUR #### [facility] [address] [place] [address] Dr. Gianfranco Orta Bacteria identified Cx Nom (U) INDICATED Normal [facility] Comment on above: Performed By: #### U MICRO, ERUR #### [facility] [address] [place] [address] Dr. Gianfranco Orta CAST NONE SEEN Normal NONE SEEN [facility] Comment on above: Performed By: #### U MICRO, ERUR #### [facility] [address] [place] [address] Dr. Gianfranco Orta Crystals LM Nom (Urine sed) NONE SEEN Normal NONE SEEN [facility] Comment on above: Performed By: #### U MICRO, ERUR #### [facility] [address] [place] [address] Dr. Gianfranco Orta Epithelial cells LM Ql (Urine sed) FEW Abnormal NONE SEEN /RARE [facility] Comment on above: Performed By: #### U MICRO, ERUR #### [facility] [address] [place] [address] Dr. Gianfranco Orta MUCOUS NONE SEEN Normal NONE SEEN [facility] Comment on above: Performed By: #### U MICRO, ERUR #### [facility] [address] [address] [address] Gianfranco Orta RBC 5-10 Abnormal 0-2 [facility] Comment on above: Performed By: #### U MICRO, ERUR #### [facility] [address] [place] [address] Dr. Gianfranco Orta WBC 0-2 Abnormal NONE SEEN [facility] Comment on above: Performed By: #### U MICRO, ERUR #### [facility] [address] [place] [address] Dr. Gianfranco Orta XR HAND RIGHT (MIN [...] Chikis Somers MD 03/19/18 Final result Normal [facility] XR WRIST RIGHT (MIN 3 VIEWS) [...] Chikis Somers MD 03/19/18 Final result Normal [facility] Vital Signs Date Time Vital Sign Value Performing Clinician Inai kameron 11-27-2023 09:05-0500 Body height 157.5 cm Juan Franco PA-C Work Phone: [facility] [employer] [facility] 11-27-2023 09:05-0500 Body mass index (BMI) [Ratio] 28.17 kg/m2 Juan Franco PA-C Work Phone: [facility] [facility] 11-27-2023 09:05-0500 Body weight 69.85 kg Juan Franco PA-C Work Phone: [facility] [facility] 11-27-2023 09:05-0500 Diastolic blood pressure 64 mm[Hg] Juan Franco PA-C Work Phone: [facility] 11-27-2023 09:05-0500 Heart rate 90 /min Juan Franco PA-C Work Phone: [facility] 11-27-2023 09:05-0500 Systolic blood pressure 114 mm[Hg] Juan Franco PA-C Work Phone: [employer] 11-16-2023 11:20-0500 Body height 157.5 cm Juve Yuqing [employer] DO Work Phone: [facility] [employer] 11-16-2023 11:20-0500 Body mass index (BMI) [Ratio] 28.17 kg/m2 Juve [employer]i DO Work Phone: [facility] [employer] 11-16-2023 11:20-0500 Body weight 69.85 kg Juve Yuqing [employer]i DO Work Phone: [facility] Healthcare Encounters Encounter Date Encounter Type [...] Start: 11-27-2023 End: 11-27-2023 ambulatory JUAN C [facility] Start: 11-27-2023 End: 11-27-2023 Office outpatient visit 25 minutes Juan C Salvador PA-C Work Phone: [facility] Comment on above: Altered mental statu s, unspecified altered mental status type (Primary Dx); Other cerebral palsy ([facility]); Anxiety and depression; Bipolar affective disorder, remission status unspecified ([facility]) Start: 11-23-2023 End: 11-23-2023 Emergency department patient visit [facility] Start: 11-21-2023 End: 11-21-2023 Emergency department patient visit [facility] Start: 11-19-2023 Chart abstracting Gerardo atwood [...] 11-04-2023 End: 11-04-2023 Emergency department patient visit [facility] Start: 10-17-2023 Telephone encounter Reema Amaya [facility] Comment on above: Neurology Referral Start: 10-02-2023 End: 10-04-2023 ambulatory SHIRA Quinn [facility] Start: 10-02-2023 End: 10-04-2023 ambulatory VICKY Quinn [facility] Start: 10-02-2023 End: 10-04-2023 ambulatory VICKY Quinn [facility] Start: 10-01-2023 End: 10-04-2023 ambulatory VICKY M [facility] Start: 10-01-2023 End: 10-04-2023 Emergency department patient visit [facility] Start: 09-24-2023 End: 09-25-2023 Emergency department patient visit [facility] Start: 09-11-2023 End: 09-11-2023 ambulatory MATTHEW GIRON Not Available Start: 12-06-2022 ambulatory Solo Navarrete Facility:[facility] Start: 08-21-2021 End: 08-21-[address] DIANELYS MARTINEZ Facility:[facility] Start: 03-09-2019 [facility] Start: 09-21-2018 End: 09-21-2018 Emergency department patient visit BRENDA Delvalle [facility] Start: 03-19-2018 End: 03-19-2018 Emergency department patient visit ROWAN SUNKER [facility] Procedures Date Procedure Procedure Detail Performing [...] Td Vaccines (3 - Td or Tdap) [facility] Start: 04-19-2026 Screening for malignant neoplasm of cervix Pap Smear [facility] Start: 11-27-2024 Adult BMI Screening Adult BMI Screen ing [facility] Start: 11-27-2024 Depression Screening Depression Scre ening [facility] Start: 11-27-2024 Tobacco Screening Tobacco Screening [facility] Start: 11-03-2024 Adult BMI Screening Adult BMI Screen ing [facility] Start: 11-03-2024 Tobacco Screening Tobacco Screening [facility] Start: 06-12-2024 End: 06-12-2024 Patient encounter procedure 06/12/2024 9:15 AM EDT Office Visit Leelee L Briscoe [facility] [address] [place] [phone] You Patel MD [address] [place] [address] [address] [place] [address] Leelee L [facility] Start: 06-12-2024 End: 06-12-2024 ambulatory 06/12/2024 8:50 AM EDT Support Visit Leelee Meier [facility] [address] [place] [phone] Leelee L [facility] Start: 05-23-2024 End: 05-23-2024 Patient encounter procedure 05/23/2024 1:00 PM EDT Office Visit [facility] [address] [place] [phone] Juve Garrett DO [address] [place] [address] [facility] Start: 01-29-2024 End: 01-29-2024 Patient encounter procedure 01/29/2024 9:30 AM EDT Office Visit [facility] [address] [place] [phone] Juan Franco, PAAndreyC [address] [facility] [place] [phone] [facility] Start: 01-15-2024 End: 01-15-2024 Clinical Support 01/15/2024 2:00 PM EDT Clinical Support [facility] [address] [place] [address] Janeth Coleman, [facility] [address] [place] [address] [facility] Start: 12-13-2023 End: 12-13-2023 ambulatory 12/13/2023 9:15 AM EST Support Visit Leelee L [facility] [address] [place] [phone] Leeele L [facility] Start: 12-04-2023 End: 12-04-2023 Patient encounter procedure 12/04/2023 9:15 AM EST Office Visit [facility] [address] [place] [phone] Matthew Giron, JACQUE [address] [place] [address] [address] [facility] Start: 11-27-2023 End: 11-27-2023 Patient encounter procedure 11/27/2023 3:30 PM EST Procedure Visit [facility] [address] [place] [phone] Lexy Pascual DPM [address] [place], [place] [phone] [facility] Start: 11-27-2023 End: 11-27-2023 Patient encounter procedure 11/27/2023 9:30 AM EST Office Visit [facility] [address] [facility] [place] [phone] Juan Franco, MAVIS [address] [place] [address] [facility] Start: 11-19-2023 End: 11-19-2023 ambulatory 11/19/2023 9:30 AM EST Evaluation [facility] [address] [place] [phone] Gerardo Pete, PT [address] [place] [address] [facility] Start: 06-08-2023 Influenza vaccination Influenza Vacc ine [facility] Start: 04-22-2020 Urine screening for protein Urine Microalbumin [facility] Start: 1999 Adult BMI Follow Up Plan Adult BMI Follow Up Plan [facility] Start: 1999 Diabetic foot examination Diabetic Foot Exam [facility] Start: 1993 Depression Screening Depression Scre ening [facility] Start: 1981 Glaucoma screening Diabetic Op hthalmology Exam [facility] Start: 1981 Tobacco Counseling Tobacco Counselin g [facility] End: 11-27-2024 Sleep Deprived EEG Sleep Deprived EEG Neurology Routine Altered mental status, unspecified altered mental status type 1 Occurrences starting 11/27/2023 until 11/27/2024 [facility] Work Phone: Comment on above: 1 Occurrences starti ng 11/27/2023 until 11/27/2024 Immunizations Immunization Date Immunization Notes Care Provider Fa cililainey 10-24-2021 tetanus toxoid, reduced diphtheria toxoid, and acellular pertussis vaccine, adsorbed [facility] 08-01-2011 influenza, seasonal, injectable Juve Garrett DO Work Phone: [facility] 08-01-2011 influenza virus vaccine, unspecified formulation [facility] 04-11-2010 tetanus toxoid, reduced diphtheria toxoid, and acellular pertussis vaccine, monica Garrett DO Work Phone: [facility] Payers Date Payer Category Payer Medicare [id number] 2022 Medicare [id number] 2022 Medicare [id number] 2017 Medicaid [id number] 2017 Medicare [id number] 1981 Unknown [id number] 2.16.8 40.1.445835.3.579.2.173 1981 Unknown [id number] 2.16.8 40.1.756486.3.579.2.173 1981 Unknown [id number] 2.16.8 40.1.169908.3.579.2.173 1981 Unknown [id number] 2.16.84 0.1.413460.3.579.2.593 1981 Unknown [id number] 2.16.8 40.1.945937.3.579.2.1286 1981 Unknown [id number] 2.16.8 40.1.054446.3.579.2.1286 1981 Unknown [id number] 2.16.8 40.1.798006.3.579.2.6 1981 Unknown [id number] 2.16.8 40.1.477211.3.579.2.1286 1981 Unknown [id number] 2.16.84 0.1.955911.3.579.2.128 1981 Unknown [id number] 2.16.84 0.1.650191.3.579.2.1286 1981 Unknown [id number] 2.16.84 0.1.918017.3.579.2.128 1981 Unknown [id number] 2.16.84 0.1.386132.3.579.2.1285 1981 Unknown [id number] 2.16.84 0.1.463553.3.579.2.1285 1981 Unknown [id number] 2.16.84 0.1.762443.3.579.2.1285 1981 Unknown [id number] 2.16.84 0.1.141947.3.579.2.1285 1981 Unknown [id number] 2.16.840 .1.886118.3.579.2.1285 1981 Unknown [id number] 2.16.840. 1.421171.3.579.2.1285 1981 Unknown [id number] 2.16.84 0.1.009956.3.579.2.1258 1981 Unknown [id number] 2.16.84 0.1.618568.3.579.2.1258 1981 Unknown [id number] 2.16.84 0.1.828160.3.579.2.1258 1981 Unknown [id number] 2.16.84 0.1.472409.3.579.2.1258 1981 Unknown [id number] 2.16.84 0.1.005703.3.579.2.1258 1981 Unknown [id number] 2.16.84 0.1.818500.3.579.2.1258 1981 Unknown [id number] 2.16.84 0.1.713883.3.579.2.1258 1981 Unknown [id number] 2.16.84 0.1.741666.3.579.2.1258 1981 Unknown [id number] 2.16.84 0.1.161868.3.579.2.1258 1981 Unknown [id number] 2.16.84 0.1.221069.3.579.2.1258 1981 Unknown [id number] 2.16.84 0.1.105853.3.579.2.1259 1981 Unknown [id number] 2.16.84 0.1.766590.3.579.2.9 1981 Unknown [id number] 2.16.84 0.1.971099.3.579.2.9 1981 Unknown [id number] 2.16.84 0.1.264335.3.579.2.1258 1981 Unknown [id number] 2.16.84 0.1.362327.3.579.2.9 1981 Unknown [id number] 2.16.84 0.1.269266.3.579.2.1258 1981 Unknown [id number] 2.16.84 0.1.469234.3.579.2.9 1981 Unknown [id number] 2.16.84 0.1.417191.3.579.2.1258 1981 Unknown [id number] 2.16.84 0.1.954995.3.579.2.9 1981 Unknown [id number] 2.16.84 0.1.136510.3.579.2.9 1981 Unknown [id number] 2.16.840 .1.468840.3.579.2.1259 1958 Medicaid [id number] 1958 Medicare [id number] Social History Date Type Detail Facility Start: 10-08-1999 End: 07-04-2023 Tobacco smoking status MAIS Smokes tobacco daily [facility] [employer] Start: 10-08-1999 History of tobacco use Cigarette Smo ker [facility] Start: 10-21-2020 End: 07-04-2023 Cigarettes smoked current (pack per day) - Reported 0.5 [facility] Start: 06-19-2023 End: 07-04-2023 Tobacco use and exposure Smokeless tobacco non-user [facility] Start: 10-02-2023 End: 11-27-2023 Alcohol intake Current non-drinker of alcohol (finding) [facility] Start: 10-21-2020 End: 11-03-2023 Tobacco use panel [facility] Are you worried or concerned that in the next two months you may not have stable housing that you own, rent or stay in as a part of a household? No [facility] Start: 1981 Sex Assigned At Not on file P [facility] Start: 11-14-2023 End: 11-16-2023 Alcohol intake Ex-drinker (finding) [facility] Start: 06-19-2023 Tobacco Comment Smokes 6-10 ci gs per day [facility] Start: 08-17-2023 Alcohol Comment caffeine intak e: 3-4 cups per day [facility] History of Present illness Narrative 11-27-2023 Juan Franco PA-C - 11/27/2023 9:30 AM EST Note Date & Type Note Facility 11-27-2023 History of Presen t illness Narrative [facility] Office Note 11/27/2023 9:19 AM Patient info: Lindsey Knapp is a 43 y.o. female Account No.: [id number] Acct: : 1980 PCP: KADI HERMOSILLO DO [...] of significant head injury/trauma: (-) hx of TIRE BUSTER infection: (+) hx of stroke/cerebrovascular malformation: reported [...] disorder, cerebral palsy, COPD, who presented to [facility] 10[facility]01[facility]23 with reports of not feeling well. [...] her name and knows she is at [facility] [facility] She did state that she [...] PA-C 11/28/23 1407 documented in this encounter [facility] History of Present illness Narrative [...] 03/09/2019 Past Medical History: Diagnosis Date Asthma ([facility]) Bandemia 08/02/2023 Cerebral palsy ([facility]) COPD (chronic obstructive pulmonary disease) ([facility]) Delirium 10/01/2023 Depression ([facility]) Diabetes ([facility]) GERD (gastroesophageal reflux disease) Heart murmur HLD (hyperlipidemia) ([facility]) Hx of tear of meniscus of knee joint Hypertension ([facility]) Knee pain, left Lesion of parotid gland 11/14/2023 Migraine headache ([facility]) Thrombocytosis 08/02/2023 Current Outpatient Medications: albuterol (2.5 [...] Do not swallow.., Disp: , Rfl: HYDROcodone-acetaminophen ([place]) 5-325 MG tablet, , Disp: , Rfl: [...] accident. She said she no longer has [email or web address] Dual Complete. She said her primary is now [employer] and secondary is [place] Medicaid. She said she hasn't seen a neurologist before so it's not for second opinion. First Attempt [facility] New patient referral received. Dx:Altered mental [...] Hermosillo DO Requesting first available provider in [facility] with PA Insurance verified: [place] [employer] [place] [employer] Not worker's comp related New patient paperwork mailed 11/09/2023 - MMV documented in this encounter [employer] Telephone encounter Note 10-17-2023 Telephone Encounter [...] accident. She said she no longer has [facility] Medicare Dual Complete. She said her primary is now [employer] and secondary is [place] Medicaid. She said she hasn't seen a neurologist before so it's not for second opinion. [employer] Telephone encounter Note 10-17-2023 Telephone Encounter [...] Hermosillo DO Requesting first available provider in [facility] with PA [facility] Not worker's comp related New patient paperwork mailed 11/09/2023 - MMV [facility] Evaluation note Note Date & Type Note Facility Evaluation note Diagnosis Parotid mass- Primary Swelling, mass, or lump in head and neck Tobacco abuse Tobacco use disorder Hearing loss, unspecified hearing loss type, unspecified laterality documented in this encounter [facility] Evaluation note Note Date & Type Note Facility Evaluation note Diagnosis Altered mental status, unspecified altered mental status type- Primary Other cerebral palsy ([facility]) Anxiety and depression Bipolar affective disorder, remission status unspecified ([facility]) documented in this encounter [facility] [...] Deprived EEG Juan Franco PA-C [address] [place] [address] Referral ID Status Reason Start Date Expiration Date V isits Requested Visits Authorized [id number] Pending Review 11/27/2023 11/26/2024 1 1 Additional Source Comments INFORMATION SOURCE (unrecogn ized section and content) DATE CREATED AUTHOR 03/12/2019 [facility] DATE CREATED AUTHOR AUTHOR'S ORGANIZ ATION 08/28/2021 [facility] DATE CREATED AUTHOR AUTHOR'S ORGANIZ ATION 09/28/2022 [facility] DATE CREATED AUTHOR AUTHOR'S ORGANIZ ATION 11/28/2023 [facility] DATE CREATED AUTHOR AUTHOR'S ORGANIZ ATION 04/30/2024 [facility] d[facility] Specialists EPIC Reason for Visit (unrecogniz [...] mental status type Kadi Hermosillo DO [address] [place] [address] [facility] [address] [facility] [place] [address] Referral ID Status Reason Start Date Expiration Date Visits Requested Visits Authorized [id number] Pending Review Specialty Services Required 10/29/2023 10/28/2024 1 1 Care Teams (unrecognized sec tion and content) Lead Installer Relationship Specialty Start Date End Date Kdai Hermosillo DO [address] [place], [place] [phone] PCP - General Family Medicine 01/24/22 Lead Installer Relationship Specialty Start Date End Date Pawan Kerns MD [address] [place] [phone] PCP - General 04/16/23 Lead Installer Relationship Specialty Start Date End Date Pawan Kerns MD [address] [place] [phone] PCP General 04/16/23 Lead Installer Relationship Specialty Start Date End Date Pawan Kerns MD [address] [place] [phone] PCP General 04/16/23 Lead Installer Relationship Specialty Start Date End Date Kadi Hermosillo DO [address] [place] [id number] PCP - [facility] Family Medicine 11/21/23 FOR RECORDS PERTAINING TO [...] BE BASED ON THE PRIMARY CLINICAL RECORDS. [facility]. provides no warranty or guarantee of the accuracy or completeness of information in this document.
[2024-06-02 08:45] LABS: HCG Qualitative NEGATIVE (NEGATIVE); Internal Control Within Normal Limits
[2024-06-02 09:33] VITALS: BP 134/82; PULSE 75; TEMP 36.1; O2SAT 100
[2024-06-02 09:42] LABS: Glucometer 132 mg/dL (74-106)
[2024-06-02] MEDS: 0.9 % SODIUM CHLORIDE 500 ML 50 ML IV (09:42)
[2024-06-02] MEDS: BUPIVACAINE HCL 0.25% PF 25 MG/10 ML VIAL 2 ML INJ (10:05)
[2024-06-02] MEDS: TRIAMCINOLONE ACETONIDE 40 MG/ML VIAL INJ (10:05)
[2024-06-02] MEDS: LIDOCAINE HCL 2% 400 MG/20 ML MDV 8 ML INJ (10:05)
--- NOTE | 2024-06-02 10:11 | P.ON_ITS ---
Date of procedure: 06/02/24 Pre-op diagnosis: Pain due to lumbar spondylosis without myelopathy Post-op diagnosis: same as pre-op Procedure: Procedure: Left L1-2, L2-3 radiofrequency ablation Medications: Bupivacaine 0.25% 3cc, lidocaine 2% 3cc, kenalog 40mg The patient was seen and examined in the preoperative holding area.? The site was marked.? Written informed consent was obtained and placed on the chart.? The patient was brought to the medical procedure unit and placed in the prone position.? A timeout was completed verifying correct patient, procedure, positioning, and special requirements.? The skin overlying the target points, the designated medial branch, were prepped and draped in the usual sterile fashion.? The target point was achieved with a 20-gauge 15 cm with a 10 mm curved active tip radiofrequency cannula under direct fluoroscopic visualization.? The needle was inserted at level L1 on the left side. Needle tip position was confirmed with lateral fluoroscopic position.? Motor stimulation was carried out at 2 Hz up to 5 volts with the absence of extremity activity.? This was repeated at level L2, 3 on left side.?? Sensory stimulation was carried out.? Concordant pain was realized at the above- mentioned sites.? Then radiofrequency lesioning was carried out times 90 seconds at 80 degrees times 2 lesions at each level.? The radiofrequency probe was removed prior to cannula removal.? The above-mentioned injectate was placed in 1 mL increments.? The needle was removed.? Insertion sites were covered.? The patient was taken to the postoperative recovery area and monitored for an appropriate length of time before being found suitable for discharge in the company of a responsible adult. Anesthesia: MAC Surgeon: Eduardo Hubbard Pathology: none sent Condition: stable Disposition: no change
[2024-06-02 10:14] VITALS: BP 128/73; PULSE 79; TEMP 36.4; O2SAT 98
[2024-06-02 10:16] VITALS: BP 120/85; PULSE 75; TEMP 36.4; O2SAT 97
== END 2024-06-02 10:40 | disposition home or self-care (01) ==
LOC: SURGOUT 08:08
PROVIDERS: PCP Family Medicine; Visit Provider Anesthesiology
PROC: (CPT 1992; principal; 2024-06-02 09:50)
DX: M47.816 Spondylosis without myelopathy or radiculopathy, lumbar region (principal); E11.9 Type 2 diabetes mellitus without complications; Z79.4 Long term (current) use of insulin; Z79.84 Long term (current) use of oral hypoglycemic drugs
CPT/HCPCS: 36415; 64635; 64636; 82948; 84703; J0665; J2704; J3301

== ENCOUNTER 2024-07-03 09:13 | Outpatient (OUT) | payer MEDICARE, MEDICAID, SELFPAY ==
--- NOTE | 2024-07-03 09:28 | PM.CN ---
Consult Note: HPI Data of Consult Patient: known to practice within the last 3 years Requesting Physician: Christina Chiu NP Primary Care Provider: Kadi Chung Consult Narrative Reason for consult: f/u Narrative: Lindsey Knapp a pleasant 43 year old female with chronic low back pain secondary to lumbar facet arthropathy and spondylosis presents for evaluation. Pain 0/10 increasing to 2/10 with bending, activity improved with sitting, unchanged by heat/ice or massage. patient currently utilizing tylenol PRN and tizanidine 4mg BID with benefit. left L1/2 L2/3 facet joint RFA providing 80% improvement ongoing, NICOLETTE previously 16% now 2%. patient pleased with the results. cc:: CC: Christina Chiu NP Review of Systems ROS Status of ROS 10 or more systems reviewed and unremarkable except as noted in history and below Musculoskeletal Reports: back pain PFSH [facility] Medical History (Updated 05/29/24 @ 13:56 by Jenifer Butler) Low back pain ?M54.50 - Low back pain, unspecified (ICD-10) Diabetes ?E11.9 - Type 2 diabetes mellitus without complications (ICD-10) Surgical History H/O shoulder surgery ?Z98.890 - Other specified postprocedural states (ICD-10) Meds Home Medications and Allergies Home Medications ?Medication ?Instructions ?Recorded ?Confirmed ?Type albuterol sulfate 90 mcg/actuation 1 inh inhalation QID 02/27/24 06/02/24 History aerosol inhaler insulin aspart U-100 100 unit/mL 6 unit subcut TID 02/27/24 06/02/24 History (3 mL) subcutaneous pen (Novolog FlexPen U-100 Insulin aspart) insulin glargine 100 unit/mL 10 unit subcut QPM 02/27/24 06/02/24 History subcutaneous solution (Lantus U-100 Insulin) insulin lispro 100 unit/mL 10 unit subcut TID 02/27/24 06/02/24 History subcutaneous cartridge lisinopril 20 mg tablet 20 mg PO DAILY 02/27/24 06/02/24 History metformin 1,000 mg tablet 1,000 mg PO DAILY 02/27/24 06/02/24 History omeprazole 40 mg capsule,delayed 40 mg PO DAILY 02/27/24 06/02/24 History release rosuvastatin 40 mg tablet 40 mg PO DAILY 02/27/24 06/02/24 History sitagliptin phosphate 25 mg tablet 25 mg PO DAILY 02/27/24 06/02/24 History (Januvia) tizanidine 4 mg capsule (Zanaflex) 4 mg PO BID PRN muscle spasticity 02/27/24 06/02/24 History Allergies Allergy/AdvReac Type Severity Reaction Status Date / Time ibuprofen AdvReac Unknown Unknown Verified 06/02/24 09:32 Exam Constitutional Documenting provider has reviewed patient's vital signs: yes Common normals: no apparent distress, oriented x3, healthy appearing, alert and well nourished General appearance: cooperative HENMT Common normals: normocephalic, hearing grossly normal bilaterally and moist oral mucous membranes Head and scalp: normocephalic Eye Common normals: PERRL Pupil: PERRL Neck & C-Spine Common normals: full ROM General: normal visual inspection Chest Common normals: inspection of chest normal Respiratory Common normals: normal respiratory effort, no retractions and no use of accessory muscles Back & Pelvis Lumbar spine/lower back: lumbar ROM normal, paraspinal muscle tenderness, paraspinal muscle spasm and straight leg raise negative bilaterally; no pain with ROM Other: negative facet loading, non tender over L1-3 facet joints no radiculopathy trigger points noted to left paralumbar spine around latissimus dorsi strength 5/5 in BLE Back image (female): 1. Extremity Common normals: normal to inspection and full ROM Neuro Common normals: oriented x3, CN's II-XII intact bilaterally, moves all extremities, no focal motor deficits, no sensory deficits noted and deep tendon reflexes 2+ bilaterally Sensorium/orientation: alert Motor exam: strength 5/5 throughout and no movement abnormalities noted Psych Common normals: mental status grossly normal, thought process normal, cooperative, affect normal, speech normal and activity/motor behavior normal Speech: normal speech Thought process: normal thought process Results Additional Findings Additional findings: If on a controlled substance or opioids, I have checked an [place]ARRS report on this patient and there are no aberrancies noted in the prescribing history.??If on a controlled substance or opioid a drug screen was completed and reviewed within the last year, and if there has not been a drug screen completed we ordered one today to monitor higher risk, state monitored pain medication use. As part of providing excellent, safe, comprehensive care, the following was completed at our patient's visit: 1. A medication reconciliation and review to ensure accurate knowledge of current/active medications, including asking our patients to inform us about any [id number] medications or herbal remedies/nutritional supplements/alternative remedies. 2. A review to specifically ensure our patients have had annual screening for screening for depression, screening for tobacco use, and screening for unhealthy alcohol use. For concerning screenings had a discussion with the patient, provided patient education, and recommended follow-up with primary care provider when appropriate. If patient noted with a risk of falling, they received education on strength, gait, and balance training to prevent future risk of falling. Assessment and Plan Assessment and Plan (1) Lumbar spondylosis: Assessment and Plan: 80% improvement ongoing from left L1/2 L2/3 facet joint RFA (2) Myalgia: Plan increase tizanidine 4mg TID risks vs benefits reviewed, pt declining left latissimus dorsi TPI for trigger points at this time. can call to reschedule f/u 6 months, sooner if needed
== END 2024-07-03 09:14 | disposition home or self-care (01) ==
LOC: PM 09:13
PROVIDERS: PCP Family Medicine; Visit Provider Nurse Practitioner
DX: M47.816 Spondylosis without myelopathy or radiculopathy, lumbar region (principal); M79.10 Myalgia, unspecified site
CPT/HCPCS: G0463